=== PATIENT | female | born 1980 | race Caucasian/White ===

== ENCOUNTER 2020-09-26 15:01 | Inpatient (IN) | payer MEDICAID, SELFPAY ==
--- NOTE | ~2020-09-26 | XR_ITS ---
EXAMINATION: XR CHEST CLINICAL INFORMATION: Leukocytosis COMPARISON: None TECHNIQUE: Frontal view of the chest was obtained. FINDINGS: No convincing evidence for an acute process. No obvious failure or infiltrate. There is no effusion. XR/XR chest 1V IMPRESSION: No convincing evidence for an acute process.
--- NOTE | ~2020-09-26 | MR_ITS ---
EXAMINATION: MR CERVICAL SPINE WITHOUT AND WITH CONTRAST CLINICAL INFORMATION: Paraplegic. Uncontrollable muscle spasms. Severe neck pain. History of epidural abscess. COMPARISON: None available. TECHNIQUE: MRI of the cervical spine was obtained using routine sequences without and following the administration of 7.5 mL of Gadavist intravenous contrast. FINDINGS: Moderately motion degraded exam. Reversal the normal cervical lordosis centered on C5-C6. Erosive/destructive changes of the anterior C6 and C7 vertebral bodies. There is enhancement of the C5-C7 vertebral bodies. Phlegmonous enhancement within the prevertebral soft tissues from C5-C7. Mild edema within the posterior elements of C6 and C7. No additional marrow edema/enhancement within the remaining cervical segments. Advanced degenerative disc disease from C4-C7. Moderate degenerative disc disease at C3-C4. Increased T2 signal throughout the central and dorsal cord from C5-C7. No associated abnormal cord enhancement. No additional demonstrated soft tissue abnormalities in the visualized neck. The flow voids of the major cervical vessels are maintained. Normal appearance of the cervicomedullary junction and visualized posterior fossa. Moderate mucosal thickening of the sphenoid sinus. SPINAL LEVELS: C2-C3: Normal annular contour. There is mild right and no left uncovertebral joint arthropathy. There is moderate right and mild left facet joint arthropathy. There is mild right and no left neural foraminal stenosis. There is no spinal canal stenosis. C3-C4: Mild disc-osteophyte complex. There is no uncovertebral joint arthropathy. There is moderate bilateral facet joint arthropathy. There is mild left and no right neural foraminal stenosis. There is mild spinal canal stenosis. C4-C5: Moderate disc-osteophyte complex with superimposed shallow central disc protrusion. There is moderate right and mild left uncovertebral joint arthropathy. There is moderate bilateral facet joint arthropathy. There is moderate right and mild left neural foraminal stenosis. There is mild spinal canal stenosis. C5-C6: Moderate disc-osteophyte complex. There is moderate bilateral uncovertebral joint arthropathy. There is moderate bilateral facet joint arthropathy. There is moderate left and mild right neural foraminal stenosis. There is moderate spinal canal stenosis. C6-C7: Mild disc-osteophyte complex. There is mild bilateral uncovertebral joint arthropathy. There is mild bilateral facet joint arthropathy. There is no neural foraminal stenosis. There is no spinal canal stenosis. C7-T1: Mild disc-osteophyte complex. There is no uncovertebral joint arthropathy. There is no facet joint arthropathy. There is no neural foraminal stenosis. There is no spinal canal stenosis. MR/MR cervical spine wo/w con IMPRESSION: Exam is partially limited by motion. Within this limitation, there appears to be erosive/destructive change of the anterior C6-C7 vertebral bodies. Enhancement of the C5-C7 vertebral bodies with prevertebral soft tissue edema/enhancement. Findings are suspicious for a discitis-osteomyelitis complex from C5-C7. No discrete drainable fluid collection demonstrated. Moderate multilevel degenerative spondyloarthropathy of the cervical spine. Most notably, there appears to be mild to moderate spinal canal stenoses from C3-C6. Moderate neural foraminal stenoses at C4-C5 and C5-C6. Moderate T2 signal throughout the spinal cord from C5-C7 suggestive of chronic myelomalacia. No abnormal enhancement within the spinal cord at this time. No demonstrated epidural collection.
--- NOTE | ~2020-09-26 | CT_ITS ---
EXAMINATION: CT HEAD WITHOUT CONTRAST (STROKE PROTOCOL) CLINICAL INFORMATION: Stroke protocol. Severe headache on Lovenox. COMPARISON: There are no prior studies available for comparison. TECHNIQUE: Contiguous axial imaging was performed from the skull base to vertex without intravenous administration of contrast. This CT examination was performed using dose optimization techniques as appropriate, variously including the following: *Automated exposure control *Adjustment of mA and/or kV according to patient size (this includes techniques or standardized protocols for targeted exams where dose is matched to indication/reason for exam; i.e. extremities or head) *Use of iterative reconstruction technique DLP: 702 mGy-cm FINDINGS: There is no intracranial hemorrhage, hematoma, or extra-axial fluid collection. The ventricles are normal in size. There is no hydrocephalus, edema, or mass effect. The romero-white matter differentiation appears symmetric. There is no territorial acute infarct or mass lesion. The calvarium appears intact. There is no pneumocephalus or orbital emphysema. The mastoid air cells are well-aerated. The frontal sinuses are hypoplastic. There is extensive opacification of the bilateral sphenoid, ethmoid and maxillary sinuses. In addition there are fluid levels in the bilateral maxillary sinuses. CT/CT head for stroke IMPRESSION: 1. There are no acute bleeds or territorial infarcts. No masses are demonstrated. 2. There is severe pansinus opacification as described above, with fluid levels in the bilateral maxillary sinuses. 3. This critical result was discussed with Diann Forman by telephone on 09/26/2020 at 3:21 PM and it was ascertained that the content and urgency of the report was understood at the time of direct communication.
--- NOTE | ~2020-09-26 | MR_ITS ---
EXAMINATION: MR BRAIN WITHOUT AND WITH CONTRAST CLINICAL INFORMATION: Neck stiffness. Evaluate for meningitis. COMPARISON: CT scan of the head 09/26/2020. TECHNIQUE: Multiplanar MR imaging of the brain was performed without and with contrast. A total of 7.5 mL Gadavist was utilized for this examination. FINDINGS: Postcontrast images reveal no abnormal mass or enhancement within the intracranial compartment. No intracranial mass effect or midline shift. Lateral and third ventricles are normal. No hydrocephalus. Midline structures including the cervicomedullary junction are normal. Although only partially included within the [id number] of this examination there is multilevel degenerative spondylosis of the cervical spine with loss of normal bone marrow signal intensity involving the left facet joints at multiple levels and the adjoining endplates at C5-C6. Midline structures are otherwise unremarkable. There is no acute territorial infarct. No pathological magnetic susceptibility artifact. Intracranial vascular flow voids are maintained. There is a trace left mastoid tip effusion. Moderate to severe paranasal sinus disease. A perforation of the nasal septum is noted. Globes and orbits are unremarkable. MR/MR head/brain wo/w con IMPRESSION: There is advanced multilevel degenerative spondylosis of the cervical spine that is partially included within the previous examination. Otherwise unremarkable examination. No evidence of acute territorial infarct or hemorrhage. No abnormal intracranial mass or enhancement.
[2020-09-26 15:30] VITALS: BP 139/97; BP 180/110; PULSE 120; PULSE 128; RESP 16; TEMP 37; O2SAT 100; BMI 32.1
[2020-09-26] MEDS: HYDROmorphone HCl 1 MG/ML SYRINGE IVPUSH (15:37)
[2020-09-26] MEDS: LORazepam 2 MG/ML VIAL 1 MG IVPUSH (15:47)
[2020-09-26] MEDS: 0.9 % Sodium Chloride 1,000 ML 999 ML IVCONT ×2 (15:47→18:30)
[2020-09-26 15:56] VITALS: BP 157/92; PULSE 133; RESP 20; O2SAT 96
--- NOTE | 2020-09-26 16:18 | ED.HA ---
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 paraplegic, can move RUE somewhat c/o severe headache starting 45min [employer] is on lovenox 40m daily, worst headache of her life, was on the phone when it happened, completed antibiotics she is at local [facility] mental health director care, DNR/DNI MD elicited complaint: headache Pertinent past history: migraines Onset (ago): minute(s) (45) Onset description: suddenly Location: right Severity: severe Quality & Timing: throbbing Exacerbating factors: none Relieving factors: nothing Context: occurred at rest Associated symptoms: nausea, numbness and weakness Treatments prior to arrival: none Related Data Allergies Allergy/AdvReac Type Severity Reaction Status Date / Time Unable to Assess Allergy Verified 09/26/20 15:08 Review of Systems Review of Systems: Constitutional : No Fever, No Chills, No Fatigue ENT/Mouth : No sore throat, No Rhinorrhea Eyes: No Eye Pain, No Swelling, No Redness, pos neck pain Cardiovascular : No Chest Pain, No SOB, No Dyspnea on Exertion Respiratory : No Cough, No Sputum Gastrointestinal : No Nausea, No Vomiting, No Diarrhea, No abdominal Pain Genitourinary : No Dysuria, No Urinary Frequency, No Hematuria, Musculoskeletal : No joint pain, No Myalgias, No Joint Swelling Skin : No Skin Lesions, No rash Neuro : pos Weakness, pos Numbness, No Dizziness, positive Headache Psych : No Anxiety/Panic, No Depression Heme/Lymph: No Bruising, No Bleeding,No Lymphadenopathy Endocrine : No Polyuria, No Polydipsia All other systems reviewed and are negative [facility] Past Medical History Attestation statement: The following information was validated with the patient. Medical History Anxiety Borderline personality disorder Intraspinal abscess MDD (major depressive disorder) Muscle spasm Paraplegia Polysubstance abuse PTSD (post-traumatic stress disorder) Quadriparesis Tobacco dependence Social History Social History (Updated 09/26/20 @ 16:27 by Diann Brooklyn, DO) Smoking Status: Former smoker Use of substances other than those prescribed or required for medical reasons: No Advance Directives: Yes Physical Exam Vital Signs: Vital Signs: Last Vital Signs Temp 98.6 F 09/26/20 15:30 Pulse 133 H 09/26/20 15:56 Resp 20 09/26/20 15:56 BP 157/92 H 09/26/20 15:56 Pulse Ox 96 09/26/20 15:56 Body Mass Index 32.1 Appearance: Alert. Oriented X3. very anxious moderate acute distress. Eyes: Pupils equal, round and reactive to light. ENT: Pharynx dry MMM Neck: Normal inspection. Neck supple. CVS: tachycardic heart rate and rhythm. Pulses normal. Respiratory: No respiratory distress. Breath sounds normal. Abdomen: Soft and nontender. mild distention but no ttp Skin: Skin warm and dry. Normal skin color. poor skin turgor. Extremities: spastic, does not move LE Neuro: Oriented X 3. able to move RUE but LUE weaker baseline per her notes, spastic in nature states both hands her fingers feel tingling NIH Stroke Scale Internal: Initial- Upon Arrival Level of Consciousness: Alert Level of Consciousness Questions: Answers both questions correctly Level of Consciousness Commands: Performs both tasks correctly Best Gaze: Normal Visual: No visual loss Facial Palsy: Normal Motor Arm (Right): Drift Motor Arm (Left): Some effort against gravity Motor Leg (Right): No movement Motor Leg (Left): No movement Limb Ataxia: Present in one limb Sensory: Mild to moderate sensory loss Best Language: No aphasia Dysarthia: Normal Extinction and Inattention: Visual, tactile, auditory, spatial, or personal inattention Score: 14 Course Course Course Narrative: NIH 14 due to chronic issues and paraplegia her presentation would be more concerning for a SAH given lovenox use, but she will not be able to have LP, if MRI of neck is normal would consider CTA of head and neck signed out pending workup MDM - Headache MDM Narrative Medical decision making narrative: 40 yo female brought in as stroke alert for severe headache and both UE tingling but she is baseline paraplegia from epidural abscess - given her presentation daily lovenox use I do not think she is a tPa candidate I do not think this is ischemic stroke, labs, CT head, her neck is in severe pain as well will obtain MRI of cervical spine as well. Discharge Plan Discharge Clinical Impression: Headache Qualifiers: Headache type: unspecified Headache chronicity pattern: acute headache Intractability: intractable Qualified Code(s): R51.9 - Headache, unspecified
[2020-09-26 17:09] LABS: MANUAL DIFF FLAG NO
[2020-09-26 17:11] LABS: Basophils Absolute Auto 0.1 X10*3/uL (0.0-0.2); Basophils Percent Auto 0.4 % (0-2); Eosinophils Absolute Auto 0.2 X10*3/uL (0.0-0.4); Eosinophils Percent Auto 1.9 % (0-4); Hemoglobin 14.5 g/dl (12.0-16.0); Imm Gran Abs Auto 0.04 X10*3/uL (0.00-0.03); Imm Gran Pct Auto 0.3 % (0.0-0.4); Lymphocytes Absolute Auto 1.8 X10*3/uL (1.2-4.9); Lymphocytes Percent Auto 14.4 % (20-40); Mean Corpuscular Hemoglobin 28.5 pg (27.0-33.0); Mean Corpuscular Volume 86.6 fL (80-98); Mean Platelet Volume 8.2 fL (9.4-12.3); Monocytes Absolute Auto 0.5 X10*3/uL (0.1-1.2); Monocytes Percent Auto 3.8 % (2-11); Neutrophils Absolute Auto 10.1 X10*3/uL (2.0-8.3); Neutrophils Percent Auto 79.2 % (45-73); Platelet Count 633 X10*3/uL (160-400); Red Blood Count 5.08 X10*6/uL (4.20-5.50); Red Cell Distribution Width 11.9 % (11.0-16.0); White Blood Count 12.8 X10*3/uL (4.8-10.8)
[2020-09-26 17:16] LABS: INTERNATIONAL NORM RATIO 1.2 (0.9-1.1); Prothrombin Time 14.2 SEC (10.8-13.0)
[2020-09-26 17:19] LABS: Glucose, Whole Blood 113 mg/dL (60-115)
[2020-09-26 17:38] LABS: Anion Gap 18 (12-20); Blood Urea Nitrogen 8 mg/dL (9-16); Calcium 10.7 mg/dL (8.4-10.2); Carbon Dioxide 25 mmol/L (22-29); Chloride 103 mmol/L (96-108); Creatinine Clr Calc Pharmacy 112.5; Estimated Glomerular Filt Rate > 60; Glucose Random 105 mg/dL (60-115); Potassium 4.5 mmol/L (3.3-5.1); Sodium 141 mmol/L (135-145)
[2020-09-26 17:48] LABS: Troponin-I High Sensitivity 21.5 ng/L (<3.5-17.0)
[2020-09-26 18:26] LABS: Stroke Lab Use COMPLETE
[2020-09-26 18:34] VITALS: BP 123/9; PULSE 133; RESP 19; O2SAT 97
--- NOTE | 2020-09-26 18:37 | PC.NURSE ---
ns bolus started per md
[2020-09-26 19:40] VITALS: BP 110/64; PULSE 117; RESP 13; TEMP 37; O2SAT 100
[2020-09-26 20:20] VITALS: BP 108/59; PULSE 112; RESP 18; TEMP 36.8; O2SAT 98
--- NOTE | 2020-09-26 21:47 | PC.NURSE ---
Pt very anxious about this hospital not having adult briefs available. This RN spoke with Dania Killian, and Sven (patient's proof technician/friend) will be bringing adult briefs for the patient around 2am when he gets out of work. Pt aware of this and okay with this. Will continue to monitor.
[2020-09-26 22:06] VITALS: BP 112/64; PULSE 111; RESP 13; TEMP 37.5; O2SAT 99
[2020-09-26] MEDS: Piperacillin Sodium/Tazobactam 3.375 GM in 0.9 % Sodium Chloride 50 ML IV (22:30)
[2020-09-26 23:17] LABS: COVID-19 Test Negative (Negative); IDNOW Serial# 9DD0AD1C
--- NOTE | 2020-09-26 23:20 | P.HPHOSP_ITS ---
History of Present Illness Date of Service: 09/26/20 Chief Complaint: Headache/neck pain 40-year-old female with a past medical history of anxiety, depression, PTSD, migraine headaches, tobacco dependence, history of IV drug abuse, history of C5 spinal abscess subsequent resultant quadriplegia, currently long term resident presented to the hospital with a chief complaint of severe headache and neck pain. Patient reports that she has been having neck pain some time, no change in character. Mentioned that she has migraine headaches in the past and current headache is slightly different. But mentions is improving significantly at the time of my entry. Denies any blurry visions. Denies any fever chills cough. Denies any chest pain palpitations. Patient also denies having any pressure ulcers on the back. Complains of also some legs. Review of all other systems is negative except mentioned above ER course: Per ER team patient had CT head that showed no acute findings. Given IV Dilaudid with improvement in the headache. Follow-up MRI of the neck showed C5- C7 diskitis/osteomyelitis; started on IV vancomycin and Zosyn. Admitted to the hospital for further management. [facility] Medical History Anxiety Borderline personality disorder Intraspinal abscess MDD (major depressive disorder) Muscle spasm Paraplegia Polysubstance abuse PTSD (post-traumatic stress disorder) Quadriparesis Tobacco dependence Social History Household Members: Other Housing: [facility] Smoking Status: Former smoker Advance Directives Date on File: 09/26/20 service: No Current occupational status: disabled Meds Allergies Allergy/AdvReac Type Severity Reaction Status Date / Time Unable to Assess Allergy Verified 09/26/20 15:08 Active Medications: Current Medications Generic Name Dose Route Start Last Admin Trade Name Freq PRN Reason Stop Dose Admin Acetaminophen 650 mg 09/26/20 23:15 Acetaminophen 325 Mg Tablet PO Q6H PRN Pain, Mild (Pain Scale 1-3) Enoxaparin Sodium 40 mg 09/26/20 23:15 Enoxaparin Sodium 40 Mg/0.4 Ml Syringe SUBCUT Q24H ELIDIA Dextrose/Sodium Chloride 1,000 mls @ 100 mls/hr 09/26/20 23:15 D51/2ns IVCONT .Q10H ELIDIA Vancomycin HCl 1,000 mg/ 270 mls @ 270 mls/hr 09/26/20 23:30 Sodium Chloride IV Q12H [facility] Piperacillin Sod/Tazobactam 50 mls @ 100 mls/hr 09/26/20 23:30 Sod 3.375 gm/ Sodium Chloride IV Q6H ELIDIA Oxycodone HCl 5 mg 09/27/20 23:15 Oxycodone Hcl Immed Release 5 Mg Tablet PO Q6H PRN Pain, Severe (Pain Scale 7-10) Pharmacy Consult 1 each 09/26/20 23:18 Consult Rx Vancomycin Dosing MISCELLANE DAILY PRN Consult order Sodium Chloride 3 ml 09/27/20 00:00 0.9 % Sodium Chloride Flush 3 Ml Syringe IVFSH [facility] Home Medications Medication Instructions Recorded Confirmed Last Taken Type COVID-19 vacc,mRNA([facility])(PF) 0.3 ml IM ONCE 09/27/20 09/27/20 09/23/20 History Fleet Enema 118 ml KS DAILY PRN 09/27/20 09/27/20 Unknown History acetaminophen 650 mg PO Q4H PRN 09/27/20 09/27/20 09/26/20 History alum-mag hydroxide-simeth 30 ml PO QID PRN MDD 180 ml 09/27/20 09/27/20 09/26/20 History [Yesenia-Mox Antacid-Antigas] ammonium lactate 1 appl TOPICAL BID 09/27/20 09/27/20 09/26/20 History baclofen 10 mg PO TID 09/27/20 09/27/20 09/26/20 History benzocaine 3 mg PO Q2H PRN 09/27/20 09/27/20 09/26/20 History bisacodyl 10 mg KS DAILY PRN 09/27/20 09/27/20 09/26/20 History bupropion HCl [Wellbutrin XL] 300 mg PO QAM 09/27/20 09/27/20 09/26/20 History cholecalciferol (vitamin D3) 25 mcg PO DAILY 09/27/20 09/27/20 09/26/20 History cyclobenzaprine 10 mg PO TID 09/27/20 09/27/20 09/26/20 History diclofenac sodium 2 g TOPICAL Q6H PRN 09/27/20 09/27/20 09/26/20 History diphenhydramine HCl 25 mg PO Q6H PRN 09/27/20 09/27/20 09/26/20 History docusate sodium [Colace] 100 mg PO BID 09/27/20 09/27/20 09/26/20 History enoxaparin 40 mg SUBCUT DAILY 09/27/20 09/27/20 09/26/20 History fluticasone propionate 2 spray INTRANASAL DAILY 09/27/20 09/27/20 09/26/20 History hydrocortisone 1 appl TOPICAL Q8H PRN 09/27/20 09/27/20 09/26/20 History lorazepam 0.5 mg PO Q8H PRN 09/27/20 09/27/20 09/26/20 History magnesium citrate 150 ml PO DAILY PRN 09/27/20 09/27/20 09/26/20 History magnesium hydroxide [Milk of 30 ml PO DAILY PRN 09/27/20 09/27/20 09/26/20 History Magnesia] methadone 20 mg PO TID 09/27/20 09/27/20 09/26/20 History naloxone 4 mg INTRANASAL Q3M PRN 09/27/20 09/27/20 09/26/20 History ondansetron 4 mg PO Q4H PRN 09/27/20 09/27/20 09/26/20 History pantoprazole 40 mg PO DAILY 09/27/20 09/27/20 09/26/20 History polyethylene glycol 3350 [Miralax] 17 g PO DAILY 09/27/20 09/27/20 09/26/20 History sennosides 17.2 mg PO BID 09/27/20 09/27/20 09/26/20 History tizanidine [Zanaflex] 4 mg PO Q8H PRN 09/27/20 09/27/20 09/25/20 History tuberculin PPD 1 tb unit INTRADERMAL ONCE 09/27/20 09/27/20 09/24/20 History zolpidem [Ambien] 5 mg PO BEDTIME PRN 09/27/20 09/27/20 09/26/20 History gabapentin 200 mg PO TID 09/28/20 09/28/20 09/26/20 History Physical Exam Vital Signs and Narrative: Vital Signs: Last Vital Signs Temp 99.5 F 09/26/20 22:06 Pulse 111 H 09/26/20 22:06 Resp 13 09/26/20 22:06 BP 112/64 09/26/20 22:06 Pulse Ox 99 09/26/20 22:06 Body Mass Index 32.1 Gen: Appears be in no acute distress HEENT: NCAT, Moist mucosa. Pulmonary: Vesicular breath sounds, fair air entry CVS: Normal S1-S2 Abdomen: BS+, Soft, Nontender Extremities: Warm well perfused; ulcers on the leg appears healing. Neuro: Alert and awake. Quadriplegic Results Labs CBC and Chem 7: 09/29/20 06:23 09/27/20 05:29 Labs: Laboratory Results - last 24 hr 09/26/20 09/26/20 09/26/20 15:31 17:02 17:02 MCV 86.6 MCH 28.5 MCHC 33.0 RDW 11.9 Plt Count 633 H MPV 8.2 L Immature Gran % (Auto) 0.3 Neut % (Auto) 79.2 H Lymph % (Auto) 14.4 L [place] % (Auto) 3.8 Eos % (Auto) 1.9 Baso % (Auto) 0.4 Lymph # (Auto) 1.8 [place] # (Auto) 0.5 Eos # (Auto) 0.2 Baso # (Auto) 0.1 Abs Immat Gran (auto) 0.04 H Absolute Neuts (auto) 10.1 H Absolute Nucleated RBC 0.000 Nucleated RBC % (auto) 0.0 PT 14.2 H INR 1.2 H Anion Gap Estim Creat Clear Calc Estimated GFR POC Glucose 113 Random Glucose Calcium Troponin I High Sens Hold Red Top COVID-19 ([facility]) COVID-19 Clin Com 09/26/20 09/26/20 09/26/20 17:02 17:02 17:02 MCV MCH MCHC RDW Plt Count MPV Immature Gran % (Auto) Neut % (Auto) Lymph % (Auto) [place] % (Auto) Eos % (Auto) Baso % (Auto) Lymph # (Auto) [place] # (Auto) Eos # (Auto) Baso # (Auto) Abs Immat Gran (auto) Absolute Neuts (auto) Absolute Nucleated RBC Nucleated RBC % (auto) PT INR Anion Gap 18 Estim Creat Clear Calc 112.5 Estimated GFR > 60 POC Glucose Random Glucose 105 Calcium 10.7 H Troponin I High Sens 21.5 H Hold Red Top See Note COVID-19 ([facility]) COVID-19 Clin Com 09/26/20 22:58 MCV MCH MCHC RDW Plt Count MPV Immature Gran % (Auto) Neut % (Auto) Lymph % (Auto) [place] % (Auto) Eos % (Auto) Baso % (Auto) Lymph # (Auto) [place] # (Auto) Eos # (Auto) Baso # (Auto) Abs Immat Gran (auto) Absolute Neuts (auto) Absolute Nucleated RBC Nucleated RBC % (auto) PT INR Anion Gap Estim Creat Clear Calc Estimated GFR POC Glucose Random Glucose Calcium Troponin I High Sens Hold Red Top COVID-19 ([facility]) Negative COVID-19 Clin Com See Note Imaging Radiologist's Impressions: Impressions Head CT 09/26/20 15:08 IMPRESSION: 1. There are no acute bleeds or territorial infarcts. No masses are demonstrated. 2. There is severe pansinus opacification as described above, with fluid levels in the bilateral maxillary sinuses. 3. This critical result was discussed with Diann Forman by telephone on 09/26/2020 at 3:21 PM and it was ascertained that the content and urgency of the report was understood at the time of direct communication. Cervical Spine MRI 09/26/20 15:43 IMPRESSION: Exam is partially limited by motion. Within this limitation, there appears to be erosive/destructive change of the anterior C6-C7 vertebral bodies. Enhancement of the C5-C7 vertebral bodies with prevertebral soft tissue edema/enhancement. Findings are suspicious for a discitis-osteomyelitis complex from C5-C7. No discrete drainable fluid collection demonstrated. Moderate multilevel degenerative spondyloarthropathy of the cervical spine. Most notably, there appears to be mild to moderate spinal canal stenoses from C3-C6. Moderate neural foraminal stenoses at C4-C5 and C5-C6. Moderate T2 signal throughout the spinal cord from C5-C7 suggestive of chronic myelomalacia. No abnormal enhancement within the spinal cord at this time. No demonstrated epidural collection. Chest X-Ray 09/26/20 20:06 IMPRESSION: No convincing evidence for an acute process. Assessment and Plan (1) Cervical discitis: Status: Acute 40-year-old female with a past medical history of anxiety, depression, PTSD, history of migraines, history of C5 spinal abscess and subsequent quadriplegia currently long term resident; presented to the hospital with a c hief complaint of headache. Headache: Likely migraine headache. But patient reports slightly different in character. Denies any associated nausea vomiting or blurry visions. Improved with Dilaudid in the ER. If if the headache reoccurs will defer to the a.m. team to consider neurology consult C5-C7 diskitis/osteomyelitis: Continue vanc and Zosyn. Id consult Troponins elevated: Patient denies any chest pain. EKG nonischemic. Will repeat troponins. Spoke to Dr Pineda-> mentioned no acute intervention. Echocardiogram. History of quadriplegia: Chronic. Continue home medications. Patient reports that she is on gabapentin, baclofen, Flexeril, methadone, Xanax. Will be continued once med rec is completed/confirmed. Leg ulcers: Pressure ulcer care per RN. Appears healing. DVT prophylaxis: Lovenox Full code-> spoke to the patient. Patient wants her DNR status to be reversed to Full code.
[2020-09-26] MEDS: vancomycin HCL 1,000 MG in 0.9 % Sodium Chloride 250 ML 270 MG IV (23:44)
--- NOTE | 2020-09-27 | ECG_ITS ---
Test Reason : high trops Blood Pressure : / mmHG Vent. Rate : 106 BPM Atrial Rate : 106 BPM P-R Int : 152 ms QRS Dur : 076 ms QT Int : 386 ms P-R-T Axes : 039 066 068 degrees QTc Int : 512 ms Sinus tachycardia Prolonged QTc No previous ECGs available Referred By: Ernesto Constantino Electronically Signed By:KESHAWN STAHL
--- NOTE | 2020-09-27 00:35 | PC.NURSE ---
HOSPITALIST AT BEDSIDE EVALUATING PATIENT. COMPLETE LINEN CHANGE COMPLETED, BOWEL MOVEMENT NOTED.
[2020-09-27 01:47] LABS: Troponin-I High Sensitivity 68.6 ng/L (<3.5-17.0)
[2020-09-27] MEDS: 0.9 % Sodium Chloride Flush 3 ML SYRINGE IVFLUSH ×2 (02:56→14:16)
[2020-09-27] MEDS: Dextrose 5 % and 0.45 % NaCl 1,000 ML 100 ML IVCONT ×2 (02:56→08:59)
[2020-09-27] MEDS: Enoxaparin Sodium 40 MG/0.4 ML SYRINGE SUBCUT (02:57)
[2020-09-27] MEDS: LORazepam 0.5 MG TABLET PO (03:00)
[2020-09-27] MEDS: Cyclobenzaprine HCl 5 MG TABLET PO (03:00)
[2020-09-27] MEDS: Acetaminophen 325 MG TABLET 650 MG PO (03:00)
[2020-09-27] MEDS: oxyCODONE HCl Immed Release 5 MG TABLET PO (03:22)
[2020-09-27] MEDS: Zolpidem Tartrate 5 MG TABLET PO ×2 (03:23→22:43)
[2020-09-27] MEDS: Piperacillin Sodium/Tazobactam 3.375 GM in 0.9 % Sodium Chloride 50 ML IV ×4 (03:38→22:03)
[2020-09-27 04:00] VITALS: BP 104/56; PULSE 111; RESP 16; TEMP 37.2; O2SAT 100
[2020-09-27 06:06] LABS: MANUAL DIFF FLAG NO
[2020-09-27 06:27] VITALS: BMI 31.6
[2020-09-27 06:52] LABS: Basophils Percent Auto 0.3 % (0-2); Eosinophils Absolute Auto 0.2 X10*3/uL (0.0-0.4); Eosinophils Percent Auto 1.8 % (0-4); Hematocrit 33.6 % (37-47); Imm Gran Abs Auto 0.04 X10*3/uL (0.00-0.03); Imm Gran Pct Auto 0.3 % (0.0-0.4); Lymphocytes Absolute Auto 2.9 X10*3/uL (1.2-4.9); Lymphocytes Percent Auto 24.6 % (20-40); Mean Corpuscular HGB Conc 32.7 g/dl (31.0-35.0); Mean Corpuscular Hemoglobin 28.6 pg (27.0-33.0); Mean Corpuscular Volume 87.3 fL (80-98); Mean Platelet Volume 8.7 fL (9.4-12.3); Monocytes Absolute Auto 0.9 X10*3/uL (0.1-1.2); Monocytes Percent Auto 7.5 % (2-11); Neutrophils Absolute Auto 7.7 X10*3/uL (2.0-8.3); Neutrophils Percent Auto 65.5 % (45-73); Platelet Count 488 X10*3/uL (160-400); Red Blood Count 3.85 X10*6/uL (4.20-5.50); Red Cell Distribution Width 12.2 % (11.0-16.0); White Blood Count 11.7 X10*3/uL (4.8-10.8)
[2020-09-27 07:14] VITALS: BP 90/54; PULSE 109; RESP 20; TEMP 36.6; O2SAT 92
[2020-09-27 07:14] LABS: Blood Urea Nitrogen 12 mg/dL (9-16); Calcium 9.2 mg/dL (8.4-10.2); Creatinine Clr Calc Pharmacy 123.5; Estimated Glomerular Filt Rate > 60; Glucose Random 83 mg/dL (60-115)
--- NOTE | 2020-09-27 07:27 | PC.NURSE ---
0130; critical value troponin 68.6, MD notified. Patient denies any chest pain/discomfort at this time. Order for EKG, troponin labs for 0300. EKG done and sent to via [employer]. 0337; critical value troponin 50.0, notified via [employer]. No new orders at this time.
--- NOTE | 2020-09-27 07:30 | CA_ITS ---
Transthoracic Echocardiogram Patient (Last, First, Middle): Shiloh Lopez, Gender: Female Date of : 1980 Age: 40 Procedure Date: 09/27/2020 Procedure Type: Transthoracic Echocardiogram Location: [facility] Height: 154.94 cm Weight: 75.75 kg BSA: 1.75 m2 Heart Rate: bpm BP: 90 / 54 mmHg Brush Finisher: LIS Referring MD: Ernesto Constantino MD Symptoms: high trops Study Quality: Fair ECG Rhythm: Sinus Conclusions: - The left ventricular systolic function is normal. The visually estimated ejection fraction is between 60-65%. - No obvious valvular pathology seen on this study. Findings Left Ventricle Normal left ventricular cavity size. There is normal left ventricular wall thickness. The left ventricular systolic function is normal. The visually estimated ejection fraction is between 60-65%. There is no evidence of regional wall motion abnormalities. Diastolic function is normal for age. Right Ventricle Normal right ventricular cavity size and systolic function. Aortic Valve There is a normal trileaflet aortic valve. There is no aortic valve stenosis. There is no aortic valve regurgitation. Mitral Valve The mitral valve appears normal. There is trace mitral valve regurgitation. There is no mitral valve stenosis. Pulmonic Valve The pulmonic valve was not well visualized. Tricuspid Valve Normal tricuspid valve structure. There is trace tricuspid valve regurgitation. The pulmonary artery systolic pressure is normal. Great Vessels The aortic annulus, sinuses of valsalva, and asc aorta are normal in size. Venous The inferior vena cava is normal in size and collapses greater than 50% with inspiration. Pericardium/Pleural There is no evidence of pericardial effusion. Prior Study Comparison No prior study available for comparison. Recommendations, Care & Conclusions No obvious valvular pathology seen on this study. Measurements 2D Linear Measurements IVSd: 0.89 0.6-0.9/0.6-1.0 cm LVIDd: 3.68 3.9-5.3/4.2-5.9 cm LVIDd Index: 2.10 2.4-3.2/2.2-3.1 cm/m2 LVIDs: 2.25 2.0-3.6 cm LVPWd: 0.84 0.7-1.1 cm Ao Root: 2.50 2.1-3.5 cm LA Diam: 2.90 2.7-3.8/3.0-4.0 cm LAIDs Index: 1.66 1.5-2.3 cm/m2 LV Mass: 112.39 67-162/88-224 g LV Mass Index: 64.22 43-95/49-115 g/m2 LVOT Diam: 1.90 3.0+(-)1.3 cm 2D Systolic Function EF 4C: 57.50 >55% EF 2C: 76.00 >55% EF BiP: 67.00 >55% Mitral Valve MV Pk E: 0.97 MV PK A: 0.89 MV Decel Time: 109.00 E/A: 1.10 E'Lateral: 14.70 E'Medial: 8.80 E/E' Med: 11.00 E/E' Lat: 6.60 PHT: 32.00 MVA PHT: 6.[address] [place]: 8.87 Aortic Valve AoV Pk Carl: 1.58 AoV Mn Carl: 1.14 AoV VTI: 0.29 AoV Pk Grad: 10.00 Aov Mn Grad: 6.00 ROBERT Cont.VTI: 2.52 LVOT LVOT Pk Carl: 1.35 LVOT Mn Carl: 0.93 LVOT VTI: 0.26 LVOT Pk Grad: 7.00 LVOT Mn Grad: 4.00 LVOT Diam: 1.90 LVOT Area: 2.84 Diastolic Function MV Pk E: 0.97 MV Pk A: 0.89 E/A: 1.10 E'Medial: 8.80 E/E' Med: 11.00 E' Laterial: 14.70 E/E' Lat: 6.60 Tricuspid Valve TR Pk Carl: 1.86 TR Pk Grad: 14.00 RA Press: 3.00 RVSP: 17.00 Great Vessels Aorta Ao Root-2D: 2.50 2.0-3.7 cm Ao Asc: 2.40 2.1-3.4 cm Updated in Other Vendor System with Status of Final Pierre Pineda MD electronically signed on 09/27/2020 4:53:10 PM with status of Final
[2020-09-27 08:05] LABS: Anion Gap 15 (12-20); Carbon Dioxide 22 mmol/L (22-29); Chloride 104 mmol/L (96-108); Sodium 137 mmol/L (135-145)
[2020-09-27] MEDS: Cyclobenzaprine HCl 10 MG TABLET PO ×3 (08:56→20:39)
[2020-09-27] MEDS: methADONE HCl 10 MG TABLET 20 MG PO ×3 (08:57→20:40)
[2020-09-27] MEDS: Cholecalciferol (Vitamin D3) 25 MCG TABLET PO (08:57)
[2020-09-27] MEDS: Gabapentin 100 MG CAPSULE 200 MG PO ×3 (08:57→20:40)
[2020-09-27] MEDS: Docusate Sodium 100 MG CAPSULE PO ×2 (08:57→20:39)
[2020-09-27] MEDS: vancomycin HCL 1,000 MG in 0.9 % Sodium Chloride 250 ML 270 MG IV ×2 (08:58→15:54)
[2020-09-27] MEDS: Baclofen 10 MG TABLET PO ×3 (08:58→20:39)
[2020-09-27] MEDS: polyethylene glycoL 3350 17 GM POWD.PACK PO (08:59)
[2020-09-27] MEDS: TiZANidine HCL 4 MG TABLET PO ×2 (09:04→17:03)
[2020-09-27] MEDS: Fluticasone Propionate Nasal 16 GM SPRAY 2 SPRAY NOSTRIL-B (09:06)
--- NOTE | 2020-09-27 09:27 | HO.PM.IMPN ---
Subjective Subjective Date of Service: 09/28/20 Interval History: Patient resting comfortably in bed, feels headache is all better, complaining of neck pain but nothing worse than her baseline, denies fever chills asking for her methadone since she has not receive her dose since yesterday afternoon, no acute issues since admission, patient dozing off during conversation. 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 Pulmonary: Normal breath sounds, no acute respiratory distress. CVS: Normal S1-S2 Abdomen: Soft, Nontender, bowel sounds audible Extremities: Spastic , does not move left lower extremity, ulcers on the leg appears healing. Neuro: Alert and awake. Quadriplegic, able to move both upper extremities, left weaker than right. Objective Data Current Medications Generic Name Dose Route Start Last Admin Trade Name Freq PRN Reason Stop Dose Admin Acetaminophen 650 mg 09/26/20 23:15 09/27/20 03:00 Acetaminophen 325 Mg Tablet PO 650 mg Q6H PRN Administration Pain, Mild (Pain Scale 1-3) Baclofen 10 mg 09/27/20 09:00 09/27/20 08:58 Baclofen 10 Mg Tablet PO 10 mg TID ELIDIA Administration Bisacodyl 10 mg 09/27/20 02:13 Bisacodyl 10 Mg Supp.Rect AR DAILY PRN Constipation Bupropion HCl 300 mg 09/27/20 02:15 09/27/20 03:05 Bupropion Hcl Xl 300 Mg Tab.Er.24h PO Not Given DAILY ELIDIA Cyclobenzaprine HCl 5 mg 09/27/20 01:24 09/27/20 03:00 Cyclobenzaprine Hcl 5 Mg Tablet PO 5 mg BEDTIME PRN Administration spasm Cyclobenzaprine HCl 10 mg 09/27/20 09:00 09/27/20 08:56 Cyclobenzaprine Hcl 10 Mg Tablet PO 10 mg TID ELIDIA Administration Diphenhydramine HCl 25 mg 09/27/20 02:13 Diphenhydramine Hcl 25 Mg Tablet PO Q6H PRN Itching Docusate Sodium 100 mg 09/27/20 09:00 09/27/20 08:57 Docusate Sodium 100 Mg Capsule PO 100 mg BID ELIDIA Administration Enoxaparin Sodium 40 mg 09/27/20 00:00 09/27/20 02:57 Enoxaparin Sodium 40 Mg/0.4 Ml Syringe SUBCUT 40 mg Q24H ELIDIA Administration Fluticasone Propionate 2 spray 09/27/20 09:00 09/27/20 09:06 Fluticasone Propionate Nasal 16 Gm [place] NOSTRIL-B 2 spray DAILY ELIDIA Administration Gabapentin 200 mg 09/27/20 09:00 09/27/20 08:57 Gabapentin 100 Mg Capsule PO 200 mg TID ELIDIA Administration Dextrose/Sodium Chloride 1,000 mls @ 100 mls/hr 09/26/20 23:15 09/27/20 08:59 D51/2ns IVCONT 100 mls/hr .Q10H ELIDIA Administration Vancomycin HCl 1,000 mg/ 270 mls @ 270 mls/hr 09/27/20 08:00 09/27/20 08:58 Sodium Chloride IV 270 mls/hr Q8H ELIDIA Administration Piperacillin Sod/Tazobactam 50 mls @ 100 mls/hr 09/27/20 04:00 09/27/20 04:10 Sod 3.375 gm/ Sodium Chloride IV Infused Q6H ELIDIA Infusion Lorazepam 0.5 mg 09/27/20 02:13 09/27/20 03:00 Lorazepam 0.5 Mg Tablet PO 0.5 mg Q8H PRN Administration Anxiety Magnesium Hydroxide 30 ml 09/27/20 02:13 Milk Of Magnesia 30 Ml Oral.Susp PO DAILY PRN Constipation Methadone HCl 20 mg 09/27/20 09:00 09/27/20 08:57 Methadone Hcl 10 Mg Tablet PO 20 mg TID ELIDIA Administration Naloxone HCl 4 mg 09/27/20 02:13 Naloxone Hcl Nasal 4 Mg [place] NOSTRILALT Q3M PRN Opioid Overdose Pharmacy Consult 1 each 09/26/20 23:18 Consult Rx Vancomycin Dosing MISCELLANE DAILY PRN Consult order Polyethylene Glycol 17 gm 09/27/20 09:00 09/27/20 08:59 Polyethylene Glycol 3350 17 Gm Powd.Pack PO 17 gm DAILY ELIDIA Administration Sodium Biphosphate/Sodium Phosphate 133 ml 09/27/20 02:13 Sodium Phosphate,[place]-Dibasic 133 Ml Enema AR DAILY PRN Constipation Sodium Chloride 3 ml 09/27/20 00:00 09/27/20 08:58 0.9 % Sodium Chloride Flush 3 Ml Syringe IVFLUSH Not Given QSHIFT ELIDIA Tizanidine HCl 4 mg 09/27/20 02:13 09/27/20 09:04 Tizanidine Hcl 4 Mg Tablet PO 4 mg Q8H PRN Administration Spasms Vitamin D 25 mcg 09/27/20 09:00 09/27/20 08:57 Cholecalciferol (Vitamin D3) 25 Mcg Tablet PO 25 mcg DAILY ELIDIA Administration Zolpidem Tartrate 5 mg 09/27/20 02:13 09/27/20 03:23 Zolpidem Tartrate 5 Mg Tablet PO 5 mg BEDTIME PRN Administration sleep Labs CBC & Chem 7: 09/27/20 05:30 09/27/20 05:29 Assessment and Plan (1) Headache: Status: Acute (2) Cervical discitis: Status: Acute Assessment and Plan: 40-year-old female with a past medical history of anxiety, depression, PTSD, history of migraines, history of C5 spinal abscess and subsequent quadriplegia currently jail resident; presented to the hospital with a chief complaint of headache. Headache: Resolved, has history of migraine headache. No associated nausea vomiting fever chills continue close clinical follow-up. Sepsis/C5-C7 diskitis/osteomyelitis : Complaining of neck discomfort, that is chronic, Patient with history of C5 spinal abscess was treated at [facility] in May of 2020, will get old records from [facility] to compare MRI study, patient currently has no worsening of her baseline neck pain, no fever, chills, Continue vanc and Zosyn day 2. Order blood culture, Will discuss treatment with Infectious Disease Low blood pressure and map related to narcotic medications, since patient received Dilaudid, lorazepam and oxycodone in the emergency room , no evidence of severe sepsis. IV antibiotics changed to normal saline due to low blood pressure. Troponins elevated: Patient denies any chest pain. EKG nonischemic. Initial troponin 21 bumped up to 68.6 repeat trending down to 50, case d/w Dr Pineda, no acute coronary disease suspected, will follow Echocardiogram. History of quadriplegia: Chronic. Continue home medications gabapentin, baclofen, Flexeril, and methadone. Leg ulcers: Pressure ulcer care per RN. Appears healing. DVT prophylaxis: Lovenox Full code-> Dr. Constantino spoke to the patient, she reversed her DNR code status to Full code.
--- NOTE | 2020-09-27 09:45 | MHC.CM.PN ---
CM met with patient at the bedside who reports she is a quadriplegic and is mostly bed bound, does not have a wheel chair yet. Patient is a resident at [facility] and discharge plan is to return there via BLS transport. CM helped patient to fill out a HCP who will be her mom Wendy Frazier [phone], a copy is place on file. CM will continue to follow patient for discharge needs.
--- NOTE | 2020-09-27 10:26 | PM.CNCAR ---
History of Present Illness History of Present Illness Date of Service: 09/27/20 Chief complaint: DISKITIS Narrative: This is a cardiology consultation regarding elevated troponins. Patient is admitted for neck pain and thought to have osteomyelitis. In that setting, high sensitivity troponins have been checked and found to be slightly elevated. Patient does not have any known cardiac problems. There is a history of IV drug use but she states that she has not done this in many years now. She was apparently found to have cervical spine issues last year and that led to quadriplegia. Otherwise this time, she is having neck pain but no specific cardiac complaints like angina or shortness of breath or palpitations among others. Review of Systems Review of Systems: Yes all other systems are reviewed and are negative Cardiovascular: Cardiovascular: Reports as per HPI, Reports no additional cardiovascular complaints, Denies acrocyanosis, Denies cool extremities, Denies painful fingertips, Denies chest pain, Denies chest pain at rest, Denies diaphoresis, Denies syncope, Denies irregular heart rhythm, Denies claudication, Denies leg edema, Denies lightheadedness, Denies palpitations and Denies dyspnea Respiratory: Respiratory: Denies dyspnea Neurologic: Denies syncope Endocrine: Endocrine: Denies palpitations PMFSH Past Medical History Medical History (Updated 09/27/20 @ 10:31 by Pierre Pineda MD) Anxiety Borderline personality disorder Intraspinal abscess MDD (major depressive disorder) Muscle spasm Paraplegia Polysubstance abuse PTSD (post-traumatic stress disorder) Quadriparesis Tobacco dependence Family History Family history: reviewed and not pertinent Social History Social History (Updated 09/26/20 @ 16:27 by Diann Forman DO) Household Members: Other Household Members Other:: [employer]ENTION Housing: Snf Smoking Status: Former smoker Use of substances other than those prescribed or required for medical reasons: No Advance Directives: Yes Advance Directives Date on File: 09/26/20 Do you have thoughts of harming others: None Do you have a plan to hurt others: No Plan Recently lost weight without trying: Unsure service: No Current occupational status: disabled Meds Allergies Allergy/AdvReac Type Severity Reaction Status Date / Time Unable to Assess Allergy Verified 09/26/20 15:08 Active Medications: Current Medications Generic Name Dose Route Start Last Admin Trade Name Freq PRN Reason Stop Dose Admin Acetaminophen 650 mg 09/26/20 23:15 09/27/20 03:00 Acetaminophen 325 Mg Tablet PO 650 mg Q6H PRN Administration Pain, Mild (Pain Scale 1-3) Baclofen 10 mg 09/27/20 09:00 09/27/20 08:58 Baclofen 10 Mg Tablet PO 10 mg TID ELIDIA Administration Bisacodyl 10 mg 09/27/20 02:13 Bisacodyl 10 Mg Supp.Rect HI DAILY PRN Constipation Bupropion HCl 300 mg 09/27/20 02:15 09/27/20 03:05 Bupropion Hcl Xl 300 Mg Tab.Er.24h PO Not Given DAILY ELIDIA Cyclobenzaprine HCl 5 mg 09/27/20 01:24 09/27/20 03:00 Cyclobenzaprine Hcl 5 Mg Tablet PO 5 mg BEDTIME PRN Administration spasm Cyclobenzaprine HCl 10 mg 09/27/20 09:00 09/27/20 08:56 Cyclobenzaprine Hcl 10 Mg Tablet PO 10 mg TID ELIDIA Administration Diphenhydramine HCl 25 mg 09/27/20 02:13 Diphenhydramine Hcl 25 Mg Tablet PO Q6H PRN Itching Docusate Sodium 100 mg 09/27/20 09:00 09/27/20 08:57 Docusate Sodium 100 Mg Capsule PO 100 mg BID ELIDIA Administration Enoxaparin Sodium 40 mg 09/27/20 00:00 09/27/20 02:57 Enoxaparin Sodium 40 Mg/0.4 Ml Syringe SUBCUT 40 mg Q24H ELIDIA Administration Fluticasone Propionate 2 spray 09/27/20 09:00 09/27/20 09:06 Fluticasone Propionate Nasal 16 Gm [place] NOSTRIL-B 2 spray DAILY ELIDIA Administration Gabapentin 200 mg 09/27/20 09:00 09/27/20 08:57 Gabapentin 100 Mg Capsule PO 200 mg TID ELIDIA Administration Vancomycin HCl 1,000 mg/ 270 mls @ 270 mls/hr 09/27/20 08:00 09/27/20 10:15 Sodium Chloride IV Infused Q8H ELIDIA Infusion Piperacillin Sod/Tazobactam 50 mls @ 100 mls/hr 09/27/20 04:00 09/27/20 04:10 Sod 3.375 gm/ Sodium Chloride IV Infused Q6H ELIDIA Infusion Sodium Chloride 1,000 mls @ 100 mls/hr 09/27/20 10:00 Ns IVCONT .Q10H ELIDIA Lorazepam 0.5 mg 09/27/20 02:13 09/27/20 03:00 Lorazepam 0.5 Mg Tablet PO 0.5 mg Q8H PRN Administration Anxiety Magnesium Hydroxide 30 ml 09/27/20 02:13 Milk Of Magnesia 30 Ml Oral.Susp PO DAILY PRN Constipation Methadone HCl 20 mg 09/27/20 09:00 09/27/20 08:57 Methadone Hcl 10 Mg Tablet PO 20 mg TID ELIDIA Administration Naloxone HCl 4 mg 09/27/20 02:13 Naloxone Hcl Nasal 4 Mg [place] NOSTRILALT Q3M PRN Opioid Overdose Pharmacy Consult 1 each 09/26/20 23:18 Consult Rx Vancomycin Dosing MISCELLANE DAILY PRN Consult order Polyethylene Glycol 17 gm 09/27/20 09:00 09/27/20 08:59 Polyethylene Glycol 3350 17 Gm Powd.Pack PO 17 gm DAILY ELIDIA Administration Sodium Biphosphate/Sodium Phosphate 133 ml 09/27/20 02:13 Sodium Phosphate,[place]-Dibasic 133 Ml Enema [place] DAILY PRN Constipation Sodium Chloride 3 ml 09/27/20 00:00 09/27/20 08:58 0.9 % Sodium Chloride Flush 3 Ml Syringe IVFLUSH Not Given QSHIFT [facility] Tizanidine HCl 4 mg 09/27/20 02:13 09/27/20 09:04 Tizanidine Hcl 4 Mg Tablet PO 4 mg Q8H PRN Administration Spasms Vitamin D 25 mcg 09/27/20 09:00 09/27/20 08:57 Cholecalciferol (Vitamin D3) 25 Mcg Tablet PO 25 mcg DAILY ELIDIA Administration Zolpidem Tartrate 5 mg 09/27/20 02:13 09/27/20 03:23 Zolpidem Tartrate 5 Mg Tablet PO 5 mg BEDTIME PRN Administration sleep Home Medications Medication Instructions Recorded Confirmed Last Taken Type COVID-19 vacc,mRNA(Pfizer)(PF) 0.3 ml IM ONCE 09/27/20 09/27/20 09/23/20 History acetaminophen 650 mg PO Q4H PRN 09/27/20 09/27/20 09/26/20 History alum-mag hydroxide-simeth 30 ml PO QID PRN MDD 180 ml 09/27/20 09/27/20 09/26/20 History [Yesenia-Mox Antacid-Antigas] ammonium lactate 1 appl TOPICAL BID 09/27/20 09/27/20 09/26/20 History baclofen 10 mg PO TID 09/27/20 09/27/20 09/26/20 History benzocaine 3 mg PO Q2H PRN 09/27/20 09/27/20 09/26/20 History bisacodyl 10 mg [place] DAILY PRN 09/27/20 09/27/20 09/26/20 History bupropion HCl [Wellbutrin XL] 300 mg PO QAM 09/27/20 09/27/20 09/26/20 History cholecalciferol (vitamin D3) 25 mcg PO DAILY 09/27/20 09/27/20 09/26/20 History cyclobenzaprine 10 mg PO TID 09/27/20 09/27/20 09/26/20 History diclofenac sodium 2 g TOPICAL Q6H PRN 09/27/20 09/27/20 09/26/20 History diphenhydramine HCl 25 mg PO Q6H PRN 09/27/20 09/27/20 09/26/20 History docusate sodium [Colace] 100 mg PO BID 09/27/20 09/27/20 09/26/20 History enoxaparin 40 mg SUBCUT DAILY 09/27/20 09/27/20 09/26/20 History fluticasone propionate 2 spray INTRANASAL DAILY 09/27/20 09/27/20 09/26/20 History gabapentin 200 mg PO TID 09/27/20 09/27/20 09/26/20 History hydrocortisone 1 appl TOPICAL Q8H PRN 09/27/20 09/27/20 09/26/20 History lorazepam 0.5 mg PO Q8H PRN 09/27/20 09/27/20 09/26/20 History magnesium citrate 150 ml PO DAILY PRN 09/27/20 09/27/20 09/26/20 History magnesium hydroxide [Milk of 30 ml PO DAILY PRN 09/27/20 09/27/20 09/26/20 History Magnesia] methadone 20 mg PO TID 09/27/20 09/27/20 09/26/20 History naloxone 4 mg INTRANASAL Q3M PRN 09/27/20 09/27/20 09/26/20 History ondansetron 4 mg PO Q4H PRN 09/27/20 09/27/20 09/26/20 History pantoprazole 40 mg PO DAILY 09/27/20 09/27/20 09/26/20 History polyethylene glycol 3350 [Miralax] 17 g PO DAILY 09/27/20 09/27/20 09/26/20 History sennosides 17.2 mg PO BID 09/27/20 09/27/20 09/26/20 History sodium phosphates [Fleet Enema] 118 ml HI DAILY PRN 09/27/20 09/27/20 Unknown History tizanidine [Zanaflex] 4 mg PO Q8H PRN 09/27/20 09/27/20 09/25/20 History tuberculin PPD 1 tb unit INTRADERMAL ONCE 09/27/20 09/27/20 09/24/20 History zolpidem [Ambien] 5 mg PO BEDTIME PRN 09/27/20 09/27/20 09/26/20 History Physical Exam Vital Signs: Vital Signs: Last Vital Signs Temp 98 F 09/27/20 07:14 Pulse 109 H 09/27/20 07:14 Resp 20 09/27/20 07:14 BP 90/54 L 09/27/20 07:14 Pulse Ox 92 09/27/20 07:14 Body Mass Index 31.6 Const: General: cooperative, comfortable and no acute distress Orientation/consciousness: patient oriented x3 HENMT: Other: Unremarkable Neck: Neck: Yes normal visual inspection Chest: Chest palpation & inspection: normal inspection of the chest Resp: Auscultation: clear to auscultation bilaterally, no crackles and no wheezes Cardio: Jugular venous distension: no JVD Palpation: normal PMI Heart sounds: S1 normal heart sound present, S2 normal heart sound present, no gallops, no murmurs and no rubs GI: Palpation (GI): Soft to palpation Back/Spine/Pelvis: Other: unremarkable Skin: General skin exam: no rashes or lesions noted Neuro: General: patient oriented x3 Extrem: General: Yes no clubbing, cyanosis or edema Psych: Mental Status: mental status grossly normal Results Labs and Meds Result diagrams: 09/27/20 05:30 09/27/20 05:29 Lab results: Laboratory Results - last 24 hr 09/26/20 09/26/20 09/26/20 15:31 17:02 17:02 WBC 12.8 H RBC 5.08 Hgb 14.5 Hct 44.0 MCV 86.6 MCH 28.5 MCHC 33.0 RDW 11.9 Plt Count 633 H MPV 8.2 L Immature Gran % (Auto) 0.3 Neut % (Auto) 79.2 H Lymph % (Auto) 14.4 L [place] % (Auto) 3.8 Eos % (Auto) 1.9 Baso % (Auto) 0.4 Lymph # (Auto) 1.8 [place] # (Auto) 0.5 Eos # (Auto) 0.2 Baso # (Auto) 0.1 Abs Immat Gran (auto) 0.04 H Absolute Neuts (auto) 10.1 H Absolute Nucleated RBC 0.000 Nucleated RBC % (auto) 0.0 PT 14.2 H INR 1.2 H Sodium Potassium Chloride Carbon Dioxide Anion Gap BUN Creatinine Estim Creat Clear Calc Estimated GFR POC Glucose 113 Random Glucose Calcium Total Creatine Kinase Troponin I High Sens Hold Red Top COVID-19 (AARON) COVIDMaterial Wr[place] 09/26/20 09/26/20 09/26/20 17:02 17:02 17:02 WBC RBC Hgb Hct MCV MCH MCHC RDW Plt Count MPV Immature Gran % (Auto) Neut % (Auto) Lymph % (Auto) [place] % (Auto) Eos % (Auto) Baso % (Auto) Lymph # (Auto) [place] # (Auto) Eos # (Auto) Baso # (Auto) Abs Immat Gran (auto) Absolute Neuts (auto) Absolute Nucleated RBC Nucleated RBC % (auto) PT INR Sodium 141 Potassium 4.5 Chloride 103 Carbon Dioxide 25 Anion Gap 18 BUN 8 L Creatinine 0.63 Estim Creat Clear Calc 112.5 Estimated GFR > 60 POC Glucose Random Glucose 105 Calcium 10.7 H Total Creatine Kinase 74 Troponin I High Sens 21.5 H Hold Red Top See Note COVID-19 (AARON) COVID-[employer] 09/26/20 09/27/20 09/27/20 22:58 00:25 03:01 WBC RBC Hgb Hct MCV MCH MCHC RDW Plt Count MPV Immature Gran % (Auto) Neut % (Auto) Lymph % (Auto) [place] % (Auto) Eos % (Auto) Baso % (Auto) Lymph # (Auto) [place] # (Auto) Eos # (Auto) Baso # (Auto) Abs Immat Gran (auto) Absolute Neuts (auto) Absolute Nucleated RBC Nucleated RBC % (auto) PT INR Sodium Potassium Chloride Carbon Dioxide Anion Gap BUN Creatinine Estim Creat Clear Calc Estimated GFR POC Glucose Random Glucose Calcium Total Creatine Kinase Troponin I High Sens 68.6 H D 50.0 H Hold Red Top COVID-19 (AARON) Negative COVID-19 Clin Com See Note 09/27/20 09/27/20 05:29 05:30 WBC 11.7 H RBC 3.85 L D Hgb 11.0 L D Hct 33.6 L D MCV 87.3 MCH 28.6 MCHC 32.7 RDW 12.2 Plt Count 488 H MPV 8.7 L Immature Gran % (Auto) 0.3 Neut % (Auto) 65.5 Lymph % (Auto) 24.6 [place] % (Auto) 7.5 Eos % (Auto) 1.8 Baso % (Auto) 0.3 Lymph # (Auto) 2.9 [place] # (Auto) 0.9 Eos # (Auto) 0.2 Baso # (Auto) 0.0 Abs Immat Gran (auto) 0.04 H Absolute Neuts (auto) 7.7 Absolute Nucleated RBC 0.000 Nucleated RBC % (auto) 0.0 PT INR Sodium 137 Potassium 4.0 Chloride 104 Carbon Dioxide 22 Anion Gap 15 BUN 12 Creatinine 0.57 Estim Creat Clear Calc 123.5 Estimated GFR > 60 POC Glucose Random Glucose 83 Calcium 9.2 D Total Creatine Kinase Troponin I High Sens Hold Red Top COVID-19 (AARON) COVID-19 Clin Com ECG Attestation: I personally reviewed and interpreted this ECG as follows: Interpretation: EKG on admission shows sinus tachycardia at 01:06/Min; no significant ST-T changes; QTc prolonged to 512 milliseconds. Imaging Radiologist's impression: Impressions Head CT 09/26/20 15:08 IMPRESSION: 1. There are no acute bleeds or territorial infarcts. No masses are demonstrated. 2. There is severe pansinus opacification as described above, with fluid levels in the bilateral maxillary sinuses. 3. This critical result was discussed with Diann Forman by telephone on 09/26/2020 at 3:21 PM and it was ascertained that the content and urgency of the report was understood at the time of direct communication. Cervical Spine MRI 09/26/20 15:43 IMPRESSION: Exam is partially limited by motion. Within this limitation, there appears to be erosive/destructive change of the anterior C6-C7 vertebral bodies. Enhancement of the C5-C7 vertebral bodies with prevertebral soft tissue edema/enhancement. Findings are suspicious for a discitis-osteomyelitis complex from C5-C7. No discrete drainable fluid collection demonstrated. Moderate multilevel degenerative spondyloarthropathy of the cervical spine. Most notably, there appears to be mild to moderate spinal canal stenoses from C3-C6. Moderate neural foraminal stenoses at C4-C5 and C5-C6. Moderate T2 signal throughout the spinal cord from C5-C7 suggestive of chronic myelomalacia. No abnormal enhancement within the spinal cord at this time. No demonstrated epidural collection. Chest X-Ray 09/26/20 20:06 IMPRESSION: No convincing evidence for an acute process. Assessment and Plan (1) Elevated troponin: Status: Acute (2) Osteomyelitis: Qualifiers: Osteomyelitis type: unspecified type Osteomyelitis location: unspecified site Qualified Code(s): M86.9 - Osteomyelitis, unspecified Status: Acute (3) Quadriparesis: Status: Acute Elevated troponins are nonspecific in this setting. It is possible that she may have endocarditis but we do not have any positive blood cultures at this time. Empiric antibiotics per primary team. Otherwise if she is able to cooperate with her neck pain, can perform an echocardiogram for further evaluation. Will follow-up. Procedures Date of Service Date of Service: 09/27/20
[2020-09-27] MEDS: 0.9 % Sodium Chloride 1,000 ML 100 ML IVCONT ×2 (10:42→22:04)
[2020-09-27 11:08] VITALS: BMI 31.6
[2020-09-27 11:15] VITALS: BP 99/50; PULSE 98; RESP 18; TEMP 36.1; O2SAT 96
[2020-09-27 15:44] LABS: Glucose Urine UA NEG (NEG); Leukocyte Esterase Urine 1+ (NEG); Nitrite Urine POS (NEG); UACC Culture Trigger YES; Urine Blood NEG (NEG); Urine Ketones NEG (NEG); Urine Protein NEG (NEG-TRACE)
[2020-09-27 15:45] LABS: Appearance Urine CLEAR; Color Urine YELLOW
[2020-09-27 15:52] VITALS: BP 117/64; PULSE 93; RESP 18; TEMP 36.8; O2SAT 96
[2020-09-27 15:54] LABS: Bacteria Urine 1+ /LPF; RBC Urine 0 /HPF (0); WBC Urine 0-2 /HPF (0-4)
[2020-09-27 19:27] VITALS: BP 112/55; PULSE 95; RESP 18; TEMP 36.3; O2SAT 97
--- NOTE | 2020-09-27 21:38 | W.PM.IDCN ---
History of Present Illness Data of Consult Service Date: 09/27/20 Requesting physician: Jose Lo Primary Care Provider: Rui Montemayor MD HPI Reason for consult: headache,neck pain She presents with midcervical neck pain 02/02 ,described as different from prior neck pain for last 1-2 days She has no fever or chills She also has frontal headache 01/03 She is now quadriplegic with 2/5 RUE motion She was seen [place] [facility] [place] and neck pain and found to have MRI with prevertebral phlegmon and large multiloculated abscess C4 to T1 and C5-C6 cervical narrowing She also had prevertebral abscess I and D retrophayngeal abscess MSSA per ENT She has spinal cord edema as cause of paraplegia with little improvement and cause felt not to be due to epidural compression but spinal cord edema MRI indicated likely chronic osteomyelitis at that time C5-C7 She had Oxacillin for MSSA bacteremia 06/29 to 07/28 with transfer to Rehab Also one culture grew [place] albicans She has no alteration in consciousness HIV test is negative and Hepatitis C positive antibody but viral load undetectable Review of Systems Review of Systems: Yes all other systems are reviewed and are negative [facility] Past Medical History Medical History Anxiety Borderline personality disorder Cervical discitis Elevated troponin Headache Intraspinal abscess MDD (major depressive disorder) Muscle spasm Osteomyelitis Paraplegia Polysubstance abuse PTSD (post-traumatic stress disorder) Quadriparesis Tobacco dependence Family History Family history: reviewed and not pertinent Social History Social History Household Members: Other Housing: Intermediate Alcohol intake: never Smoking Status: Former smoker Smoked in Last 30 Days: Yes Use of substances other than those prescribed or required for medical reasons: No Advance Directives: No Advance Directives Information Provided: No Advance Directives Date on File: 09/26/20 service: No Current occupational status: disabled Meds Allergies Allergy/AdvReac Type Severity Reaction Status Date / Time No Known Allergies Allergy Verified 10/09/20 02:10 Active Medications: Current Medications Generic Name Dose Route Start Last Admin Trade Name Freq PRN Reason Stop Dose Admin Acetaminophen 650 mg 09/26/20 23:15 09/27/20 03:00 Acetaminophen 325 Mg Tablet PO 650 mg Q6H PRN Administration Pain, Mild (Pain Scale 1-3) Baclofen 10 mg 09/27/20 09:00 09/27/20 20:39 Baclofen 10 Mg Tablet PO 10 mg TID ELIDIA Administration Bisacodyl 10 mg 09/27/20 02:13 Bisacodyl 10 Mg Supp.Rect [place] DAILY PRN Constipation Bupropion HCl 300 mg 09/27/20 02:15 09/27/20 03:05 Bupropion Hcl Xl 300 Mg Tab.Er.24h PO Not Given DAILY ELIDIA Cyclobenzaprine HCl 5 mg 09/27/20 01:24 09/27/20 03:00 Cyclobenzaprine Hcl 5 Mg Tablet PO 5 mg BEDTIME PRN Administration spasm Cyclobenzaprine HCl 10 mg 09/27/20 09:00 09/27/20 20:39 Cyclobenzaprine Hcl 10 Mg Tablet PO 10 mg TID ELIDIA Administration Diphenhydramine HCl 25 mg 09/27/20 02:13 Diphenhydramine Hcl 25 Mg Tablet PO Q6H PRN Itching Docusate Sodium 100 mg 09/27/20 09:00 09/27/20 20:39 Docusate Sodium 100 Mg Capsule PO 100 mg BID ELIDIA Administration Enoxaparin Sodium 40 mg 09/27/20 00:00 09/27/20 02:57 Enoxaparin Sodium 40 Mg/0.4 Ml Syringe SUBCUT 40 mg Q24H ELIDIA Administration Fluticasone Propionate 2 spray 09/27/20 09:00 09/27/20 09:06 Fluticasone Propionate Nasal 16 Gm [place] NOSTRIL-B 2 spray DAILY ELIDIA Administration Gabapentin 200 mg 09/27/20 09:00 09/27/20 20:40 Gabapentin 100 Mg Capsule PO 200 mg TID ELIDIA Administration Vancomycin HCl 1,000 mg/ 270 mls @ 270 mls/hr 09/27/20 08:00 09/27/20 17:04 Sodium Chloride IV Infused Q8H [facility] Infusion Piperacillin Sod/Tazobactam 50 mls @ 100 mls/hr 09/27/20 04:00 09/27/20 18:14 Sod 3.375 gm/ Sodium Chloride IV Infused Q6H ELIDIA Infusion Sodium Chloride 1,000 mls @ 100 mls/hr 09/27/20 10:00 09/27/20 10:42 Ns IVCONT 100 mls/hr .Q10H ELIDIA Administration Lorazepam 0.5 mg 09/27/20 02:13 09/27/20 03:00 Lorazepam 0.5 Mg Tablet PO 0.5 mg Q8H PRN Administration Anxiety Magnesium Hydroxide 30 ml 09/27/20 02:13 Milk Of Magnesia 30 Ml Oral.Susp PO DAILY PRN Constipation Methadone HCl 20 mg 09/27/20 09:00 09/27/20 20:40 Methadone Hcl 10 Mg Tablet PO 20 mg TID ELIDIA Administration Naloxone HCl 4 mg 09/27/20 02:13 Naloxone Hcl Nasal 4 Mg [place] NOSTRILALT Q3M PRN Opioid Overdose Pharmacy Consult 1 each 09/26/20 23:18 Consult Rx Vancomycin Dosing MISCELLANE DAILY PRN Consult order Polyethylene Glycol 17 gm 09/27/20 09:00 09/27/20 08:59 Polyethylene Glycol 3350 17 Gm Powd.Pack PO 17 gm DAILY ELIDIA Administration Sodium Biphosphate/Sodium Phosphate 133 ml 09/27/20 02:13 Sodium Phosphate,[place]-Dibasic 133 Ml Enema [place] DAILY PRN Constipation Sodium Chloride 3 ml 09/27/20 00:00 09/27/20 14:16 0.9 % Sodium Chloride Flush 3 Ml Syringe IVFLUSH 3 ml QSHIFT ELIDIA Administration Tizanidine HCl 4 mg 09/27/20 02:13 09/27/20 17:03 Tizanidine Hcl 4 Mg Tablet PO 4 mg Q8H PRN Administration Spasms Vitamin D 25 mcg 09/27/20 09:00 09/27/20 08:57 Cholecalciferol (Vitamin D3) 25 Mcg Tablet PO 25 mcg DAILY ELIDIA Administration Zolpidem Tartrate 5 mg 09/27/20 02:13 09/27/20 03:23 Zolpidem Tartrate 5 Mg Tablet PO 5 mg BEDTIME PRN Administration sleep Home Medications Medication Instructions Recorded Confirmed Last Taken Type Fleet Enema 118 ml [place] DAILY PRN 09/27/20 10/09/20 Unknown History alum-mag hydroxide-simeth 30 ml PO QID PRN MDD 180 ml 09/27/20 10/09/20 09/26/20 History [Yesenia-Mox Antacid-Antigas] ammonium lactate 1 appl TOPICAL BID PRN 09/27/20 10/09/20 09/26/20 History baclofen 10 mg PO TID 09/27/20 10/09/20 10/08/20 History benzocaine 3 mg PO Q2H PRN 09/27/20 09/27/20 09/26/20 History bisacodyl 10 mg [place] DAILY PRN 09/27/20 10/09/20 09/26/20 History bupropion HCl [Wellbutrin XL] 300 mg PO QAM 09/27/20 10/09/20 10/08/20 History cholecalciferol (vitamin D3) 25 mcg PO DAILY 09/27/20 10/09/20 10/08/20 History cyclobenzaprine 10 mg PO TID 09/27/20 10/09/20 10/08/20 History diclofenac sodium 2 g TOPICAL Q6H PRN 09/27/20 10/09/20 09/26/20 History docusate sodium [Colace] 100 mg PO BID 09/27/20 10/09/20 10/08/20 History enoxaparin 40 mg SUBCUT DAILY 09/27/20 10/09/20 10/08/20 History fluticasone propionate 2 spray INTRANASAL DAILY 09/27/20 10/09/20 10/08/20 History hydrocortisone 1 appl TOPICAL Q8H PRN 09/27/20 10/09/20 09/26/20 History lorazepam 0.5 mg PO Q8H PRN 09/27/20 10/09/20 09/26/20 History magnesium citrate 150 ml PO DAILY PRN 09/27/20 10/09/20 09/26/20 History magnesium hydroxide [Milk of 30 ml PO DAILY PRN 09/27/20 10/09/20 09/26/20 History Magnesia] methadone 20 mg PO TID 09/27/20 10/09/20 10/08/20 History naloxone 4 mg INTRANASAL Q3M PRN 09/27/20 10/09/20 09/26/20 History ondansetron 4 mg PO Q4H PRN 09/27/20 10/09/20 09/26/20 History pantoprazole 40 mg PO DAILY 09/27/20 10/09/20 10/08/20 History polyethylene glycol 3350 [Miralax] 17 g PO BID 09/27/20 10/09/20 10/08/20 History sennosides 17.2 mg PO BID 09/27/20 10/09/20 10/08/20 History tizanidine [Zanaflex] 4 mg PO Q8H PRN 09/27/20 10/09/20 09/25/20 History zolpidem [Ambien] 5 mg PO BEDTIME PRN 09/27/20 10/09/20 10/08/20 History gabapentin 200 mg PO TID 09/28/20 10/09/20 10/08/20 History acetaminophen 650 mg PO Q4H PRN 10/09/20 10/09/20 Unknown History bisacodyl 5 mg PO BID 10/09/20 10/09/20 Unknown History guaifenesin 600 mg PO BID PRN 10/09/20 10/09/20 10/08/20 History lactulose 30 ml PO BID PRN 10/09/20 10/09/20 Unknown History Physical Exam Vital Signs: Vital Signs: Last Vital Signs Temp 97.4 F 09/27/20 19:27 Pulse 95 09/27/20 19:27 Resp 18 09/27/20 19:27 BP 112/55 L 09/27/20 19:27 Pulse Ox 97 09/27/20 19:27 Body Mass Index 31.6 Const: General: cooperative and no acute distress HENMT: Head: Yes normal to inspection Face and sinus: Yes normal facial exam Mouth: Normal oral and palatal mucosa present Throat: Yes posterior oropharynx normal Eyes: General: appearance normal, both eyes and all related structures Neck: Other: discomfort moving neck forward Neck: Yes normal visual inspection Resp: Effort & Inspection: normal respiratory effort Cardio: Rate: regular rate Rhythm: regular rhythm GI: Palpation (GI): Soft to palpation and nontender Back/Spine/Pelvis: Other: pain C spine Skin: General skin exam: no rashes or lesions noted Extrem: General: Yes normal to inspection Results Labs CBC & Chem 7: 09/29/20 06:23 09/27/20 05:29 Labs: Short CBC 09/27/20 Range/Units 05:30 WBC 11.7 H (4.8-10.8) X10*3/uL Hgb 11.0 L D (12.0-16.0) g/dl Hct 33.6 L D (37-47) % Plt Count 488 H (160-400) X10*3/uL BMP 09/27/20 05:29 Sodium 137 Potassium 4.0 Chloride 104 Carbon Dioxide 22 BUN 12 Creatinine 0.57 Calcium 9.2 D Cardiac Enzymes 09/26/20 Range/Units 17:02 Total Creatine Kinase 74 (26-140) U/L Urine 09/27/20 Range/Units 15:23 Urine Color YELLOW Urine Appearance CLEAR Urine pH 6.0 (5.0-8.0) Ur Specific [place] 1.010 (1.005-1.025) Urine Protein NEG (NEG-TRACE) MG/DL Urine Glucose (UA) NEG (NEG) MG/DL Assessment and Plan (1) Quadriparesis: (2) Osteomyelitis: Qualifiers: Osteomyelitis location: unspecified site Osteomyelitis type: unspecified type Qualified Code(s): M86.9 - Osteomyelitis, unspecified Problem details: likely chronic Continue antibiotics at this time,possible new organism and stop antibiotics if blood culture /possible LP negative Would consider LP evaluate any possible meningitis/MRI brain with contrast Po Diflucan treat fungus 4-6 weeks Would see if interested in opioid use disorder treatment as mother says used heroin last in May per [facility] [place] and patient declined intervention at that time (3) Headache: Qualifiers: Headache chronicity pattern: acute headache Headache type: unspecified Intractability: intractable Qualified Code(s): R51.9 - Headache, unspecified (4) Cervical discitis:
[2020-09-27 23:54] VITALS: BP 118/55; PULSE 104; RESP 18; TEMP 36.9; O2SAT 97
[2020-09-28 00:18] LABS: Vancomycin Trough 20.2 mcg/mL (10.0-20.0)
[2020-09-28] MEDS: vancomycin HCL 1,000 MG in 0.9 % Sodium Chloride 250 ML 270 MG IV ×3 (01:21→13:41)
[2020-09-28] MEDS: LORazepam 0.5 MG TABLET PO ×2 (01:21→22:21)
[2020-09-28] MEDS: Enoxaparin Sodium 40 MG/0.4 ML SYRINGE SUBCUT (01:21)
[2020-09-28] MEDS: 0.9 % Sodium Chloride Flush 3 ML SYRINGE IVFLUSH ×3 (01:23→23:47)
[2020-09-28] MEDS: Piperacillin Sodium/Tazobactam 3.375 GM in 0.9 % Sodium Chloride 50 ML IV ×2 (03:49→10:57)
[2020-09-28 03:50] VITALS: BP 118/50; PULSE 110; RESP 18; TEMP 36.3; O2SAT 99
[2020-09-28 07:16] VITALS: BP 128/69; PULSE 119; RESP 20; TEMP 35.5; O2SAT 95
[2020-09-28] MEDS: Acetaminophen 325 MG TABLET 650 MG PO (07:36)
[2020-09-28] MEDS: Baclofen 10 MG TABLET PO ×4 (08:18→20:38)
[2020-09-28] MEDS: Docusate Sodium 100 MG CAPSULE PO ×2 (08:18→20:39)
[2020-09-28] MEDS: Cholecalciferol (Vitamin D3) 25 MCG TABLET PO (08:19)
[2020-09-28] MEDS: Fluconazole 100 MG TABLET 200 MG PO ×2 (08:19→20:39)
[2020-09-28] MEDS: methADONE HCl 10 MG TABLET 20 MG PO ×3 (08:19→20:39)
[2020-09-28] MEDS: Cyclobenzaprine HCl 10 MG TABLET PO ×4 (08:19→20:38)
[2020-09-28] MEDS: Gabapentin 100 MG CAPSULE 200 MG PO ×2 (08:19→13:40)
[2020-09-28] MEDS: polyethylene glycoL 3350 17 GM POWD.PACK PO (08:20)
[2020-09-28] MEDS: buPROPion HCl XL 300 MG TAB.ER.24H PO (08:20)
[2020-09-28] MEDS: Fluticasone Propionate Nasal 16 GM SPRAY 2 SPRAY NOSTRIL-B (10:57)
[2020-09-28] MEDS: 0.9 % Sodium Chloride 1,000 ML 100 ML IVCONT (10:59)
[2020-09-28 11:15] VITALS: BP 145/58; PULSE 65; RESP 18; TEMP 36.6; O2SAT 95
--- NOTE | 2020-09-28 12:59 | MHC.CLN ---
F/U PO INTAKE 75-100% DIET RX: REGULAR-APPROPRIATE PT RECEIVING PROSOURCE BID AND HARDIK TO PROMOTE WOUND HEALING FOLLOWING
--- NOTE | 2020-09-28 13:25 | MHC.CM.PN ---
DP RETURN TO [facility] VIA bls. CM WILL FOLLOW.
--- NOTE | 2020-09-28 15:47 | P.PNIM_ITS ---
Subjective Subjective Date of Service: 09/28/20 Interval History: Patient denies headache, she has chronic persistent neck discomfort, denies neck stiffness, denies fever or chills, no acute issues since admission patient has poor IV access. 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 Pulmonary: Normal breath sounds, no acute respiratory distress. CVS: Normal S1-S2 Abdomen: Soft, Nontender, bowel sounds audible Extremities: Decreased sensation bilateral lower extremities but able to flex knees, ulcers on both feet and heels appears to be healing with no granulation tissue or drainage Chronic indwelling Martinez in place. Neuro: Alert and awake. Quadriplegic, able to move both upper extremities. Objective Data Current Medications Generic Name Dose Route Start Last Admin Trade Name Freq PRN Reason Stop Dose Admin Acetaminophen 650 mg 09/26/20 23:15 09/28/20 07:36 Acetaminophen 325 Mg Tablet PO 650 mg Q6H PRN Administration Pain, Mild (Pain Scale 1-3) Baclofen 10 mg 09/28/20 13:30 09/28/20 13:45 Baclofen 10 Mg Tablet PO 10 mg TID@0900,1300,2100 EILDIA Administration Bisacodyl 10 mg 09/27/20 02:13 Bisacodyl 10 Mg Supp.Rect [place] DAILY PRN Constipation Bupropion HCl 300 mg 09/27/20 02:15 09/28/20 08:20 Bupropion Hcl Xl 300 Mg Tab.Er.24h PO 300 mg DAILY ELIDIA Administration Cyclobenzaprine HCl 5 mg 09/27/20 01:24 09/27/20 03:00 Cyclobenzaprine Hcl 5 Mg Tablet PO 5 mg BEDTIME PRN Administration spasm Cyclobenzaprine HCl 10 mg 09/28/20 13:30 09/28/20 13:47 Cyclobenzaprine Hcl 10 Mg Tablet PO 10 mg TID@0900,1300,2100 ELIDIA Administration Diphenhydramine HCl 25 mg 09/27/20 02:13 Diphenhydramine Hcl 25 Mg Tablet PO Q6H PRN Itching Docusate Sodium 100 mg 09/27/20 09:00 09/28/20 08:18 Docusate Sodium 100 Mg Capsule PO 100 mg BID ELIDIA Administration Fluconazole 200 mg 09/28/20 09:00 09/28/20 08:19 Fluconazole 100 Mg Tablet PO 200 mg DAILY ELIDIA Administration Fluticasone Propionate 2 spray 09/27/20 09:00 09/28/20 10:57 Fluticasone Propionate Nasal 16 Gm [place] NOSTRIL-B 2 spray DAILY ELIDIA Administration Gabapentin 200 mg 09/29/20 13:31 Gabapentin 100 Mg Capsule PO TID@0900,1300,2100 ELIDIA Lorazepam 0.5 mg 09/27/20 02:13 09/28/20 01:21 Lorazepam 0.5 Mg Tablet PO 0.5 mg Q8H PRN Administration Anxiety Magnesium Hydroxide 30 ml 09/27/20 02:13 Milk Of Magnesia 30 Ml Oral.Susp PO DAILY PRN Constipation Methadone HCl 20 mg 09/28/20 21:00 Methadone Hcl 10 Mg Tablet PO TID@0900,1300,2100 ELIDIA Naloxone HCl 4 mg 09/27/20 02:13 Naloxone Hcl Nasal 4 Mg [place] NOSTRILALT Q3M PRN Opioid Overdose Pharmacy Consult 1 each 09/26/20 23:18 Consult Rx Vancomycin Dosing MISCELLANE DAILY PRN Consult order Polyethylene Glycol 17 gm 09/27/20 09:00 09/28/20 08:20 Polyethylene Glycol 3350 17 Gm Powd.Pack PO 17 gm DAILY ELIDIA Administration Sodium Biphosphate/Sodium Phosphate 133 ml 09/27/20 02:13 Sodium Phosphate,[place]-Dibasic 133 Ml Enema [place] DAILY PRN Constipation Sodium Chloride 3 ml 09/27/20 00:00 09/28/20 08:20 0.9 % Sodium Chloride Flush 3 Ml Syringe IVFLUSH 3 ml QSHIFT [facility] Administration Tizanidine HCl 4 mg 09/27/20 02:13 09/27/20 17:03 Tizanidine Hcl 4 Mg Tablet PO 4 mg Q8H PRN Administration Spasms Vitamin D 25 mcg 09/27/20 09:00 09/28/20 08:19 Cholecalciferol (Vitamin D3) 25 Mcg Tablet PO 25 mcg DAILY ELIDIA Administration Zolpidem Tartrate 5 mg 09/27/20 02:13 09/27/20 22:43 Zolpidem Tartrate 5 Mg Tablet PO 5 mg BEDTIME PRN Administration sleep Labs CBC & Chem 7: 09/27/20 05:30 09/27/20 05:29 Microbiology Microbiology Results: Microbiology 09/27/20 10:31 Blood - Venous Blood Culture - Preliminary No growth after 24 hours. 09/27/20 10:31 Blood - Venous Blood Culture - Preliminary No growth after 24 hours. 09/27/20 15:47 Urine clean catch - Clean Catch Midstream Urine Culture - Final No growth. Assessment and Plan (1) Quadriparesis: Status: Acute (2) Osteomyelitis: Problem details: There is likely muscle spasm and chronic problem without acute infection or possible,but less likely with unremarkable WBC and no fever or sepsis recurrent MSSA bacteremia/osteomyelitis MRI Cspine exam looks chronic with changes c/w old osteomyelitis Also possible meningitis but less likely Some [place] albicans also found on final culture at [facility] from abscess and I dont believe it was treated Status: Acute (3) Elevated troponin: Status: Acute (4) Headache: Status: Acute (5) Cervical discitis: Status: Acute Assessment and Plan: 40-year-old female with a past medical history of anxiety, depression, PTSD, history of migraines, history of C5 spinal abscess and subsequent quadriplegia currently care home resident; presented to the hospital with a chief complaint of headache. Headache: Resolved, as per patient this headache was different than her typical migraine headache that she has not had for a long time, patient had no nausea, no vomiting, felt hot with episode of headache but on examination the nurses found her extremities to be cold, no recurrent symptoms of headache since admit Sepsis/C5-C7 diskitis/osteomyelitis : Patient felt to have sepsis due to tachycardia and leukocytosis, MRI C-spine showed enhancement of the C5-C7 vertebral bodies with prevertebral soft tissue edema/enhancement. Findings were suspicious for a discitis-osteomyelitis complex from C5-C7. No discrete drainable fluid collection was demonstrated. Therefore patient was placed on IV Vanco and IV Zosyn however patient blood cultures came back negative, urine culture negative, today MRI brain showed no acute abnormality case discussed with Dr. Leatha Ramirez she recommend to discontinue antibiotics, patient has no worsening of her baseline Neck discomfort. Tachycardia and leukocytosis likely were reactive and not related to sepsis. Follow CBC at am due to drop in hematocrit. Patient with history of C5 spinal abscess was treated at [facility] in May of 2020, obtained old records patient finished course of antibiotic on July 28. Dr. Ramirez recommend to treat patient with doxycycline 100 mg b.i.d. if blood cultures growing MSSA from [facility] were sensitive to doxy since she feels patient did not finish full course of antibiotic for osteomyelitis and she also recommend Diflucan 200 mg daily for 4 weeks Since her blood cultures at [facility] grew [place], Dr. Ramirez will look in to [facility] records and order both these medications Continue chronic Martinez Troponins elevated: Patient denies any chest pain. EKG nonischemic. Initial troponin 21 bumped up to 68.6 repeat trending down to 50, case d/w Dr Tamiko woods, no acute coronary disease suspected, Echocardiogram showed normal left ventricular systolic function with EF 60-65% no valvular disease noted, no further cardiac intervention needed. History of quadriplegia: Chronic. Continue home medications gabapentin, baclofen, Flexeril, and methadone. Heel and foot ulcers: Pressure ulcer care per RN. Appears healing. Disposition to rehab facility in next 24 hours. DVT prophylaxis: Lovenox Code status patient wishes to be a full code therefore will change code status from DNR DNI to full code
[2020-09-28 15:53] VITALS: BP 107/54; PULSE 101; RESP 19; TEMP 37; O2SAT 98
--- NOTE | 2020-09-28 16:51 | PM.IDPN ---
Subjective Subjective Date of Service: 10/11/20 Interval History: she has some neck discomfort and headache receding Objective Data Labs CBC & Chem 7: 09/29/20 06:23 09/27/20 05:29 Labs: Laboratory Results - last 24 hr 09/27/20 23:21 Vancomycin Trough 20.2 H Microbiology Microbiology Results: Microbiology 09/27/20 10:31 Blood - Venous Blood Culture - Preliminary No growth after 24 hours. 09/27/20 10:31 Blood - Venous Blood Culture - Preliminary No growth after 24 hours. 09/27/20 15:47 Urine clean catch - Clean Catch Midstream Urine Culture - Final No growth. Physical Exam Vital Signs: Vital Signs: Last Vital Signs Temp 98.6 F 09/28/20 15:53 Pulse 101 H 09/28/20 15:53 Resp 19 09/28/20 15:53 BP 107/54 L 09/28/20 15:53 Pulse Ox 98 09/28/20 15:53 Body Mass Index 31.6 Const: General: cooperative HENMT: Head: Yes normal to inspection Mouth: Normal oral and palatal mucosa present Eyes: General: appearance normal, both eyes and all related structures Resp: Effort & Inspection: normal respiratory effort Cardio: Rate: regular rate Rhythm: regular rhythm GI: Palpation (GI): Soft to palpation and nontender Neuro: Other: can move right hand weakly Assessment and Plan Assessment and plan (1) Quadriparesis: (2) Osteomyelitis: Problem details: likely chronic (3) Headache: Time Spent With Patient Time: Total time spent is greater than 50% in coordination of care (as documented) at patient's floor/unit and/or counseling patient: Time with patient: 15 - 24 minutes
[2020-09-28] MEDS: Doxycycline Hyclate 100 MG in 0.9 % Sodium Chloride 250 ML 166.67 MG IV (17:24)
[2020-09-28 19:35] VITALS: BP 125/67; PULSE 93; RESP 19; TEMP 36.2; O2SAT 100
[2020-09-28] MEDS: Zolpidem Tartrate 5 MG TABLET PO (20:42)
[2020-09-28 23:42] VITALS: BP 128/70; PULSE 88; RESP 16; TEMP 37.2; O2SAT 99
[2020-09-29 03:54] VITALS: BP 107/59; PULSE 98; RESP 15; TEMP 36.8; O2SAT 96
[2020-09-29] MEDS: Doxycycline Hyclate 100 MG in 0.9 % Sodium Chloride 250 ML 166.67 MG IV (05:37)
[2020-09-29 07:04] LABS: MANUAL DIFF FLAG NO
[2020-09-29 07:17] LABS: Basophils Percent Auto 0.3 % (0-2); Eosinophils Absolute Auto 0.3 X10*3/uL (0.0-0.4); Eosinophils Percent Auto 3.9 % (0-4); Hematocrit 34.8 % (37-47); Hemoglobin 11.2 g/dl (12.0-16.0); Imm Gran Abs Auto 0.04 X10*3/uL (0.00-0.03); Imm Gran Pct Auto 0.5 % (0.0-0.4); Lymphocytes Absolute Auto 2.7 X10*3/uL (1.2-4.9); Lymphocytes Percent Auto 34.5 % (20-40); Mean Corpuscular HGB Conc 32.2 g/dl (31.0-35.0); Mean Corpuscular Hemoglobin 28.5 pg (27.0-33.0); Mean Corpuscular Volume 88.5 fL (80-98); Mean Platelet Volume 8.6 fL (9.4-12.3); Monocytes Absolute Auto 0.5 X10*3/uL (0.1-1.2); Monocytes Percent Auto 6.7 % (2-11); Neutrophils Absolute Auto 4.2 X10*3/uL (2.0-8.3); Neutrophils Percent Auto 54.1 % (45-73); Platelet Count 429 X10*3/uL (160-400); Red Blood Count 3.93 X10*6/uL (4.20-5.50); White Blood Count 7.8 X10*3/uL (4.8-10.8)
[2020-09-29 07:46] LABS: Alanine Aminotransferase 11 U/L (0-31); Albumin Level 3.4 g/dL (3.5-5.0); Alkaline Phosphatase 68 U/L (39-117); Aspartate Amino Transferase 10 U/L (5-31); Total Protein 6.8 g/dL (6.5-8.0)
[2020-09-29 08:00] VITALS: BP 123/66; PULSE 110; RESP 16; TEMP 36.4; O2SAT 98
[2020-09-29 08:07] LABS: Bilirubin Direct < 0.2 mg/dL (0.0-0.5); Bilirubin Total 0.2 mg/dL (0.0-1.0)
[2020-09-29] MEDS: polyethylene glycoL 3350 17 GM POWD.PACK PO (08:37)
[2020-09-29] MEDS: Cyclobenzaprine HCl 10 MG TABLET PO ×2 (08:38→13:00)
[2020-09-29] MEDS: Docusate Sodium 100 MG CAPSULE PO (08:38)
[2020-09-29] MEDS: buPROPion HCl XL 300 MG TAB.ER.24H PO (08:39)
[2020-09-29] MEDS: methADONE HCl 10 MG TABLET 20 MG PO ×2 (08:39→12:58)
[2020-09-29] MEDS: Fluconazole 100 MG TABLET 200 MG PO (08:39)
[2020-09-29] MEDS: Cholecalciferol (Vitamin D3) 25 MCG TABLET PO (08:39)
[2020-09-29] MEDS: Baclofen 10 MG TABLET PO ×2 (08:39→13:01)
[2020-09-29] MEDS: TiZANidine HCL 4 MG TABLET PO (08:45)
[2020-09-29] MEDS: 0.9 % Sodium Chloride Flush 3 ML SYRINGE IVFLUSH (09:49)
[2020-09-29] MEDS: Fluticasone Propionate Nasal 16 GM SPRAY 2 SPRAY NOSTRIL-B (09:50)
--- NOTE | 2020-09-29 11:07 | MHC.CM.PN ---
CM met with pt to discuss DC. Pt confirms she is a LTC resident at [facility]. Pt does have a HCP on file that was completed during this admission but declines to have CM inform them of DC. DC plan is return to [facility] via S
[2020-09-29 12:00] VITALS: BP 116/61; PULSE 94; RESP 18; TEMP 36.7; O2SAT 98
--- NOTE | 2020-09-29 12:06 | HO.PM.IMPN ---
Subjective Subjective Date of Service: 09/29/20 Physical Exam Vital Signs: Vital Signs: Last Vital Signs Temp 97.6 F 09/29/20 08:00 Pulse 110 H 09/29/20 08:00 Resp 16 09/29/20 08:00 BP 123/66 09/29/20 08:00 Pulse Ox 98 09/29/20 08:00 Body Mass Index 31.6 Const: Other: General: Resting comfortably, awake alert answering questions appropriately, no acute distress Neck: Restricted range of motion due to pain, no swelling or redness noted. Pulmonary: Normal breath sounds, no acute respiratory distress. CVS: Normal S1-S2 Abdomen: Soft, Nontender, bowel sounds audible Extremities: Decreased sensation bilateral lower extremities but able to flex knees, ulcers on both feet and heels appears to be healing, no drainage Chronic indwelling Martinez in place. Neuro: Alert and awake. Quadriplegic, able to move both upper extremities. Objective Data Current Medications Generic Name Dose Route Start Last Admin Trade Name Freq PRN Reason Stop Dose Admin Acetaminophen 650 mg 09/26/20 23:15 09/28/20 07:36 Acetaminophen 325 Mg Tablet PO 650 mg Q6H PRN Administration Pain, Mild (Pain Scale 1-3) Baclofen 10 mg 09/28/20 13:30 09/29/20 08:39 Baclofen 10 Mg Tablet PO 10 mg TID@0900,1300,2100 ELIDIA Administration Bisacodyl 10 mg 09/27/20 02:13 Bisacodyl 10 Mg Supp.Rect [place] DAILY PRN Constipation Bupropion HCl 300 mg 09/27/20 02:15 09/29/20 08:39 Bupropion Hcl Xl 300 Mg Tab.Er.24h PO 300 mg DAILY ELIDIA Administration Cyclobenzaprine HCl 5 mg 09/27/20 01:24 09/27/20 03:00 Cyclobenzaprine Hcl 5 Mg Tablet PO 5 mg BEDTIME PRN Administration spasm Cyclobenzaprine HCl 10 mg 09/28/20 13:30 09/29/20 08:38 Cyclobenzaprine Hcl 10 Mg Tablet PO 10 mg TID@0900,1300,2100 ELIDIA Administration Diphenhydramine HCl 25 mg 09/27/20 02:13 Diphenhydramine Hcl 25 Mg Tablet PO Q6H PRN Itching Docusate Sodium 100 mg 09/27/20 09:00 09/29/20 08:38 Docusate Sodium 100 Mg Capsule PO 100 mg BID ELIDIA Administration Fluconazole 200 mg 09/28/20 21:00 09/29/20 08:39 Fluconazole 100 Mg Tablet PO 200 mg BID ELIDIA Administration Fluticasone Propionate 2 spray 09/27/20 09:00 09/29/20 09:50 Fluticasone Propionate Nasal 16 Gm [place] NOSTRIL-B 2 spray DAILY ELIDIA Administration Gabapentin 200 mg 09/29/20 13:31 Gabapentin 100 Mg Capsule PO TID@0900,1300,2100 [facility] Doxycycline Hyclate 100 mg/ 250 mls @ 166.67 mls/hr 09/28/20 17:00 09/29/20 08:31 Sodium Chloride IV Infused Q12H [facility] Infusion Lorazepam 0.5 mg 09/27/20 02:13 09/28/20 22:21 Lorazepam 0.5 Mg Tablet PO 0.5 mg Q8H PRN Administration Anxiety Magnesium Hydroxide 30 ml 09/27/20 02:13 Milk Of Magnesia 30 Ml Oral.Susp PO DAILY PRN Constipation Methadone HCl 20 mg 09/28/20 21:00 09/29/20 08:39 Methadone Hcl 10 Mg Tablet PO 20 mg TID@0900,1300,2100 [facility] Administration Naloxone HCl 4 mg 09/27/20 02:13 Naloxone Hcl Nasal 4 Mg [place] NOSTRILALT Q3M PRN Opioid Overdose Pharmacy Consult 1 each 09/26/20 23:18 Consult Rx Vancomycin Dosing MISCELLANE DAILY PRN Consult order Polyethylene Glycol 17 gm 09/27/20 09:00 09/29/20 08:37 Polyethylene Glycol 3350 17 Gm Powd.Pack PO 17 gm DAILY ELIDIA Administration Sodium Biphosphate/Sodium Phosphate 133 ml 09/27/20 02:13 Sodium Phosphate,[place]-Dibasic 133 Ml Enema [place] DAILY PRN Constipation Sodium Chloride 3 ml 09/27/20 00:00 09/29/20 09:49 0.9 % Sodium Chloride Flush 3 Ml Syringe IVFLUSH 3 ml QSHIFT [facility] Administration Tizanidine HCl 4 mg 09/27/20 02:13 09/29/20 08:45 Tizanidine Hcl 4 Mg Tablet PO 4 mg Q8H PRN Administration Spasms Vitamin D 25 mcg 09/27/20 09:00 09/29/20 08:39 Cholecalciferol (Vitamin D3) 25 Mcg Tablet PO 25 mcg DAILY ELIDIA Administration Zolpidem Tartrate 5 mg 09/27/20 02:13 09/28/20 20:42 Zolpidem Tartrate 5 Mg Tablet PO 5 mg BEDTIME PRN Administration sleep Labs CBC & Chem 7: 09/29/20 06:23 09/27/20 05:29 Microbiology Microbiology Results: Microbiology 09/27/20 10:31 Blood - Venous Blood Culture - Preliminary No growth after 24 hours. 09/27/20 10:31 Blood - Venous Blood Culture - Preliminary No growth after 24 hours. 09/27/20 15:47 Urine clean catch - Clean Catch Midstream Urine Culture - Final No growth.
--- NOTE | 2020-09-29 12:16 | P.DS_ITS ---
DS: Providers Provider Date of Service: 09/29/20 Date of admission: 09/26/20 23:15 Primary care physician: Rui Montemayor MD Consults: 09/26/20 23:18 Consult to Infectious Diseases Routine Consulting Provider: Dena Ramirez Reason for consultation: discitis 09/27/20 01:55 Consult to Cardiology Stat Consulting Provider: Pierre Pineda Reason for consultation: high trops DS: Diagnosis Discharge Diagnosis (1) Sepsis: Status: Acute Problem details: Ruled out (2) Osteomyelitis: Status: Acute Problem details: likely chronic (3) Discitis: Status: Acute Problem details: likely chronic (4) Headache: Status: Acute DS: Medications Discharge Medications Home Medications: Home Medications Medication Instructions Recorded Confirmed COVID-19 vacc,mRNA([facility])(PF) 0.3 ml IM ONCE 09/27/20 09/27/20 Fleet Enema 118 ml TX DAILY PRN 09/27/20 09/27/20 acetaminophen 650 mg PO Q4H PRN 09/27/20 09/27/20 alum-mag hydroxide-simeth 30 ml PO QID PRN MDD 180 ml 09/27/20 09/27/20 [Yesenia-Mox Antacid-Antigas] ammonium lactate 1 appl TOPICAL BID 09/27/20 09/27/20 baclofen 10 mg PO TID 09/27/20 09/27/20 benzocaine 3 mg PO Q2H PRN 09/27/20 09/27/20 bisacodyl 10 mg TX DAILY PRN 09/27/20 09/27/20 bupropion HCl [Wellbutrin XL] 300 mg PO QAM 09/27/20 09/27/20 cholecalciferol (vitamin D3) 25 mcg PO DAILY 09/27/20 09/27/20 cyclobenzaprine 10 mg PO TID 09/27/20 09/27/20 diclofenac sodium 2 g TOPICAL Q6H PRN 09/27/20 09/27/20 diphenhydramine HCl 25 mg PO Q6H PRN 09/27/20 09/27/20 docusate sodium [Colace] 100 mg PO BID 09/27/20 09/27/20 enoxaparin 40 mg SUBCUT DAILY 09/27/20 09/27/20 fluticasone propionate 2 spray INTRANASAL DAILY 09/27/20 09/27/20 hydrocortisone 1 appl TOPICAL Q8H PRN 09/27/20 09/27/20 lorazepam 0.5 mg PO Q8H PRN 09/27/20 09/27/20 magnesium citrate 150 ml PO DAILY PRN 09/27/20 09/27/20 magnesium hydroxide [Milk of 30 ml PO DAILY PRN 09/27/20 09/27/20 Magnesia] methadone 20 mg PO TID 09/27/20 09/27/20 naloxone 4 mg INTRANASAL Q3M PRN 09/27/20 09/27/20 ondansetron 4 mg PO Q4H PRN 09/27/20 09/27/20 pantoprazole 40 mg PO DAILY 09/27/20 09/27/20 polyethylene glycol 3350 [Miralax] 17 g PO DAILY 09/27/20 09/27/20 sennosides 17.2 mg PO BID 09/27/20 09/27/20 tizanidine [Zanaflex] 4 mg PO Q8H PRN 09/27/20 09/27/20 tuberculin PPD 1 tb unit INTRADERMAL ONCE 09/27/20 09/27/20 zolpidem [Ambien] 5 mg PO BEDTIME PRN 09/27/20 09/27/20 gabapentin 200 mg PO TID 09/28/20 09/28/20 Previous Rx's Medication Instructions Recorded doxycycline hyclate 100 mg PO BID #60 cap 09/29/20 fluconazole 200 mg PO BID #60 tab 09/29/20 DS: Summary Hospital Course Hospital Course: Patient presented with headaches and upon arrival to the ED met SIRS criteria with tachycardia and leukocytosis. Due to her history of prior MRSA bacteremia/osteo/diskitis there was concern for sepsis and she was started on broad-spectrum IV antibiotics. She underwent imaging with MRI and ID evaluation. Putting together her clinical picture with ID and [place] obtained [place] [facility] it was suspected that her MR findings were likely chronic in nature. She remained a. febrile and her blood cultures remained negative at 48 hours. Her headache/neck pain resolved on its own. [facility] [place] indicated that the patient was to complete her IV antibiotic course on the July 30. These records were further reviewed by ID who recommended to treat the patient with PO Doxycycline (for possibly incomplete course of IV antibiotics - patient reported discontinuation of antibiotics 1 week early ??) and Diflucan (cx reportedly grew [place] from [facility]) for 30 to 60 days and to follow up with [facility] ID within 1 week to decide further course of treatment. Patient will be discharged back to SNF to continue her care. She NEEDS to follow up with [facility] Infectious Disease within 1 week to decide further Rx. Time Spent with Patient Time attestation: Total time spent providing and/or coordinating discharge services: Discharge coordination time: Greater than 30 minutes Physical Exam Vital Signs: Vital Signs: Last Vital Signs Temp 97.6 F 09/29/20 08:00 Pulse 110 H 09/29/20 08:00 Resp 16 09/29/20 08:00 BP 123/66 09/29/20 08:00 Pulse Ox 98 09/29/20 08:00 Body Mass Index 31.6 Const: Other: General: Resting comfortably, awake alert answering questions appropriately, no acute distress Neck: Restricted range of motion due to pain, no swelling or redness noted. Pulmonary: Normal breath sounds, no acute respiratory distress. CVS: Normal S1-S2 Abdomen: Soft, Nontender, bowel sounds audible Extremities: Decreased sensation bilateral lower extremities but able to flex knees, ulcers on both feet and heels appears to be healing, no drainage Chronic indwelling Martinez in place. Neuro: Alert and awake. Quadriplegic, able to move both upper extremities. DS: Data Data Completed and Pending Labs on day of discharge: Laboratory Results - last 24 hr 09/29/20 09/29/20 06:23 06:23 WBC 7.8 RBC 3.93 L Hgb 11.2 L Hct 34.8 L MCV 88.5 MCH 28.5 MCHC 32.2 RDW 12.0 Plt Count 429 H MPV 8.6 L Immature Gran % (Auto) 0.5 H Neut % (Auto) 54.1 Lymph % (Auto) 34.5 Beckham % (Auto) 6.7 Eos % (Auto) 3.9 Baso % (Auto) 0.3 Lymph # (Auto) 2.7 Beckham # (Auto) 0.5 Eos # (Auto) 0.3 Baso # (Auto) 0.0 Abs Immat Gran (auto) 0.04 H Absolute Neuts (auto) 4.2 Absolute Nucleated RBC 0.000 Nucleated RBC % (auto) 0.0 Total Bilirubin 0.2 Direct Bilirubin < 0.2 AST 10 ALT 11 Alkaline Phosphatase 68 Total Protein 6.8 Albumin 3.4 L Preliminary micro results at discharge 09/27/20 10:31 Blood Culture - Preliminary Blood - Venous No growth after 24 hours. 09/27/20 10:31 Blood Culture - Preliminary Blood - Venous No growth after 24 hours. Imaging MRI Brain: Radiologist's impression: IMPRESSION: There is advanced multilevel degenerative spondylosis of the cervical spine that is partially included within the previous examination. Otherwise unremarkable examination. No evidence of acute territorial infarct or hemorrhage. No abnormal intracranial mass or enhancement. Cervical Spine MRI: Radiologist's impression: IMPRESSION: Exam is partially limited by motion. Within this limitation, there appears to be erosive/destructive change of the anterior C6-C7 vertebral bodies. Enhancement of the C5-C7 vertebral bodies with prevertebral soft tissue edema/enhancement. Findings are suspicious for a discitis-osteomyelitis complex from C5-C7. No discrete drainable fluid collection demonstrated. Moderate multilevel degenerative spondyloarthropathy of the cervical spine. Most notably, there appears to be mild to moderate spinal canal stenoses from C3-C6. Moderate neural foraminal stenoses at C4-C5 and C5-C6. Moderate T2 signal throughout the spinal cord from C5-C7 suggestive of chronic myelomalacia. No abnormal enhancement within the spinal cord at this time. No demonstrated epidural collection. Discharge Plan Discharge Patient Disposition: er SNF Referrals: [facility] [Outside] Rui Montemayor MD [Primary Care Provider] - Discharge Medications: New doxycycline hyclate 100 mg capsule 100 mg PO BID Qty: 60 RF: 0 fluconazole 200 mg tablet 200 mg PO BID Qty: 60 RF: 0 Continued cyclobenzaprine 10 mg Tablet 10 mg PO TID RF: 0 tuberculin PPD 5 tub. unit /0.1 mL Solution 1 tb unit INTRADERMAL ONCE RF: 0 ammonium lactate 12 % Lotion 1 appl TOPICAL BID RF: 0 polyethylene glycol 3350 [Miralax] 17 gram Powder In Packet 17 g PO DAILY RF: 0 tizanidine [Zanaflex] 4 mg Tablet 4 mg PO Q8H PRN (Reason: Spasms) RF: 0 acetaminophen 650 mg Tablet 650 mg PO Q4H PRN (Reason: Pain) RF: 0 lorazepam 0.5 mg Tablet 0.5 mg PO Q8H PRN (Reason: Anxiety) RF: 0 magnesium hydroxide [Milk of Magnesia] 400 mg/5 mL Suspension 30 ml PO DAILY PRN (Reason: Constipation) RF: 0 baclofen 10 mg Tablet 10 mg PO TID RF: 0 hydrocortisone 1 % Cream 1 appl TOPICAL Q8H PRN (Reason: Itching) RF: 0 bisacodyl 10 mg Suppository 10 mg TX DAILY PRN (Reason: Constipation) RF: 0 pantoprazole 40 mg Tablet,Delayed Release (Dr/Ec) 40 mg PO DAILY RF: 0 diphenhydramine HCl 25 mg Tablet 25 mg PO Q6H PRN (Reason: Itching) RF: 0 Fleet Enema 19-7 gram/118 mL Enema 118 ml TX DAILY PRN (Reason: Constipation) RF: 0 docusate sodium [Colace] 100 mg Capsule 100 mg PO BID RF: 0 magnesium citrate Solution 150 ml PO DAILY PRN (Reason: constipation) RF: 0 zolpidem [Ambien] 5 mg Tablet 5 mg PO BEDTIME PRN (Reason: sleep) RF: 0 methadone 10 mg/mL Concentrate 20 mg PO TID RF: 0 alum-mag hydroxide-simeth [Yesenia-Mox Antacid-Antigas] 200-200-20 mg/5 mL Suspension 30 ml PO QID MDD 180 ml PRN (Reason: Indigestion) RF: 0 ondansetron 4 mg Tablet,Disintegrating 4 mg PO Q4H PRN (Reason: Nausea And Vomiting) RF: 0 fluticasone propionate 50 mcg/actuation [place],Suspension 2 spray INTRANASAL DAILY RF: 0 enoxaparin 40 mg/0.4 mL Syringe 40 mg SUBCUT DAILY RF: 0 bupropion HCl [Wellbutrin XL] 300 mg Tablet Extended Release 24 Hr 300 mg PO QAM RF: 0 sennosides 17.2 mg Tablet 17.2 mg PO BID RF: 0 cholecalciferol (vitamin D3) 25 mcg (1,000 unit) Tablet 25 mcg PO DAILY RF: 0 diclofenac sodium 1 % Gel 2 g TOPICAL Q6H PRN (Reason: Pain) RF: 0 benzocaine 3 mg Lozenge 3 mg PO Q2H PRN (Reason: Sore Throat) RF: 0 naloxone 4 mg/actuation [place],Non-Aerosol 4 mg INTRANASAL Q3M PRN (Reason: Opioid Overdose) RF: 0 COVID-19 vacc,mRNA(Pfizer)(PF) 30 mcg/0.3 mL Suspension For Reconstitution 0.3 ml IM ONCE RF: 0 gabapentin 100 mg Capsule 200 mg PO TID RF: 0 Discharge Orders: Discharge Order (Routine); Ordered 09/29/20 Ordered By: Feroz Pang Diet: advance to usual diet Activity on Discharge: As tolerated Stand Alone Forms: Patient Portal Discharge page Care Plan Goals: To stay healthy and out of the hospital. Health Concerns: Possible Disciits / Osteo Plan of Treatment: Take Doxycycline and Diflucan for 30 more days at least. This may be expending pending your follow up with ID at [facility]. You need to follow up with ID at [facility].
[2020-09-29] MEDS: Gabapentin 100 MG CAPSULE 200 MG PO (13:00)
[2020-09-29 14:38] LABS: Vancomycin Trough < 3.0 mcg/mL (10.0-20.0)
[2020-09-29 15:23] VITALS: BP 110/63; PULSE 92; RESP 18; TEMP 36.6; O2SAT 98
[2020-10-01 15:25] LABS: Prothrombin Time Whole Bld POC 13.6 sec (11.1-13.5); ~PT, ~INR - Anti Coag Clinic 1.1 (0.9-1.1)
== END 2020-09-29 17:35 | disposition skilled nursing facility (03) | DRG 720 ==
LOC: HO.ED 20:12 → HO.IMC 23:43
PROVIDERS: Emergency Medicine; Hospitalist; Internal Medicine; Admitting Provider Hospitalist; Emergency Provider Emergency Medicine; PCP Internal Medicine; Visit Provider Family Medicine
DX: A41.9 Sepsis, unspecified organism (principal); G82.50 Quadriplegia, unspecified; M46.42 Discitis, unspecified, cervical region; M46.22 Osteomyelitis of vertebra, cervical region; F11.20 Opioid dependence, uncomplicated; F43.10 Post-traumatic stress disorder, unspecified; G43.909 Migraine, unspecified, not intractable, without status migrainosus; F17.210 Nicotine dependence, cigarettes, uncomplicated; Z71.6 Tobacco abuse counseling; Z20.822 Contact with and (suspected) exposure to COVID-19; Z79.899 Other long term (current) drug therapy
CPT/HCPCS: 36415; 70450; 70553; 71045; 72156; 80048; 80076; 80202; 81001; 81003; 82550; 82947; 84484; 85025; 85610; 87040; 87086; 87635; 93005; 93306; 96365; 96368; 96375; 99285; A9585; J1170; J1650; J2060; J2543; J3370

== ENCOUNTER 2020-10-09 01:57 | Inpatient (IN) | payer MEDICAID, SELFPAY ==
--- NOTE | ~2020-10-09 | US_ITS ---
EXAMINATION: ULTRASOUND LOWER EXTREMITY ARTERIAL DOPPLER, BILATERAL CLINICAL INFORMATION: Swelling and discoloration of lower extremities COMPARISON: None TECHNIQUE: Dynamic, real-time color Doppler sonographic evaluation of the lower extremity arterial vasculature was performed with spectral analysis FINDINGS: RIGHT (PSV/Waveform): * PFA: 65 cm/s, biphasic * PROGRAM DIR: 128 cm/s, triphasic * Proximal SFA: 91 cm/s, triphasic * Mid SFA: 96 cm/s, triphasic * Distal SFA: 84 cm/s, triphasic * Popliteal: 70 cm/s, triphasic * HULL OUTFIT SUPERVISOR: 30 cm/s, triphasic LEFT (PSV/Waveform): * PFA: 88 cm/s, triphasic * PROGRAM DIR: 143 cm/s, biphasic * Proximal: 125 cm/s, biphasic * Mid SFA: 139 cm/s, biphasic * Distal SFA: 136 cm/s, biphasic * Popliteal: 86 cm/s, biphasic * HULL OUTFIT SUPERVISOR: 107 cm/s, biphasic US/US arterial duplex LE BI IMPRESSION: * No high-grade stenosis or focal occlusion within either lower extremity arterial vasculature.. * Mild stenosis within the RIGHT common femoral artery. * Remainder of the RIGHT lower extremity arterial vasculature widely patent. * Mild stenosis present throughout the LEFT lower extremity arterial vasculature.
--- NOTE | ~2020-10-09 | US_ITS ---
EXAMINATION: US VENOUS ULTRASOUND WITH DOPPLER LOWER EXTREMITY, BILATERAL CLINICAL INFORMATION: Swelling and discoloration COMPARISON: None TECHNIQUE: Ultrasound of the deep veins is performed from the hip to the calf with compression sonography and color and pulse Doppler assessment. Spectral analysis with color-flow imaging is performed. FINDINGS: RIGHT: There is normal venous compression and respiratory variation and augmented flow. The visualized common femoral vein, superficial femoral vein, profunda femoral vein, popliteal vein, and the trifurcation region shows no evidence of deep venous thrombosis. There is no significant popliteal fossa cyst. LEFT: There is normal venous compression and respiratory variation and augmented flow. The visualized common femoral vein, superficial femoral vein, profunda femoral vein, popliteal vein, and the trifurcation region shows no evidence of deep venous thrombosis. There is no significant popliteal fossa cyst. If the patient's symptoms persist, followup ultrasound in 5 days 7 days might be of value to exclude proximal propagation from a non-visualized calf vein. US/US venous duplex LE BI IMPRESSION: No DVT demonstrated in the bilateral lower extremities.
--- NOTE | ~2020-10-09 | XR_ITS ---
EXAMINATION: XR FOOT, LEFT CLINICAL INFORMATION: Question osteomyelitis COMPARISON: None TECHNIQUE: AP, lateral, and oblique views of the left foot. FINDINGS: There is extensive patchy osteopenia. No fracture or dislocation. Normal mineralization and alignment. No cortical destruction or periostitis. XR/XR foot LT min 3V IMPRESSION: No cortical destruction or periostitis to strongly suggest a site of osteomyelitis. There is fairly extensive patchy osteopenia, unusual for the patient's age. 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 Other etiologies such as reflex sympathetic dystrophy could be considered in the appropriate clinical setting.
--- NOTE | ~2020-10-09 | XR_ITS ---
EXAMINATION: XR CHEST CLINICAL INFORMATION: Fever. COMPARISON: Chest radiograph dated 09/26/2020. TECHNIQUE: Frontal view of the chest was obtained. FINDINGS: The lungs are clear. The cardiomediastinal silhouette is normal in size. There is no pleural effusion or pneumothorax. No acute osseous abnormality. XR/XR chest 1V IMPRESSION: No acute cardiopulmonary findings.
[2020-10-09 02:05] VITALS: BP 110/53; BP 113/72; PULSE 75; RESP 16; TEMP 36.8; O2SAT 94; O2SAT 98; BMI 28.7
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
--- NOTE | 2020-10-09 04:06 | PC.NURSE ---
pt has disclosed to both this rn and dr reid that while she was at the [facility] she was overhearing 2 staff members state that they where going to ruff her up. These two staff members normally get off their shift at 2300 but hung around to wait for the pt to fall asleep. comments made she should be asleep by now . pt began to scream out and one staff member came and told her that there was no body in the room and that she must be hallusinating. Yes the staff was not in the room but duct around to the bathroom. Pt was screaming to get out for fear of harm to her. Pt sates she called to police on her own and the staff told them she was hallucinating. Pt states she was ok with this cause she knew this would get her out of the facillity. Earlier in the day the pt had to give a staff member her cell phone pass code, pt has banking information on her phone, as well as a large amount of money in a form of a check in the safe from the sale of her house. Other comments made during the day was pt was crying and they said just feed her a pizza and she will shut up. pt states the rosen are thin and when the staff in next door she can hear all the comments they have been making. pt is aox3 talking in full sentences, denies taking any other medications than the ones prescribed to her by the rn. Plan is to assess her labs and urine.
[2020-10-09 04:32] VITALS: BP 111/64; PULSE 84; RESP 18; TEMP 37.2; O2SAT 99
[2020-10-09 05:12] LABS: Basophils Absolute Auto 0.1 X10*3/uL (0.0-0.2); Basophils Percent Auto 0.7 % (0-2); Eosinophils Absolute Auto 0.3 X10*3/uL (0.0-0.4); Eosinophils Percent Auto 3.1 % (0-4); Hematocrit 35.1 % (37-47); Hemoglobin 11.3 g/dl (12.0-16.0); Imm Gran Abs Auto 0.03 X10*3/uL (0.00-0.03); Imm Gran Pct Auto 0.3 % (0.0-0.4); Lymphocytes Absolute Auto 2.3 X10*3/uL (1.2-4.9); Lymphocytes Percent Auto 25.8 % (20-40); Mean Corpuscular HGB Conc 32.2 g/dl (31.0-35.0); Mean Corpuscular Hemoglobin 28.3 pg (27.0-33.0); Mean Platelet Volume 8.2 fL (9.4-12.3); Monocytes Absolute Auto 0.5 X10*3/uL (0.1-1.2); Monocytes Percent Auto 5.7 % (2-11); Neutrophils Absolute Auto 5.7 X10*3/uL (2.0-8.3); Neutrophils Percent Auto 64.4 % (45-73); Platelet Count 509 X10*3/uL (160-400); Red Blood Count 3.99 X10*6/uL (4.20-5.50); Red Cell Distribution Width 12.7 % (11.0-16.0); White Blood Count 8.8 X10*3/uL (4.8-10.8)
[2020-10-09 05:13] LABS: MANUAL DIFF FLAG NO
[2020-10-09 05:15] LABS: Appearance Urine CLEAR; Color Urine YELLOW; Glucose Urine UA NEG (NEG); Leukocyte Esterase Urine NEG (NEG); Nitrite Urine NEG (NEG); PH 7.5 (5.0-8.0); UACC Culture Trigger NO; Urine Blood NEG (NEG); Urine Ketones NEG (NEG); Urine Protein NEG (NEG-TRACE)
[2020-10-09 05:16] LABS: UPreg QC Valid YES; Urine Pregnancy NEGATIVE (NEGATIVE)
--- NOTE | 2020-10-09 05:19 | PC.NURSE ---
hood emptied for 1200 cc of clear yellow urine.
[2020-10-09 05:28] LABS: Ammonia 26 umol/L (13-55)
[2020-10-09 05:33] LABS: Ethanol < 10 mg/dL
[2020-10-09 05:36] LABS: Amphetamine Screen Urine Not Detected (Not Detect); Barbiturates, Urine Not Detected (Not Detect); Benzodiazepines Screen Urine Not Detected (Not Detect); Cannabinoid Screen Urine Not Detected (Not Detect); Cocaine Screen Urine Not Detected (Not Detect); Opiate Screen Urine Not Detected (Not Detect); Phencyclidine Screen Urine Not Detected (Not Detect)
[2020-10-09 05:46] LABS: Alanine Aminotransferase 7 U/L (0-31); Albumin Level 3.6 g/dL (3.5-5.0); Alkaline Phosphatase 96 U/L (39-117); Anion Gap 18 (12-20); Aspartate Amino Transferase 10 U/L (5-31); Bilirubin Total 0.4 mg/dL (0.0-1.0); Blood Urea Nitrogen 8 mg/dL (9-16); Calcium 9.7 mg/dL (8.4-10.2); Carbon Dioxide 22 mmol/L (22-29); Chloride 104 mmol/L (96-108); Creatinine Clr Calc Pharmacy 104.1; Estimated Glomerular Filt Rate > 60; Glucose Random 123 mg/dL (60-115); Potassium 3.8 mmol/L (3.3-5.1); Sodium 140 mmol/L (135-145); Total Protein 7.5 g/dL (6.5-8.0)
--- NOTE | 2020-10-09 05:59 | PC.NURSE ---
call placed to [facility] per charge request. plan is to send [place] [employer] out to take statement. Pt details confirmed.
--- NOTE | 2020-10-09 06:29 | PC.NURSE ---
up dates to conversations pt heard. Khadijah rodriguez and another staff member conversation overheard by pt: Take her phone go get it are you going to get it 2nd person states ya im going to just fuck her up . response by 1st staff member said really . pt was nervouse and feared that these 2 staff members would fuck her up for her phone. Just go get it hit her we should just leave, no i got to get the phone, wait till she goes to sleep then the rn discussed what meds she was given. pt stated that if she dialed 911 and went along with the hallucination line that the male staff member told her that she would be able to get out of [place] and go somewhere safe. pt is ao3. skin: heals dry and breaking down, elevated on pillows, small scratch to inner ankle. pt states she wears soft boots. brief dry buttocks intack.
--- NOTE | 2020-10-09 06:39 | PC.NURSE ---
report filed by charge master coordinator with disabled disability protection commission at this present time. [place] police will be coming to take her report.
--- NOTE | 2020-10-09 06:50 | PC.NURSE ---
case filed with oli
--- NOTE | 2020-10-09 08:09 | PC.NURSE ---
pt finishing breakfast without complaints
[2020-10-09 10:19] VITALS: BP 90/54; PULSE 98; RESP 16; O2SAT 99
--- NOTE | 2020-10-09 10:21 | PC.NURSE ---
hood cath emptied of 900ml pt sleeping
[2020-10-09] MEDS: buPROPion HCl XL 300 MG TAB.ER.24H PO (11:30)
[2020-10-09] MEDS: Cyclobenzaprine HCl 10 MG TABLET PO ×3 (11:43→20:59)
[2020-10-09] MEDS: Baclofen 10 MG TABLET PO ×3 (11:44→20:59)
[2020-10-09] MEDS: Gabapentin 100 MG CAPSULE 200 MG PO ×3 (11:44→20:59)
--- NOTE | 2020-10-09 11:45 | PC.NURSE ---
Ok per syed Rider to give TID meds unscheduled due to pt missing am dose.
[2020-10-09 12:00] VITALS: BP 95/50; PULSE 89; RESP 16; TEMP 36.7; O2SAT 97
--- NOTE | 2020-10-09 12:50 | PC.NURSE ---
Ok per ALTHEA Rider to give methadone unscheduled due to pt missing AM dose.
--- NOTE | 2020-10-09 14:14 | PC.NURSE ---
Ok per syed Rider to switch q8vs
--- NOTE | 2020-10-09 14:26 | MHC.CM.ED ---
Received case management consult from Dr Vazquez overnight. Patient is a detention care resident of [facility]. She has stated that she is afraid to return because staff will jump her. Per [facility], patient is a bedhold. T/W attempted to speak to patient's mother/HCP, Wendy Frazier via telephone at [phone], to obtain more info on the patient. Left a voicemail requesting a return telephone call. Continue to monitor for d/c needs.
[2020-10-09] MEDS: TiZANidine HCL 4 MG TABLET PO (15:54)
[2020-10-09 15:58] VITALS: BP 99/54; PULSE 68; RESP 18; O2SAT 98
[2020-10-09] MEDS: Acetaminophen 325 MG TABLET 650 MG PO (16:09)
--- NOTE | 2020-10-09 16:11 | PC.NURSE ---
x2 call to pharmacy for methadone
--- NOTE | 2020-10-09 16:44 | PC.NURSE ---
Pt refusing repositioning at this time. Decling linen change as well.
--- NOTE | 2020-10-09 18:46 | MHC.CM.ED ---
CM spoke with pt mother and HCP, Wendy Lopez ([phone]), who is also a nurse. Pt mother had many complaints about the care her daughter has received and the level of skill those caring for her daughter have. Mother very angry on the telephone, making racist comments to CM about daughter's care givers. Stated the caregivers were [place] . Stated her daughter was poorly cared for cause she is white and she is unable to be at facilities to witness care for herself secondary to COVID . When CM met with pt, patient was calm and cooperative. Believes she overheard staff threatening to steal her cell phone. Pt does not want to return to [facility]as she does not feel safe there. Pt denies use of wheelchair, despite being a paraplegic and tells CM she was moved in a recliner chair. States she was receiving PT and OT and really liked the therapist at [facility]. States she has made improvements in her arm mobility and in feeding herself. States she is hopeful she will regain more movement in her lower extremities. States she was walking and normal before June 09 when she developed the infection in her spine. Pt initially requested that referrals be made closer to her mother in [place], but then stated to refer anywhere. 41 referrals placed. CM to follow for d/c needs.
[2020-10-09 20:00] VITALS: BP 101/57; PULSE 93; RESP 18; TEMP 37.5; O2SAT 98
[2020-10-09] MEDS: Sennosides 8.6 MG TABLET 17.2 MG PO (20:59)
[2020-10-09 21:20] LABS: COVID-19 Test Negative (Negative); IDNOW Serial# 9DD0AD1C
--- NOTE | 2020-10-09 21:51 | MHC.CM.ED ---
OT/PT evaluations pending for am. 3 facilities requesting OT/PT evaluations. Pt aware. Pleasant and cooperative. CM to follow for d/c needs
[2020-10-10 06:00] VITALS: RESP 16
[2020-10-10] MEDS: Enoxaparin Sodium 40 MG/0.4 ML SYRINGE SUBCUT (08:05)
[2020-10-10] MEDS: Baclofen 10 MG TABLET PO ×3 (08:06→22:23)
[2020-10-10] MEDS: Cyclobenzaprine HCl 10 MG TABLET PO ×3 (08:06→22:22)
[2020-10-10] MEDS: Sennosides 8.6 MG TABLET 17.2 MG PO ×2 (08:06→22:23)
[2020-10-10] MEDS: Gabapentin 100 MG CAPSULE 200 MG PO ×3 (08:06→22:23)
[2020-10-10] MEDS: buPROPion HCl XL 300 MG TAB.ER.24H PO (08:07)
[2020-10-10] MEDS: Fluticasone Propionate Nasal 16 GM SPRAY 2 SPRAY NOSTRIL-B (08:07)
[2020-10-10] MEDS: Omeprazole 20 MG CAPSULE.DR PO (08:07)
[2020-10-10] MEDS: guaiFENesin LA 600 MG TAB.ER.12H PO (09:39)
[2020-10-10 10:46] VITALS: PULSE 92; RESP 18; O2SAT 95
--- NOTE | 2020-10-10 14:27 | MHC.CM.ED ---
Patient remains in ER. A total of 42 referrals have been made. 3 are still reviewing. 11 have not responded. Continue to monitor for d/c needs.
[2020-10-10 15:55] VITALS: BP 109/61; PULSE 97; RESP 16; TEMP 37.3; O2SAT 99
--- NOTE | 2020-10-10 15:57 | PC.NURSE ---
PATIENT OUTPUT WAS 900 ML
[2020-10-10 17:59] VITALS: BP 98/51; PULSE 93; RESP 16; TEMP 37.4; O2SAT 99
[2020-10-10 21:35] VITALS: BP 109/58; PULSE 93; RESP 16; TEMP 37.6; O2SAT 99
[2020-10-10] MEDS: LORazepam 0.5 MG TABLET PO (22:23)
[2020-10-10] MEDS: Zolpidem Tartrate 5 MG TABLET PO (22:24)
[2020-10-10] MEDS: TiZANidine HCL 4 MG TABLET PO (22:24)
--- NOTE | 2020-10-10 22:30 | PC.NURSE ---
PATIENT WAS GIVEN A BED BATH BY THIS PCT ,PATIENT ALSO WAS GIVEN A HOSPITAL BED .
[2020-10-11 06:02] VITALS: PULSE 90; RESP 14; O2SAT 98
[2020-10-11] MEDS: Sennosides 8.6 MG TABLET 17.2 MG PO ×2 (08:42→21:27)
[2020-10-11] MEDS: Baclofen 10 MG TABLET PO ×3 (08:42→21:28)
[2020-10-11] MEDS: Enoxaparin Sodium 40 MG/0.4 ML SYRINGE SUBCUT (08:42)
[2020-10-11] MEDS: Gabapentin 100 MG CAPSULE 200 MG PO ×3 (08:42→21:28)
[2020-10-11] MEDS: buPROPion HCl XL 300 MG TAB.ER.24H PO (08:42)
[2020-10-11] MEDS: Cyclobenzaprine HCl 10 MG TABLET PO ×3 (08:43→21:27)
[2020-10-11] MEDS: Omeprazole 20 MG CAPSULE.DR PO (08:43)
[2020-10-11] MEDS: Fluticasone Propionate Nasal 16 GM SPRAY 2 SPRAY NOSTRIL-B (08:48)
--- NOTE | 2020-10-11 12:11 | MHC.CM.CNN ---
Patient remains in ER. Melanie, liaison for [facility] on premises and met with patient. Melanie may be able to find placement for her. Patient is agreeable at this time. Continue to monitor for d/c needs.
[2020-10-11] MEDS: Acetaminophen 325 MG TABLET 650 MG PO (15:25)
[2020-10-11] MEDS: LORazepam 0.5 MG TABLET PO ×2 (15:31→23:16)
[2020-10-11 18:07] VITALS: BP 117/63; PULSE 109; RESP 18; TEMP 37.2; O2SAT 99
[2020-10-11 20:16] VITALS: BP 135/51; PULSE 109; RESP 18; TEMP 37.6; O2SAT 99
[2020-10-11] MEDS: TiZANidine HCL 4 MG TABLET PO (23:15)
[2020-10-11] MEDS: Zolpidem Tartrate 5 MG TABLET PO (23:16)
[2020-10-12 01:06] VITALS: BP 135/69; PULSE 101; RESP 16; TEMP 37.5; O2SAT 99
--- NOTE | 2020-10-12 07:06 | PC.NURSE ---
Report received from Krishan PARSONS. Patient is awake and watching TV. Reports having a headache and is requesting Tylenol. Provider made aware and Tylenol ordered and given. Patient sitting upright eating breakfast independently. Respirations regular and even. Skin PWD. Call stuart in reach. Linen clean and dry at this time.
[2020-10-12] MEDS: Acetaminophen 325 MG TABLET 975 MG PO (07:28)
[2020-10-12 07:30] VITALS: BP 114/67; PULSE 89; RESP 16; O2SAT 98
[2020-10-12] MEDS: Gabapentin 100 MG CAPSULE 200 MG PO ×3 (08:20→21:30)
[2020-10-12] MEDS: buPROPion HCl XL 300 MG TAB.ER.24H PO (08:20)
[2020-10-12] MEDS: Cyclobenzaprine HCl 10 MG TABLET PO ×3 (08:20→21:30)
[2020-10-12] MEDS: Sennosides 8.6 MG TABLET 17.2 MG PO ×2 (08:21→21:31)
[2020-10-12] MEDS: Omeprazole 20 MG CAPSULE.DR PO (08:21)
[2020-10-12] MEDS: Baclofen 10 MG TABLET PO ×3 (08:21→21:30)
[2020-10-12] MEDS: Fluticasone Propionate Nasal 16 GM SPRAY 2 SPRAY NOSTRIL-B (08:22)
[2020-10-12] MEDS: Enoxaparin Sodium 40 MG/0.4 ML SYRINGE SUBCUT (08:22)
--- NOTE | 2020-10-12 09:09 | PC.NURSE ---
Patient medicated with AM medications. Tolerated well. Denies needs at this time. Reports comfort and does not want to be repositioned at this time.
--- NOTE | 2020-10-12 10:52 | PC.NURSE ---
Patient repositioned as requested. Emptied hood cath bag of 1500mL urine. Patient reports comfort and denies needs at this time.
--- NOTE | 2020-10-12 11:52 | PC.NURSE ---
patient currently sleeping, rr 18, will continue to monitor
--- NOTE | 2020-10-12 13:15 | PC.NURSE ---
called pharmacy, spoke to dung to obtain methadone
[2020-10-12 14:16] VITALS: BP 99/53; PULSE 114; RESP 18; O2SAT 97
--- NOTE | 2020-10-12 14:48 | PC.NURSE ---
patient medicated per order
--- NOTE | 2020-10-12 17:30 | PC.NURSE ---
patient currently sleeping, will continue to monitor
--- NOTE | 2020-10-12 19:59 | PC.NURSE ---
patient a&ox3, currently watching tv, hood cath patient/draining, patient positioned to comfort, will continue to monitor.
--- NOTE | 2020-10-12 20:35 | MHC.CM.ED ---
[facility] is interested and is checking insurance coverage. Pt has [employer]. Met with pt. In good spirits. Explained that [facility] in [place] in interested in her and is reviewing the insurance. Showed pt the Web Site for facility and photos. Pt is interested in going there if they offer a bed. Also aware that [facility] and [facility] are considering/reviewing insurance. Explained to pt that many facilities do not take patients on methadone, so that is a barrier for placement. Pt has no complaints or requests at this time. CM to follow for d/c needs.
[2020-10-12] MEDS: Zolpidem Tartrate 5 MG TABLET PO (21:31)
[2020-10-12 21:33] VITALS: BP 125/83; PULSE 99; RESP 18; TEMP 37.6; O2SAT 96
--- NOTE | 2020-10-12 21:38 | PC.NURSE ---
patient a&ox3, pt washed up/cleaned and changed per pt request, pt repositioned in bed, vitals obtained/stable, hood cath patient/draining clear yellow urine, pt medicated per order, will continue to monitor.
[2020-10-13] VITALS (18 sets, daily range): BP systolic 81–124; BP diastolic 41–75; PULSE 86–124; RESP 10–18; TEMP 36.7–38.3; O2SAT 95–99
--- NOTE | 2020-10-13 05:36 | PC.NURSE ---
PATIENT RESTING COMFORTABLY, ASKING FOR APPLE JUICE AND PUDDING. NO ACUTE DISTRESS NOTED. AWAITING FOR CASE MANAGEMENT PLACEMENT
[2020-10-13] MEDS: Sennosides 8.6 MG TABLET 17.2 MG PO ×2 (08:15→20:49)
[2020-10-13] MEDS: Omeprazole 20 MG CAPSULE.DR PO (08:16)
[2020-10-13] MEDS: Cyclobenzaprine HCl 10 MG TABLET PO ×2 (08:17→13:27)
[2020-10-13] MEDS: buPROPion HCl XL 300 MG TAB.ER.24H PO (08:17)
[2020-10-13] MEDS: Enoxaparin Sodium 40 MG/0.4 ML SYRINGE SUBCUT (08:21)
[2020-10-13] MEDS: Fluticasone Propionate Nasal 16 GM SPRAY 2 SPRAY NOSTRIL-B (08:29)
[2020-10-13] MEDS: Baclofen 10 MG TABLET PO ×3 (08:31→21:15)
[2020-10-13] MEDS: Gabapentin 100 MG CAPSULE 200 MG PO ×3 (08:32→21:16)
--- NOTE | 2020-10-13 08:54 | PC.NURSE ---
pt alert and oriented x3, lung sounds clear in all hess bilaterally. respirations equal and unlabored. pt eye contact and verbal response appropriate. pt able to speak in full sentences and make needs known. pt states current pain level is 9/10 and located in her upper back. ate 100% of breakfast. pt currently resting comfortably in bed in semi-fowlers. pt has no questions or concerns at this time. call stuart in reach.
--- NOTE | 2020-10-13 09:04 | PC.NURSE ---
emptied 1000cc from hood bag at 0900
--- NOTE | 2020-10-13 11:43 | PC.NURSE ---
pt cleaned by staff, bed linens changed, pt repositioned to left side. pt has no questions or concerns at this time. call stuart in reach.
--- NOTE | 2020-10-13 12:01 | PC.NURSE ---
pt refused to have her lunch order taken and stated she is not hungry. pt given 1 pudding and 1 jello, fluids encouraged.
--- NOTE | 2020-10-13 13:32 | PC.NURSE ---
pt states that last bm was 56 days ago, pt to be given mag citrate prn. pt ate 1 jello and 1 pudding and continues to drink apple juice from her pitcher.
[2020-10-13] MEDS: Magnesium Citrate 300 ML SOLUTION 150 ML PO (13:40)
--- NOTE | 2020-10-13 14:29 | PC.NURSE ---
pt refused to be repositioned and refused to have her bed linens or gown changed at this time
[2020-10-13 14:33] LABS: Glucose Urine UA NEG (NEG); Leukocyte Esterase Urine NEG (NEG); Nitrite Urine NEG (NEG); Urine Blood NEG (NEG); Urine Ketones NEG (NEG); Urine Protein NEG (NEG-TRACE)
[2020-10-13 14:35] LABS: Appearance Urine CLEAR; Color Urine YELLOW
--- NOTE | 2020-10-13 15:32 | PC.NURSE ---
pt cleansed, bed linens and gown changed, pt repositioned to right side with multiple pillows. pt had small firm golf ball sized bowel movement. 600ml emptied earlier from hood bag. hood bag was changed to new bag to obtain urine specimen. rectal temp was taken, temp was 101. left heel has a half-dollar sized fluid filled area. mlp (natacha) at bedside, xray to be ordered per Natacha. pt currently resting comfortably on right side , call stuart in reach.
--- NOTE | 2020-10-13 15:41 | MHC.CM.PN ---
DP To LTC. Referrals sent out. 3 facilities appear to be interested. 2 are currently in review. The 3rd is pending insurance verification. CM will follow.
--- NOTE | 2020-10-13 17:11 | PC.NURSE ---
pt has been repositioned to right side lying at her request. efforts to take pressure off left heel have been made. 2 attempts at IV access failed. Pt asking that IV be placed in foot but no good sites noted by this rn. Panda ADHESIVE BANDAGE MAKING OPERATOR to attempt access. Pt aware of amended plan of care d/t elevated temp and likely infection source in left foot. x rays complete.
--- NOTE | 2020-10-13 17:35 | PC.NURSE ---
christine SIGN LANGUAGE TRANSLATOR at bedside with PCT.
[2020-10-13] MEDS: Acetaminophen 325 MG TABLET 650 MG PO (18:05)
[2020-10-13] MEDS: cefTRIAXone sodium 1 GM in 0.9 % Sodium Chloride 50 ML IV (18:05)
--- NOTE | 2020-10-13 18:07 | PC.NURSE ---
left foot slightly discolored but warm. blanchable purple tone. elevated and color improves. PA aware of bp and fluids discussed
[2020-10-13] MEDS: LORazepam 0.5 MG TABLET PO (18:16)
[2020-10-13] MEDS: 0.9 % Sodium Chloride 1,000 ML 999 ML IVCONT (19:24)
[2020-10-13] MEDS: TiZANidine HCL 4 MG TABLET PO (20:49)
[2020-10-13] MEDS: Zolpidem Tartrate 5 MG TABLET PO (20:50)
[2020-10-13 21:11] LABS: MANUAL DIFF FLAG NO
[2020-10-13 21:23] LABS: Basophils Percent Auto 0.2 % (0-2); Eosinophils Absolute Auto 0.2 X10*3/uL (0.0-0.4); Eosinophils Percent Auto 1.3 % (0-4); Hemoglobin 10.2 g/dl (12.0-16.0); Imm Gran Abs Auto 0.05 X10*3/uL (0.00-0.03); Imm Gran Pct Auto 0.4 % (0.0-0.4); Lymphocytes Absolute Auto 2.7 X10*3/uL (1.2-4.9); Mean Corpuscular HGB Conc 32.9 g/dl (31.0-35.0); Mean Corpuscular Hemoglobin 28.4 pg (27.0-33.0); Mean Corpuscular Volume 86.4 fL (80-98); Mean Platelet Volume 8.6 fL (9.4-12.3); Monocytes Absolute Auto 1.1 X10*3/uL (0.1-1.2); Monocytes Percent Auto 8.9 % (2-11); Neutrophils Absolute Auto 7.8 X10*3/uL (2.0-8.3); Neutrophils Percent Auto 66.2 % (45-73); Platelet Count 428 X10*3/uL (160-400); Red Blood Count 3.59 X10*6/uL (4.20-5.50); Red Cell Distribution Width 12.7 % (11.0-16.0); White Blood Count 11.7 X10*3/uL (4.8-10.8)
[2020-10-13 21:31] LABS: INTERNATIONAL NORM RATIO 1.4 (0.9-1.1); Prothrombin Time 16.1 SEC (10.8-13.0)
[2020-10-13 21:33] LABS: Lactic Acid 1.3 mmol/L (0.5-2.0)
[2020-10-13 21:34] LABS: Partial Thromboplastin Time 54.8 SEC (24.1-38.0)
[2020-10-13 21:40] LABS: B Type Natriuretic Peptide < 10 pg/mL (<100)
[2020-10-13 21:41] LABS: Alanine Aminotransferase < 6 U/L (0-31); Alkaline Phosphatase 62 U/L (39-117); Anion Gap 12 (12-20); Aspartate Amino Transferase 8 U/L (5-31); Bilirubin Direct 0.2 mg/dL (0.0-0.5); Bilirubin Total 0.3 mg/dL (0.0-1.0); Blood Urea Nitrogen 11 mg/dL (9-16); Calcium 8.3 mg/dL (8.4-10.2); Carbon Dioxide 27 mmol/L (22-29); Chloride 103 mmol/L (96-108); Creatinine Clr Calc Pharmacy 124.6; Estimated Glomerular Filt Rate > 60; Glucose Random 82 mg/dL (60-115); Lipase 21 U/L (8-78); Magnesium 1.9 mg/dL (1.6-2.6); Potassium 3.5 mmol/L (3.3-5.1); Sodium 138 mmol/L (135-145)
--- NOTE | 2020-10-13 21:42 | PC.NURSE ---
fitted with boots to elevate heels from bed. left heel has pink padded wound dressing place.
[2020-10-13 21:50] LABS: Influenza A PCR NEGATIVE (Negative); Influenza B PCR NEGATIVE (Negative); Resp Syncy Virus RNA Qual PCR NEGATIVE (Negative); SARS COV2 PCR INHOUSE NEGATIVE (Negative)
[2020-10-13] MEDS: Docusate Sodium 100 MG CAPSULE PO (21:50)
--- NOTE | 2020-10-13 22:07 | PC.NURSE ---
pt had a total of 2100 ml normal saline.
[2020-10-13] MEDS: 0.9 % Sodium Chloride 1,000 ML 100 ML IVCONT (22:16)
--- NOTE | 2020-10-13 22:24 | PC.NURSE ---
additional 1 l bolus of normal saline being administered, will total 3 l ns in past 3-4 hours including order for sepsis. pt wakes to touch. bp systolic in 90's before night medications administered.
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
--- NOTE | 2020-10-13 22:51 | PC.NURSE ---
repositioned again to right side lying. pt is drowsy but arousable to light touch. no open wounds on buttocks or back but areas of blanchable reddness.
--- NOTE | 2020-10-13 23:25 | PC.NURSE ---
hospitalist sent a tiger text making him aware of pt's bp in the high 70's. map 59.
--- NOTE | 2020-10-13 23:29 | PC.NURSE ---
4th liter of normal saline now running, in adition to 100ml/hr. pt's rr falls to 10 while sleeping, but spo2 remains 97%. pt wakes easily.
--- NOTE | 2020-10-13 23:46 | PC.NURSE ---
FLEXERIL HELD EARLIER, PT RECEIVED ANOTHER MUSCLE RELAXER WITH BEDTIME MEDICATIONS. PT'S BLOOD PRESSURE WAS 90'S SYSTOLIC AT THE TIME.
[2020-10-14] VITALS (12 sets, daily range): BP systolic 85–128; BP diastolic 45–63; PULSE 77–118; RESP 10–16; TEMP 36.6–38; O2SAT 86–100
[2020-10-14] MEDS: Piperacillin Sodium/Tazobactam 3.375 GM in 0.9 % Sodium Chloride 50 ML IV ×3 (01:48→20:46)
[2020-10-14] MEDS: 0.9 % Sodium Chloride Flush 3 ML SYRINGE IVFLUSH ×3 (01:48→21:31)
[2020-10-14] MEDS: 0.9 % Sodium Chloride 1,000 ML 100 ML IVCONT ×3 (01:49→16:18)
--- NOTE | 2020-10-14 07:34 | PC.NURSE ---
pt is alert, preinted. Received in bed, has eaten some breakfast, states has eaten enough. Requests medication prior to turning/skin care. Will do both at 8a. VSS. Awaiting bed assignment
[2020-10-14] MEDS: Sennosides 8.6 MG TABLET 17.2 MG PO ×2 (08:17→20:15)
[2020-10-14] MEDS: Cholecalciferol (Vitamin D3) 25 MCG TABLET PO (08:17)
[2020-10-14] MEDS: Omeprazole 20 MG CAPSULE.DR PO (08:17)
[2020-10-14] MEDS: Docusate Sodium 100 MG CAPSULE PO ×2 (08:17→20:15)
[2020-10-14] MEDS: buPROPion HCl XL 300 MG TAB.ER.24H PO (08:17)
[2020-10-14] MEDS: Fluconazole 100 MG TABLET 200 MG PO ×2 (08:17→20:16)
[2020-10-14] MEDS: Enoxaparin Sodium 40 MG/0.4 ML SYRINGE SUBCUT (08:19)
[2020-10-14 08:22] LABS: MANUAL DIFF FLAG NO
[2020-10-14 08:29] LABS: Basophils Percent Auto 0.5 % (0-2); Eosinophils Absolute Auto 0.3 X10*3/uL (0.0-0.4); Eosinophils Percent Auto 3.5 % (0-4); Hematocrit 32.8 % (37-47); Hemoglobin 10.3 g/dl (12.0-16.0); Imm Gran Abs Auto 0.05 X10*3/uL (0.00-0.03); Imm Gran Pct Auto 0.6 % (0.0-0.4); Lymphocytes Percent Auto 22.6 % (20-40); Mean Corpuscular HGB Conc 31.4 g/dl (31.0-35.0); Mean Corpuscular Hemoglobin 28.1 pg (27.0-33.0); Mean Corpuscular Volume 89.6 fL (80-98); Mean Platelet Volume 9.1 fL (9.4-12.3); Monocytes Absolute Auto 0.7 X10*3/uL (0.1-1.2); Monocytes Percent Auto 8.5 % (2-11); Neutrophils Absolute Auto 5.6 X10*3/uL (2.0-8.3); Neutrophils Percent Auto 64.3 % (45-73); Platelet Count 367 X10*3/uL (160-400); Red Blood Count 3.66 X10*6/uL (4.20-5.50); Red Cell Distribution Width 12.9 % (11.0-16.0); White Blood Count 8.7 X10*3/uL (4.8-10.8)
[2020-10-14] MEDS: Lactulose 20 GM/30 ML SOLUTION PO (08:31)
[2020-10-14] MEDS: Cyclobenzaprine HCl 10 MG TABLET PO ×3 (08:31→20:15)
[2020-10-14] MEDS: guaiFENesin LA 600 MG TAB.ER.12H PO (08:31)
[2020-10-14] MEDS: Baclofen 10 MG TABLET PO ×3 (08:32→20:47)
[2020-10-14] MEDS: polyethylene glycoL 3350 17 GM POWD.PACK PO ×2 (08:32→20:16)
[2020-10-14 08:58] LABS: Anion Gap 16 (12-20); Blood Urea Nitrogen 7 mg/dL (9-16); Calcium 8.4 mg/dL (8.4-10.2); Carbon Dioxide 20 mmol/L (22-29); Chloride 108 mmol/L (96-108); Creatinine Clr Calc Pharmacy 129.2; Estimated Glomerular Filt Rate > 60; Glucose Random 127 mg/dL (60-115); Magnesium 1.8 mg/dL (1.6-2.6); Potassium 3.9 mmol/L (3.3-5.1); Sodium 140 mmol/L (135-145)
[2020-10-14] MEDS: Gabapentin 100 MG CAPSULE 200 MG PO ×2 (12:42→20:19)
--- NOTE | 2020-10-14 12:45 | PC.NURSE ---
pharmacy called for methadone
--- NOTE | 2020-10-14 12:54 | P.PNIM_ITS ---
Subjective Subjective Date of Service: 10/14/20 Interval History: no fever denies pain but no sensation below chest [chronic] Physical Exam Vital Signs: Vital Signs: Last Vital Signs Temp 98 F 10/14/20 07:32 Pulse 100 10/14/20 07:32 Resp 12 10/14/20 07:32 BP 101/54 L 10/14/20 07:32 Pulse Ox 97 10/14/20 07:32 Body Mass Index 28.7 Gen: in no acute distress HEENT: sclera anicteric, moist mucus membranes Neck: supple Lungs: clear to auscultation bilaterally Heart: regular rate and rhythm, no murmurs Abd: soft, non-tender, non-distended Ext: no edema Skin: warm/well-perfused, L heel blister/erythema Neuro: alert and oriented x3, paraplegia Psych: appropriate affect Objective Data Current Medications Generic Name Dose Route Start Last Admin Trade Name Freq PRN Reason Stop Dose Admin Acetaminophen 650 mg 10/13/20 20:23 Acetaminophen 325 Mg Tablet PO Q6H PRN Pain, Mild (Pain Scale 1-3) Baclofen 10 mg 10/11/20 13:02 10/14/20 12:42 Baclofen 10 Mg Tablet PO 10 mg 0900,1300,2100 ELIDIA Administration Bisacodyl 10 mg 10/13/20 20:24 Bisacodyl 10 Mg Supp.Rect MN DAILY PRN Constipation Bupropion HCl 300 mg 10/09/20 10:30 10/14/20 08:17 Bupropion Hcl Xl 300 Mg Tab.Er.24h PO 300 mg DAILY ELIDIA Administration Cyclobenzaprine HCl 10 mg 10/11/20 13:15 10/14/20 12:42 Cyclobenzaprine Hcl 10 Mg Tablet PO 10 mg 0900,1300,2100 ELIDIA Administration Docusate Sodium 100 mg 10/13/20 21:00 10/14/20 08:17 Docusate Sodium 100 Mg Capsule PO 100 mg BID ELIDIA Administration Doxycycline Hyclate 100 mg 10/09/20 21:00 10/14/20 08:18 Doxycycline Hyclate 100 Mg Tablet PO 100 mg Q12H ELIDIA Administration Enoxaparin Sodium 40 mg 10/10/20 09:00 10/14/20 08:19 Enoxaparin Sodium 40 Mg/0.4 Ml Syringe SUBCUT 40 mg DAILY ELIDIA Administration Fluconazole 200 mg 10/14/20 09:00 10/14/20 08:17 Fluconazole 100 Mg Tablet PO 200 mg BID ELIDIA Administration Fluticasone Propionate 2 spray 10/10/20 09:00 10/13/20 08:29 Fluticasone Propionate Nasal 16 Gm [place] NOSTRIL-B 2 spray DAILY ELIDIA Administration Gabapentin 200 mg 10/11/20 13:15 10/14/20 12:42 Gabapentin 100 Mg Capsule PO 200 mg 0900,1300,2100 ELIDIA Administration Guaifenesin 600 mg 10/13/20 20:24 10/14/20 08:31 Guaifenesin La 600 Mg Tab.Er.12h PO 600 mg BID PRN Administration Congestion Sodium Chloride 1,000 mls @ 100 mls/hr 10/13/20 20:30 10/14/20 08:32 Ns IVCONT 100 mls/hr .Q10H ELIDIA Administration Sodium Chloride 1,000 mls @ 100 mls/hr 10/13/20 22:45 10/14/20 12:00 Ns IVCONT Infused .Q10H ELIDIA Infusion Piperacillin Sod/Tazobactam 50 mls @ 100 mls/hr 10/14/20 08:00 Sod 3.375 gm/ Sodium Chloride IV Q6H ELIDIA Lactulose 20 gm 10/13/20 20:24 10/14/20 08:31 Lactulose 20 Gm/30 Ml Solution PO 20 gm BID PRN Administration Constipation Magnesium Citrate 150 ml 10/09/20 10:28 10/13/20 13:40 Magnesium Citrate 300 Ml Solution PO 150 ml DAILY PRN Administration constipation Magnesium Hydroxide 30 ml 10/13/20 20:24 Milk Of Magnesia 30 Ml Oral.Susp PO DAILY PRN Constipation Methadone HCl 20 mg 10/11/20 13:15 10/14/20 08:30 Methadone Hcl 1 Mg/0.1 Ml Oral.Conc PO 20 mg 0900,1300,2100 ELIDIA Administration Omeprazole 20 mg 10/10/20 09:00 10/14/20 08:17 Omeprazole 20 Mg Capsule. PO 20 mg DAILY ELIDIA Administration Pharmacy Consult 1 each 10/09/20 05:57 Consult Rx Perform Med Rec MISCELLANE ONCE PRN Consult order Polyethylene Glycol 17 gm 10/13/20 21:00 10/14/20 08:32 Polyethylene Glycol 3350 17 Gm Powd.Pack PO 17 gm BID ELIDIA Administration Senna 17.2 mg 10/09/20 21:00 10/14/20 08:17 Sennosides 8.6 Mg Tablet PO 17.2 mg BID ELIDIA Administration Sodium Biphosphate/Sodium Phosphate 118 ml 10/13/20 20:24 Sodium Phosphate,[place]-Dibasic 133 Ml Enema [place] DAILY PRN Constipation Sodium Chloride 3 ml 10/14/20 00:00 10/14/20 01:48 0.9 % Sodium Chloride Flush 3 Ml Syringe IVFLUSH 3 ml QSHIFT ELIDIA Administration Tizanidine HCl 4 mg 10/09/20 10:28 10/13/20 20:49 Tizanidine Hcl 4 Mg Tablet PO 4 mg Q8H PRN Administration Spasms Vitamin D 25 mcg 10/14/20 09:00 10/14/20 08:17 Cholecalciferol (Vitamin D3) 25 Mcg Tablet PO 25 mcg DAILY ELIDIA Administration Zolpidem Tartrate 5 mg 10/09/20 21:00 10/13/20 20:50 Zolpidem Tartrate 5 Mg Tablet PO 5 mg BEDTIME PRN Administration sleep Labs CBC & Chem 7: 10/14/20 08:12 10/14/20 08:12 Labs: Laboratory Results - last 24 hr 10/13/20 10/13/20 10/13/20 14:21 21:03 21:03 WBC 11.7 H RBC 3.59 L Hgb 10.2 L Hct 31.0 L MCV 86.4 MCH 28.4 MCHC 32.9 RDW 12.7 Plt Count 428 H MPV 8.6 L Immature Gran % (Auto) 0.4 Neut % (Auto) 66.2 Lymph % (Auto) 23.0 [place] % (Auto) 8.9 Eos % (Auto) 1.3 Baso % (Auto) 0.2 Lymph # (Auto) 2.7 [place] # (Auto) 1.1 Eos # (Auto) 0.2 Baso # (Auto) 0.0 Abs Immat Gran (auto) 0.05 H Absolute Neuts (auto) 7.8 Absolute Nucleated RBC 0.000 Nucleated RBC % (auto) 0.0 Hold Purple Top PT INR APTT Sodium Potassium Chloride Carbon Dioxide Anion Gap BUN Creatinine Estim Creat Clear Calc Estimated GFR Random Glucose Lactic Acid 1.3 Calcium Magnesium Total Bilirubin Direct Bilirubin AST ALT Alkaline Phosphatase B-Natriuretic Peptide Total Protein Albumin Lipase Urine Color YELLOW Urine Appearance CLEAR Urine pH 7.0 Ur Specific [place] 1.010 Urine Protein NEG Urine Glucose (UA) NEG Urine Ketones NEG Urine Blood NEG Urine Nitrite NEG Ur Leukocyte Esterase NEG Coronavirus (PCR) Influenza Type A (PCR) Influenza Type B (PCR) RSV RNA Qual (PCR) 10/13/20 10/13/20 10/13/20 21:03 21:03 21:03 WBC RBC Hgb Hct MCV MCH MCHC RDW Plt Count MPV Immature Gran % (Auto) Neut % (Auto) Lymph % (Auto) [place] % (Auto) Eos % (Auto) Baso % (Auto) Lymph # (Auto) [place] # (Auto) Eos # (Auto) Baso # (Auto) Abs Immat Gran (auto) Absolute Neuts (auto) Absolute Nucleated RBC Nucleated RBC % (auto) Hold Purple Top SEE NOTE PT 16.1 H INR 1.4 H APTT 54.8 H Sodium 138 Potassium 3.5 Chloride 103 Carbon Dioxide 27 Anion Gap 12 BUN 11 Creatinine 0.56 Estim Creat Clear Calc 124.6 Estimated GFR > 60 Random Glucose 82 Lactic Acid Calcium 8.3 L D Magnesium Total Bilirubin Direct Bilirubin AST ALT Alkaline Phosphatase B-Natriuretic Peptide Total Protein Albumin Lipase Urine Color Urine Appearance Urine pH Ur Specific [place] Urine Protein Urine Glucose (UA) Urine Ketones Urine Blood Urine Nitrite Ur Leukocyte Esterase Coronavirus (PCR) Influenza Type A (PCR) Influenza Type B (PCR) RSV RNA Qual (PCR) 10/13/20 10/13/20 10/13/20 21:03 21:03 21:03 WBC RBC Hgb Hct MCV MCH MCHC RDW Plt Count MPV Immature Gran % (Auto) Neut % (Auto) Lymph % (Auto) [place] % (Auto) Eos % (Auto) Baso % (Auto) Lymph # (Auto) [place] # (Auto) Eos # (Auto) Baso # (Auto) Abs Immat Gran (auto) Absolute Neuts (auto) Absolute Nucleated RBC Nucleated RBC % (auto) Hold Purple Top PT INR APTT Sodium Potassium Chloride Carbon Dioxide Anion Gap BUN Creatinine Estim Creat Clear Calc Estimated GFR Random Glucose Lactic Acid Calcium Magnesium 1.9 Total Bilirubin 0.3 Direct Bilirubin 0.2 AST 8 ALT < 6 Alkaline Phosphatase 62 D B-Natriuretic Peptide < 10 Total Protein 6.0 L Albumin 3.0 L Lipase 21 Urine Color Urine Appearance Urine pH Ur Specific [place] Urine Protein Urine Glucose (UA) Urine Ketones Urine Blood Urine Nitrite Ur Leukocyte Esterase Coronavirus (PCR) NEGATIVE Influenza Type A (PCR) NEGATIVE Influenza Type B (PCR) NEGATIVE RSV RNA Qual (PCR) NEGATIVE 10/14/20 10/14/20 08:12 08:12 WBC 8.7 RBC 3.66 L Hgb 10.3 L Hct 32.8 L MCV 89.6 MCH 28.1 MCHC 31.4 RDW 12.9 Plt Count 367 MPV 9.1 L Immature Gran % (Auto) 0.6 H Neut % (Auto) 64.3 Lymph % (Auto) 22.6 [place] % (Auto) 8.5 Eos % (Auto) 3.5 Baso % (Auto) 0.5 Lymph # (Auto) 2.0 [place] # (Auto) 0.7 Eos # (Auto) 0.3 Baso # (Auto) 0.0 Abs Immat Gran (auto) 0.05 H Absolute Neuts (auto) 5.6 Absolute Nucleated RBC 0.000 Nucleated RBC % (auto) 0.0 Hold Purple Top PT INR APTT Sodium 140 Potassium 3.9 Chloride 108 Carbon Dioxide 20 L Anion Gap 16 BUN 7 L Creatinine 0.54 Estim Creat Clear Calc 129.2 Estimated GFR > 60 Random Glucose 127 H D Lactic Acid Calcium 8.4 Magnesium 1.8 Total Bilirubin Direct Bilirubin AST ALT Alkaline Phosphatase B-Natriuretic Peptide Total Protein Albumin Lipase Urine Color Urine Appearance Urine pH Ur Specific [place] Urine Protein Urine Glucose (UA) Urine Ketones Urine Blood Urine Nitrite Ur Leukocyte Esterase Coronavirus (PCR) Influenza Type A (PCR) Influenza Type B (PCR) RSV RNA Qual (PCR) Assessment and Plan (1) Cellulitis: Status: Acute Assessment and Plan: hospital d#2 40yo F with 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 add pip/randell. ID consult. follow BCx # hypotension - resolved # MSSA bacteremia/diskitis/osteomyelitis - continue doxycycline # candidemia [present prior to admission] - continue fluconazole # pressure injury of heels - wound care consult # opioid use disorder - continue methadone # mood disorder - continue bupropion # VTE ppx - LMWH
--- NOTE | 2020-10-14 13:53 | PC.NURSE ---
Unknown if previous meds from previous shift were given- this rn documented against per recommendation from pharmacy.
--- NOTE | 2020-10-14 15:01 | MHC.CM.PN ---
Addendum entered by Marifer Cassidy 10/14/20 15:19: Referrals have previously been sent with 3 facilities interested. CM will follow. [facility] SN[facility] LTC via BLS. Pt is on Methadone; which is a barrier to placement in some facilities. Original Note: Female 40 10/09/20 This Pt with PMH IVDA with Spinal infection w Paralysis [place] [facility] [place] [facility]. She is here for placement; because she has concerns re facility staff. 10/13/20 The patient developed a fever. She was noted to have blisters on her Heal; which appear to be the cause. An ID consult and Wound clinic consult have been ordered. The order for admit 10/13/20. Patient is dependent all functional mobility. She is WC bound. She resides in a SNF for LTC. CONSTANTINE
--- NOTE | 2020-10-14 15:42 | PC.NURSE ---
Pt incont of bmx2- chanelle care provided, barrier cream applied. Pt repositioned to R side as requested. Assisted with hygiene, oral care, hair care.
[2020-10-14] MEDS: Acetaminophen 325 MG TABLET 650 MG PO (16:16)
--- NOTE | 2020-10-14 19:35 | PC.NURSE ---
X1 ATTEMPT TO GIVE REPORT- AWAITING CALLBACK
[2020-10-14] MEDS: Zolpidem Tartrate 5 MG TABLET PO (21:31)
[2020-10-15] MEDS: Piperacillin Sodium/Tazobactam 3.375 GM in 0.9 % Sodium Chloride 50 ML IV ×4 (02:18→20:54)
[2020-10-15] MEDS: 0.9 % Sodium Chloride 1,000 ML 100 ML IVCONT ×2 (02:18→13:15)
[2020-10-15 07:28] VITALS: BP 98/58; PULSE 103; RESP 18; TEMP 35.6
[2020-10-15] MEDS: Enoxaparin Sodium 40 MG/0.4 ML SYRINGE SUBCUT (09:13)
[2020-10-15] MEDS: buPROPion HCl XL 300 MG TAB.ER.24H PO (09:14)
[2020-10-15] MEDS: Baclofen 10 MG TABLET PO ×3 (09:14→20:27)
[2020-10-15] MEDS: Docusate Sodium 100 MG CAPSULE PO ×2 (09:14→20:28)
[2020-10-15] MEDS: Omeprazole 20 MG CAPSULE.DR PO (09:14)
[2020-10-15] MEDS: Cholecalciferol (Vitamin D3) 25 MCG TABLET PO (09:14)
[2020-10-15] MEDS: Gabapentin 100 MG CAPSULE 200 MG PO ×3 (09:14→20:25)
[2020-10-15] MEDS: polyethylene glycoL 3350 17 GM POWD.PACK PO ×2 (09:14→20:24)
[2020-10-15] MEDS: Cyclobenzaprine HCl 10 MG TABLET PO ×3 (09:14→20:26)
[2020-10-15] MEDS: Sennosides 8.6 MG TABLET 17.2 MG PO ×2 (09:14→20:25)
[2020-10-15] MEDS: Fluconazole 100 MG TABLET 200 MG PO ×2 (09:14→20:25)
[2020-10-15] MEDS: Fluticasone Propionate Nasal 16 GM SPRAY 2 SPRAY NOSTRIL-B (09:15)
--- NOTE | 2020-10-15 09:57 | P.CDIC_ITS ---
CDI Concurrent Query Service Date: 10/15/20 Documentation Clarification: Please clarify if you are treating a proba ble/suspected/likely or confirmed: Acute encephalopathy Metabolic and/or toxic encephalopathy Please specify if known Provider Response: Other Other Diagnosis: Not aware of the reported problem PLEASE DO NOT DELETE/MODIFY EXISTING CONTENT Additional information is needed in order to code to the highest accuracy and appropriate Severity of Illness (SOI). Please clarify the information noted below in your progress notes and discharge summary. Risk Factors/Clinical Indicators/Treatments ED: 10/13 - altered mental status, hallucinations, encephalopathy, felt place of stay was stealing from her, need work up to rule out delirium. cellulitis/blister on heel CDS: Kaila Cox CCS, CDIS Contact Number: [phone] Please Review the information above and exercise your independent professional judgment in responding to the query. If you concur, pleas document in the PROGRESS NOTES and DISCHARGE SUMMARY. If you do not agree with the query, please document in the query above. THIS QUERY IS PART OF THE PERMANENT MEDICAL RECORD
--- NOTE | 2020-10-15 10:08 | P.CDIC_ITS ---
CDI Concurrent Query Service Date: 10/15/20 Documentation Clarification: Please clarify if you are treating a proba ble/suspected/likely or confirmed: Sepsis txt, POA Sepsis rule out Please specify if known Provider Response: Sepsis PLEASE DO NOT DELETE/MODIFY EXISTING CONTENT Additional information is needed in order to code to the highest accuracy and appropriate Severity of Illness (SOI). Please clarify the information noted below in your progress notes and discharge summary. Risk Factors/Clinical Indicators/Treatments ED: possibly admit for cellulitis and sepsis. Temp 101 Tachycardic 100's Hypotensive 90/61 WBC 11.7 Zosyn and has been on antibiotics prior b/c sent ID consult CDS: Kaila Cox CCS, CDIS Contact Number: [phone] Please Review the information above and exercise your independent professional judgment in responding to the query. If you concur, pleas document in the PROGRESS NOTES and DISCHARGE SUMMARY. If you do not agree with the query, please document in the query above. THIS QUERY IS PART OF THE PERMANENT MEDICAL RECORD
[2020-10-15 10:40] VITALS: BMI 28.7
--- NOTE | 2020-10-15 10:42 | MHC.CLN ---
RE: CONSULT RECOMMEND ADDING ENSURE BID AND HARDIK TO PROMOTE WOUND HEALING SEE CLINICAL NUTRITION ASSESSMENT
[2020-10-15 11:20] VITALS: BP 93/60; PULSE 106; RESP 18; TEMP 35.9; O2SAT 99
--- NOTE | 2020-10-15 13:19 | HO.PM.IMPN ---
Subjective Subjective Date of Service: 10/15/20 Interval History: The patient was seen and evaluated this morning Laying in bed, feels comfortable overall, have pain in her heel Denies any fever, chills since last night No reported other overnight events. Systemic review: No fever, chills or weakness No chest pain, palpitation No shortness of breath or coughing No abdominal pain, nausea or vomiting No urinary symptoms Left heel rash, no drain Physical Exam Vital Signs: Vital Signs: Last Vital Signs Temp 96.7 F L 10/15/20 11:20 Pulse 106 H 10/15/20 11:20 Resp 18 10/15/20 11:20 BP 93/60 10/15/20 11:20 Pulse Ox 99 10/15/20 11:20 Body Mass Index 28.7 Const: Other: Constitutional : Alert, oriented, not in distress Neck : Normal inspection, Supple Cardiovascular : RRR, S1 S2, no lower extremity edema Respiratory : Good bilateral air entry, no crackles, wheezes or rhonchi Gastrointestinal: soft, lax, Normal bowel sounds, Non tender Skin : Warm/Dry, L heel blister/erythema Neurological : Alert & oriented x3, paraplegic Objective Data Current Medications Generic Name Dose Route Start Last Admin Trade Name Freq PRN Reason Stop Dose Admin Acetaminophen 650 mg 10/13/20 20:23 10/14/20 16:16 Acetaminophen 325 Mg Tablet PO 650 mg Q6H PRN Administration Pain, Mild (Pain Scale 1-3) Baclofen 10 mg 10/11/20 13:02 10/15/20 13:16 Baclofen 10 Mg Tablet PO 10 mg 0900,1300,2100 ELIDIA Administration Bisacodyl 10 mg 10/13/20 20:24 Bisacodyl 10 Mg Supp.Rect AR DAILY PRN Constipation Bupropion HCl 300 mg 10/09/20 10:30 10/15/20 09:14 Bupropion Hcl Xl 300 Mg Tab.Er.24h PO 300 mg DAILY ELIDIA Administration Cyclobenzaprine HCl 10 mg 10/11/20 13:15 10/15/20 13:16 Cyclobenzaprine Hcl 10 Mg Tablet PO 10 mg 0900,1300,2100 ELIDIA Administration Docusate Sodium 100 mg 10/13/20 21:00 10/15/20 09:14 Docusate Sodium 100 Mg Capsule PO 100 mg BID ELIDIA Administration Doxycycline Hyclate 100 mg 10/09/20 21:00 10/15/20 09:14 Doxycycline Hyclate 100 Mg Tablet PO 100 mg Q12H ELIDIA Administration Enoxaparin Sodium 40 mg 10/10/20 09:00 10/15/20 09:13 Enoxaparin Sodium 40 Mg/0.4 Ml Syringe SUBCUT 40 mg DAILY ELIDIA Administration Fluconazole 200 mg 10/14/20 09:00 10/15/20 09:14 Fluconazole 100 Mg Tablet PO 200 mg BID ELIDIA Administration Fluticasone Propionate 2 spray 10/10/20 09:00 10/15/20 09:15 Fluticasone Propionate Nasal 16 Gm [place] NOSTRIL-B 2 spray DAILY ELIDIA Administration Gabapentin 200 mg 10/11/20 13:15 10/15/20 13:16 Gabapentin 100 Mg Capsule PO 200 mg 0900,1300,2100 [facility] Administration Guaifenesin 600 mg 10/13/20 20:24 10/14/20 08:31 Guaifenesin La 600 Mg Tab.Er.12h PO 600 mg BID PRN Administration Congestion Sodium Chloride 1,000 mls @ 100 mls/hr 10/13/20 20:30 10/15/20 13:15 Ns IVCONT 100 mls/hr .Q10H ELIDIA Administration Piperacillin Sod/Tazobactam 50 mls @ 100 mls/hr 10/14/20 08:00 10/15/20 09:45 Sod 3.375 gm/ Sodium Chloride IV Infused Q6H ELIDIA Infusion Lactulose 20 gm 10/13/20 20:24 10/14/20 08:31 Lactulose 20 Gm/30 Ml Solution PO 20 gm BID PRN Administration Constipation Magnesium Citrate 150 ml 10/09/20 10:28 10/13/20 13:40 Magnesium Citrate 300 Ml Solution PO 150 ml DAILY PRN Administration constipation Magnesium Hydroxide 30 ml 10/13/20 20:24 Milk Of Magnesia 30 Ml Oral.Susp PO DAILY PRN Constipation Methadone HCl 20 mg 10/11/20 13:15 10/15/20 13:16 Methadone Hcl 1 Mg/0.1 Ml Oral.Conc PO 20 mg 0900,1300,2100 ELIDIA Administration Omeprazole 20 mg 10/10/20 09:00 10/15/20 09:14 Omeprazole 20 Mg Capsule. PO 20 mg DAILY ELIDIA Administration Pharmacy Consult 1 each 10/09/20 05:57 Consult Rx Perform Med Rec MISCELLANE ONCE PRN Consult order Polyethylene Glycol 17 gm 10/13/20 21:00 10/15/20 09:14 Polyethylene Glycol 3350 17 Gm Powd.Pack PO 17 gm BID ELIDIA Administration Senna 17.2 mg 10/09/20 21:00 10/15/20 09:14 Sennosides 8.6 Mg Tablet PO 17.2 mg BID ELIDIA Administration Sodium Biphosphate/Sodium Phosphate 118 ml 10/13/20 20:24 Sodium Phosphate,[place]-Dibasic 133 Ml Enema [place] DAILY PRN Constipation Sodium Chloride 3 ml 10/14/20 00:00 10/15/20 09:13 0.9 % Sodium Chloride Flush 3 Ml Syringe IVFLUSH Not Given QSHIFT ELIDIA Tizanidine HCl 4 mg 10/09/20 10:28 10/13/20 20:49 Tizanidine Hcl 4 Mg Tablet PO 4 mg Q8H PRN Administration Spasms Vitamin D 25 mcg 10/14/20 09:00 10/15/20 09:14 Cholecalciferol (Vitamin D3) 25 Mcg Tablet PO 25 mcg DAILY ELIDIA Administration Zolpidem Tartrate 5 mg 10/14/20 21:14 10/14/20 21:31 Zolpidem Tartrate 5 Mg Tablet PO 5 mg BEDTIME PRN Administration Insomnia Labs CBC & Chem 7: 10/14/20 08:12 10/14/20 08:12 Microbiology Microbiology Results: Microbiology 10/13/20 21:03 Blood - Venous Blood Culture - Preliminary No growth after 24 hours. 10/13/20 17:57 Blood - Venous Blood Culture - Preliminary No growth after 24 hours. 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 Continue pip/randell. ID consult. follow BCx # hypotension resolved # MSSA bacteremia/diskitis/osteomyelitis continue doxycycline # candidemia [present prior to admission] continue fluconazole # pressure injury of heels wound care consult # opioid use disorder continue methadone # mood disorder continue bupropion # VTE ppx LMWH
--- NOTE | 2020-10-15 13:24 | MHC.CM.PN ---
per rounds pt needs to be seen by id ?need for iv antibiotics
[2020-10-15 15:27] VITALS: BP 98/57; PULSE 100; RESP 18; TEMP 36.6; O2SAT 98
--- NOTE | 2020-10-15 16:45 | W.PM.IDCN ---
History of Present Illness Data of Consult Service Date: 10/15/20 Requesting physician: Kiesha Horowitz Primary Care Provider: None Physician HPI Reason for consult: fever of unknown origin She presents with spasms left foot,and seen heel ulcers She doesnt have mobility in legs or feet and had no cushion she says She has no dysuria but does have temperature 101 She has no diarrhea or other complaints Review of Systems Review of Systems: Yes all other systems are reviewed and are negative [facility] Past Medical History Medical History Anxiety Borderline personality disorder Cervical discitis Elevated troponin Headache Intraspinal abscess MDD (major depressive disorder) Muscle spasm Osteomyelitis Paraplegia Polysubstance abuse PTSD (post-traumatic stress disorder) Quadriparesis Tobacco dependence Family History Family history: reviewed and not pertinent Social History Social History Household Members: Friend(s) Household Members Other:: Pt reports living with a friend, but comes to [facility] from [facility] Housing: House Do you presently have visiting nurse or other home services: No Alcohol intake: never Smoking Status: Former smoker Smoked in Last 30 Days: Yes Use of substances other than those prescribed or required for medical reasons: Yes Substance Use Type: IV Drugs Substance Use Frequency: Chronic Longstanding Last Used Substance Other:: no longer uses, on methadone Currently Displaying Signs/Symptoms of Drug Intoxication Withdrawal: No Have you been hit, kicked, punched, or otherwise hurt by someone within the past year? If so, by whom?: No Do you feel safe in your current relationship?: No Is there a partner from a previous relationship who is making you feel unsafe now?: No Are you made to feel afraid or neglected: No Advance Directives: No Advance Directives Information Provided: No Advance Directives Date on File: 09/26/20 Do you have thoughts of harming others: None Do you have a plan to hurt others: No Plan Recently lost weight without trying: No service: No Current occupational status: disabled Meds Allergies Allergy/AdvReac Type Severity Reaction Status Date / Time No Known Allergies Allergy Verified 10/09/20 02:10 Active Medications: Current Medications Generic Name Dose Route Start Last Admin Trade Name Freq PRN Reason Stop Dose Admin Acetaminophen 650 mg 10/13/20 20:23 10/14/20 16:16 Acetaminophen 325 Mg Tablet PO 650 mg Q6H PRN Administration Pain, Mild (Pain Scale 1-3) Baclofen 10 mg 10/11/20 13:02 10/15/20 13:16 Baclofen 10 Mg Tablet PO 10 mg 0900,1300,2100 ELIDIA Administration Bisacodyl 10 mg 10/13/20 20:24 Bisacodyl 10 Mg Supp.Rect MO DAILY PRN Constipation Bupropion HCl 300 mg 10/09/20 10:30 10/15/20 09:14 Bupropion Hcl Xl 300 Mg Tab.Er.24h PO 300 mg DAILY ELIDIA Administration Cyclobenzaprine HCl 10 mg 10/11/20 13:15 10/15/20 13:16 Cyclobenzaprine Hcl 10 Mg Tablet PO 10 mg 0900,1300,2100 ELIDIA Administration Docusate Sodium 100 mg 10/13/20 21:00 10/15/20 09:14 Docusate Sodium 100 Mg Capsule PO 100 mg BID ELIDIA Administration Doxycycline Hyclate 100 mg 10/09/20 21:00 10/15/20 09:14 Doxycycline Hyclate 100 Mg Tablet PO 100 mg Q12H ELIDIA Administration Enoxaparin Sodium 40 mg 10/10/20 09:00 10/15/20 09:13 Enoxaparin Sodium 40 Mg/0.4 Ml Syringe SUBCUT 40 mg DAILY ELIDIA Administration Fluconazole 200 mg 10/14/20 09:00 10/15/20 09:14 Fluconazole 100 Mg Tablet PO 200 mg BID ELIDIA Administration Fluticasone Propionate 2 spray 10/10/20 09:00 10/15/20 09:15 Fluticasone Propionate Nasal 16 Gm [place] NOSTRIL-B 2 spray DAILY ELIDIA Administration Gabapentin 200 mg 10/11/20 13:15 10/15/20 13:16 Gabapentin 100 Mg Capsule PO 200 mg 0900,1300,2100 ELIDIA Administration Guaifenesin 600 mg 10/13/20 20:24 10/14/20 08:31 Guaifenesin La 600 Mg Tab.Er.12h PO 600 mg BID PRN Administration Congestion Sodium Chloride 1,000 mls @ 100 mls/hr 10/13/20 20:30 10/15/20 13:15 Ns IVCONT 100 mls/hr .Q10H ELIDIA Administration Piperacillin Sod/Tazobactam 50 mls @ 100 mls/hr 10/14/20 08:00 10/15/20 15:09 Sod 3.375 gm/ Sodium Chloride IV Infused Q6H [facility] Infusion Lactulose 20 gm 10/13/20 20:24 10/14/20 08:31 Lactulose 20 Gm/30 Ml Solution PO 20 gm BID PRN Administration Constipation Magnesium Citrate 150 ml 10/09/20 10:28 10/13/20 13:40 Magnesium Citrate 300 Ml Solution PO 150 ml DAILY PRN Administration constipation Magnesium Hydroxide 30 ml 10/13/20 20:24 Milk Of Magnesia 30 Ml Oral.Susp PO DAILY PRN Constipation Methadone HCl 20 mg 10/11/20 13:15 10/15/20 13:16 Methadone Hcl 1 Mg/0.1 Ml Oral.Conc PO 20 mg 0900,1300,2100 [facility] Administration Omeprazole 20 mg 10/10/20 09:00 10/15/20 09:14 Omeprazole 20 Mg Capsule.Dr PO 20 mg DAILY ELIDIA Administration Pharmacy Consult 1 each 10/09/20 05:57 Consult Rx Perform Med Rec MISCELLANE ONCE PRN Consult order Polyethylene Glycol 17 gm 10/13/20 21:00 10/15/20 09:14 Polyethylene Glycol 3350 17 Gm Powd.Pack PO 17 gm BID [facility] Administration Senna 17.2 mg 10/09/20 21:00 10/15/20 09:14 Sennosides 8.6 Mg Tablet PO 17.2 mg BID ELIDIA Administration Sodium Biphosphate/Sodium Phosphate 118 ml 10/13/20 20:24 Sodium Phosphate,Stanly-Dibasic 133 Ml Enema MO DAILY PRN Constipation Sodium Chloride 3 ml 10/14/20 00:00 10/15/20 15:50 0.9 % Sodium Chloride Flush 3 Ml Syringe IVFLUSH Not Given QSHIFT [facility] Tizanidine HCl 4 mg 10/09/20 10:28 10/13/20 20:49 Tizanidine Hcl 4 Mg Tablet PO 4 mg Q8H PRN Administration Spasms Vitamin D 25 mcg 10/14/20 09:00 10/15/20 09:14 Cholecalciferol (Vitamin D3) 25 Mcg Tablet PO 25 mcg DAILY ELIDIA Administration Zolpidem Tartrate 5 mg 10/14/20 21:14 10/14/20 21:31 Zolpidem Tartrate 5 Mg Tablet PO 5 mg BEDTIME PRN Administration Insomnia Home Medications Medication Instructions Recorded Confirmed Last Taken Type Fleet Enema 118 ml MO DAILY PRN 09/27/20 10/09/20 Unknown History alum-mag hydroxide-simeth 30 ml PO QID PRN MDD 180 ml 09/27/20 10/09/20 09/26/20 History [Yesenia-Mox Antacid-Antigas] ammonium lactate 1 appl TOPICAL BID PRN 09/27/20 10/09/20 09/26/20 History baclofen 10 mg PO TID 09/27/20 10/09/20 10/08/20 History benzocaine 3 mg PO Q2H PRN 09/27/20 10/15/20 09/26/20 History bisacodyl 10 mg MO DAILY PRN 09/27/20 10/09/20 09/26/20 History bupropion HCl [Wellbutrin XL] 300 mg PO QAM 09/27/20 10/09/20 10/08/20 History cholecalciferol (vitamin D3) 25 mcg PO DAILY 09/27/20 10/09/20 10/08/20 History cyclobenzaprine 10 mg PO TID 09/27/20 10/09/20 10/08/20 History diclofenac sodium 2 g TOPICAL Q6H PRN 09/27/20 10/09/20 09/26/20 History docusate sodium [Colace] 100 mg PO BID 09/27/20 10/09/20 10/08/20 History enoxaparin 40 mg SUBCUT DAILY 09/27/20 10/09/20 10/08/20 History fluticasone propionate 2 spray INTRANASAL DAILY 09/27/20 10/09/20 10/08/20 History hydrocortisone 1 appl TOPICAL Q8H PRN 09/27/20 10/09/20 09/26/20 History lorazepam 0.5 mg PO Q8H PRN 09/27/20 10/09/20 09/26/20 History magnesium citrate 150 ml PO DAILY PRN 09/27/20 10/09/20 09/26/20 History magnesium hydroxide [Milk of 30 ml PO DAILY PRN 09/27/20 10/09/20 09/26/20 History Magnesia] naloxone 4 mg INTRANASAL Q3M PRN 09/27/20 10/09/20 09/26/20 History ondansetron 4 mg PO Q4H PRN 09/27/20 10/09/20 09/26/20 History pantoprazole 40 mg PO DAILY 09/27/20 10/09/20 10/08/20 History polyethylene glycol 3350 [Miralax] 17 g PO BID 09/27/20 10/09/20 10/08/20 History sennosides 17.2 mg PO BID 09/27/20 10/09/20 10/08/20 History tizanidine [Zanaflex] 4 mg PO Q8H PRN 09/27/20 10/09/20 09/25/20 History zolpidem [Ambien] 5 mg PO BEDTIME PRN 09/27/20 10/09/20 10/08/20 History gabapentin 200 mg PO TID 09/28/20 10/09/20 10/08/20 History acetaminophen 650 mg PO Q4H PRN 10/09/20 10/09/20 Unknown History bisacodyl 5 mg PO BID 10/09/20 10/09/20 Unknown History guaifenesin 600 mg PO BID PRN 10/09/20 10/09/20 10/08/20 History lactulose 30 ml PO BID PRN 10/09/20 10/09/20 Unknown History Physical Exam Vital Signs: Vital Signs: Last Vital Signs Temp 98 F 10/15/20 15:27 Pulse 100 10/15/20 15:27 Resp 18 10/15/20 15:27 BP 98/57 L 10/15/20 15:27 Pulse Ox 98 10/15/20 15:27 Body Mass Index 28.7 Const: General: cooperative Orientation/consciousness: patient oriented x3 HENMT: Head: Yes normal to inspection Mouth: Normal oral and palatal mucosa present Eyes: General: appearance normal, both eyes and all related structures Resp: Effort & Inspection: normal respiratory effort Cardio: Rate: regular rate Rhythm: regular rhythm GI: Palpation (GI): nontender : General: Yes no CVA tenderness Back/Spine/Pelvis: Back: no CVA tenderness Skin: General skin exam: no rashes or lesions noted Neuro: Other: can move arms 2/5,legs 0/5 scab left heel General: patient oriented x3 Results Labs CBC & Chem 7: 10/16/20 05:52 03/23/21 05:52 Microbiology Microbiology Results: Microbiology 10/13/20 21:03 Blood - Venous Blood Culture - Preliminary No growth after 24 hours. 10/13/20 17:57 Blood - Venous Blood Culture - Preliminary No growth after 24 hours. Assessment and Plan (1) Blister of foot: Status: Acute (2) Cellulitis: Status: Acute Continue Zosyn and Vancomycin Consider leg u/s check clot If afebrile tomorrow po Doxycycline and Augmentin for a week and Wound Clinic evaluation
[2020-10-15 19:30] VITALS: BP 100/58; PULSE 89; RESP 18; TEMP 36.6; O2SAT 98
[2020-10-15] MEDS: Zolpidem Tartrate 5 MG TABLET PO (20:53)
[2020-10-15] MEDS: 0.9 % Sodium Chloride Flush 3 ML SYRINGE IVFLUSH (21:48)
[2020-10-15 23:29] VITALS: BP 134/71; PULSE 113; RESP 16; TEMP 36.6; O2SAT 100
[2020-10-16] MEDS: 0.9 % Sodium Chloride 1,000 ML 100 ML IVCONT ×2 (01:55→09:31)
[2020-10-16] MEDS: Piperacillin Sodium/Tazobactam 3.375 GM in 0.9 % Sodium Chloride 50 ML IV ×4 (01:57→20:43)
[2020-10-16 03:38] VITALS: BP 110/59; PULSE 110; RESP 18; TEMP 36.4; O2SAT 97
[2020-10-16 06:46] LABS: Hematocrit 31.6 % (37-47); Hemoglobin 10.2 g/dl (12.0-16.0); Mean Corpuscular HGB Conc 32.3 g/dl (31.0-35.0); Mean Corpuscular Hemoglobin 28.6 pg (27.0-33.0); Mean Corpuscular Volume 88.5 fL (80-98); Mean Platelet Volume 9.2 fL (9.4-12.3); Platelet Count 450 X10*3/uL (160-400); Red Blood Count 3.57 X10*6/uL (4.20-5.50); Red Cell Distribution Width 13.1 % (11.0-16.0); White Blood Count 8.3 X10*3/uL (4.8-10.8)
[2020-10-16 06:49] VITALS: BP 119/67; PULSE 106; RESP 18; TEMP 35.5; O2SAT 96
[2020-10-16 07:24] LABS: Blood Urea Nitrogen 6 mg/dL (9-16); Creatinine Clr Calc Pharmacy 131.7; Estimated Glomerular Filt Rate > 60; Glucose Random 82 mg/dL (60-115)
[2020-10-16 07:46] LABS: Anion Gap 18 (12-20); Calcium 8.8 mg/dL (8.4-10.2); Carbon Dioxide 21 mmol/L (22-29); Chloride 104 mmol/L (96-108); Potassium 4.5 mmol/L (3.3-5.1); Sodium 138 mmol/L (135-145)
[2020-10-16] MEDS: 0.9 % Sodium Chloride Flush 3 ML SYRINGE IVFLUSH ×2 (09:30→20:38)
[2020-10-16] MEDS: polyethylene glycoL 3350 17 GM POWD.PACK PO ×2 (09:31→20:39)
[2020-10-16] MEDS: Enoxaparin Sodium 40 MG/0.4 ML SYRINGE SUBCUT (09:31)
[2020-10-16] MEDS: buPROPion HCl XL 300 MG TAB.ER.24H PO (09:32)
[2020-10-16] MEDS: Fluconazole 100 MG TABLET 200 MG PO ×2 (09:32→20:37)
[2020-10-16] MEDS: Sennosides 8.6 MG TABLET 17.2 MG PO ×2 (09:32→20:36)
[2020-10-16] MEDS: Omeprazole 20 MG CAPSULE.DR PO (09:32)
[2020-10-16] MEDS: Cholecalciferol (Vitamin D3) 25 MCG TABLET PO (09:33)
[2020-10-16] MEDS: Docusate Sodium 100 MG CAPSULE PO ×2 (09:33→20:36)
[2020-10-16] MEDS: Gabapentin 100 MG CAPSULE 200 MG PO ×3 (09:54→20:35)
[2020-10-16] MEDS: Cyclobenzaprine HCl 10 MG TABLET PO ×3 (09:54→20:38)
[2020-10-16] MEDS: Baclofen 10 MG TABLET PO ×3 (09:54→20:38)
[2020-10-16 11:03] VITALS: BP 98/54; PULSE 120; RESP 18; TEMP 35.5; O2SAT 100
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
--- NOTE | 2020-10-16 15:25 | HO.PM.IMPN ---
Subjective Subjective Date of Service: 10/16/20 Interval History: The patient was seen and evaluated this morning Laying in bed, feels comfortable overall, have pain in her heel Denies any fever, chills since last night No reported other overnight events. Systemic review: No fever, chills or weakness No chest pain, palpitation No shortness of breath or coughing No abdominal pain, nausea or vomiting No urinary symptoms Left heel rash, no drain Physical Exam Vital Signs: Vital Signs: Last Vital Signs Temp 96 F L 10/16/20 11:03 Pulse 120 H 10/16/20 11:03 Resp 18 10/16/20 11:03 BP 98/54 L 10/16/20 11:03 Pulse Ox 100 10/16/20 11:03 Body Mass Index 28.7 Const: Other: Constitutional : Alert, oriented, not in distress Neck : Normal inspection, Supple Cardiovascular : RRR, S1 S2, no lower extremity edema Respiratory : Good bilateral air entry, no crackles, wheezes or rhonchi Gastrointestinal: soft, lax, Normal bowel sounds, Non tender Skin : Warm/Dry, L heel blister/erythema Neurological : Alert & oriented x3, paraplegic Objective Data Current Medications Generic Name Dose Route Start Last Admin Trade Name Freq PRN Reason Stop Dose Admin Acetaminophen 650 mg 10/13/20 20:23 10/14/20 16:16 Acetaminophen 325 Mg Tablet PO 650 mg Q6H PRN Administration Pain, Mild (Pain Scale 1-3) Baclofen 10 mg 10/11/20 13:02 10/16/20 13:15 Baclofen 10 Mg Tablet PO 10 mg 0900,1300,2100 ELIDIA Administration Bisacodyl 10 mg 10/13/20 20:24 Bisacodyl 10 Mg Supp.Rect [place] DAILY PRN Constipation Bupropion HCl 300 mg 10/09/20 10:30 10/16/20 09:32 Bupropion Hcl Xl 300 Mg Tab.Er.24h PO 300 mg DAILY ELIDIA Administration Cyclobenzaprine HCl 10 mg 10/11/20 13:15 10/16/20 13:15 Cyclobenzaprine Hcl 10 Mg Tablet PO 10 mg 0900,1300,2100 ELIDIA Administration Docusate Sodium 100 mg 10/13/20 21:00 10/16/20 09:33 Docusate Sodium 100 Mg Capsule PO 100 mg BID ELIDIA Administration Doxycycline Hyclate 100 mg 10/09/20 21:00 10/16/20 09:33 Doxycycline Hyclate 100 Mg Tablet PO 100 mg Q12H ELIDIA Administration Enoxaparin Sodium 40 mg 10/10/20 09:00 10/16/20 09:31 Enoxaparin Sodium 40 Mg/0.4 Ml Syringe SUBCUT 40 mg DAILY ELIDIA Administration Fluconazole 200 mg 10/14/20 09:00 10/16/20 09:32 Fluconazole 100 Mg Tablet PO 200 mg BID [facility] Administration Fluticasone Propionate 2 spray 10/10/20 09:00 10/16/20 10:04 Fluticasone Propionate Nasal 16 Gm [place] NOSTRIL-B Not Given DAILY [facility] Gabapentin 200 mg 10/11/20 13:15 10/16/20 13:15 Gabapentin 100 Mg Capsule PO 200 mg 0900,1300,2100 [facility] Administration Guaifenesin 600 mg 10/13/20 20:24 10/14/20 08:31 Guaifenesin La 600 Mg Tab.Er.12h PO 600 mg BID PRN Administration Congestion Sodium Chloride 1,000 mls @ 100 mls/hr 10/13/20 20:30 10/16/20 09:31 Ns IVCONT 100 mls/hr .Q10H [facility] Administration Piperacillin Sod/Tazobactam 50 mls @ 100 mls/hr 10/14/20 08:00 10/16/20 14:27 Sod 3.375 gm/ Sodium Chloride IV Infused Q6H [facility] Infusion Lactulose 20 gm 10/13/20 20:24 10/14/20 08:31 Lactulose 20 Gm/30 Ml Solution PO 20 gm BID PRN Administration Constipation Magnesium Citrate 150 ml 10/09/20 10:28 10/13/20 13:40 Magnesium Citrate 300 Ml Solution PO 150 ml DAILY PRN Administration constipation Magnesium Hydroxide 30 ml 10/13/20 20:24 Milk Of Magnesia 30 Ml Oral.Susp PO DAILY PRN Constipation Methadone HCl 20 mg 10/11/20 13:15 10/16/20 13:15 Methadone Hcl 1 Mg/0.1 Ml Oral.Conc PO 20 mg 0900,1300,2100 [facility] Administration Omeprazole 20 mg 10/10/20 09:00 10/16/20 09:32 Omeprazole 20 Mg Capsule.Dr PO 20 mg DAILY ELIDIA Administration Pharmacy Consult 1 each 10/09/20 05:57 Consult Rx Perform Med Rec MISCELLANE ONCE PRN Consult order Polyethylene Glycol 17 gm 10/13/20 21:00 10/16/20 09:31 Polyethylene Glycol 3350 17 Gm Powd.Pack PO 17 gm BID ELIDIA Administration Senna 17.2 mg 10/09/20 21:00 10/16/20 09:32 Sennosides 8.6 Mg Tablet PO 17.2 mg BID ELIDIA Administration Sodium Biphosphate/Sodium Phosphate 118 ml 10/13/20 20:24 Sodium Phosphate,[place]-Dibasic 133 Ml Enema [place] DAILY PRN Constipation Sodium Chloride 3 ml 10/14/20 00:00 10/16/20 09:30 0.9 % Sodium Chloride Flush 3 Ml Syringe IVFLUSH 3 ml QSHIFT ELIDIA Administration Tizanidine HCl 4 mg 10/09/20 10:28 10/13/20 20:49 Tizanidine Hcl 4 Mg Tablet PO 4 mg Q8H PRN Administration Spasms Vitamin D 25 mcg 10/14/20 09:00 10/16/20 09:33 Cholecalciferol (Vitamin D3) 25 Mcg Tablet PO 25 mcg DAILY [facility]IDIA Administration Zolpidem Tartrate 5 mg 10/14/20 21:14 10/15/20 20:53 Zolpidem Tartrate 5 Mg Tablet PO 5 mg BEDTIME PRN Administration Insomnia Labs CBC & Chem 7: 10/16/20 05:52 10/16/20 05:52 Microbiology Microbiology Results: Microbiology 10/13/20 21:03 Blood - Venous Blood Culture - Preliminary No growth after 48 hours. 10/13/20 17:57 Blood - Venous Blood Culture - Preliminary No growth after 48 hours. Assessment and Plan (1) Blister of foot: Status: Acute (2) Cellulitis: Status: Acute (3) Sepsis: Status: Acute Assessment and Plan: hospital d#3 40yo F with PMHx IVDU resulting in osteomyelitis, spinal abscess, and paraparesis, MDD, BPD recently discharged to [facility] but felt unsafe at rehab was awaiting placement in ED for 5d but then developed fever, hypotension, and concern for cellulitis around blisters on L heel # Sepsis, resolved # cellulitis was on doxycycline for MSSA bacteremia/diskitis/osteomyelitis and is followed by [facility] ID. Continue pip/randell. ID consult. follow BCx # hypotension resolved # MSSA bacteremia/diskitis/osteomyelitis continue doxycycline # candidemia [present prior to admission] continue fluconazole # pressure injury of heels wound care consult # opioid use disorder continue methadone # mood disorder continue bupropion # VTE ppx LMWH
[2020-10-16 15:59] LABS: COVID-19 Test Negative (Negative); IDNOW Serial# 9DD0AD1C
[2020-10-16 16:00] VITALS: BP 100/55; PULSE 100; RESP 18; TEMP 36.2; O2SAT 100
[2020-10-16 19:07] VITALS: BP 94/55; PULSE 80; RESP 20; TEMP 36; O2SAT 96
[2020-10-16] MEDS: Zolpidem Tartrate 5 MG TABLET PO (20:36)
[2020-10-17] VITALS: BP 94/52; PULSE 107; RESP 18; TEMP 37.4; O2SAT 98
[2020-10-17] MEDS: Piperacillin Sodium/Tazobactam 3.375 GM in 0.9 % Sodium Chloride 50 ML IV ×4 (01:33→19:59)
[2020-10-17 04:00] VITALS: BP 94/54; PULSE 103; RESP 18; TEMP 37.2; O2SAT 99
[2020-10-17 07:38] VITALS: BP 111/68; PULSE 108; RESP 17; TEMP 36.8; O2SAT 100
[2020-10-17] MEDS: polyethylene glycoL 3350 17 GM POWD.PACK PO ×2 (07:56→19:59)
[2020-10-17] MEDS: Acetaminophen 325 MG TABLET 650 MG PO (07:56)
[2020-10-17] MEDS: Enoxaparin Sodium 40 MG/0.4 ML SYRINGE SUBCUT (07:57)
[2020-10-17] MEDS: Sennosides 8.6 MG TABLET 17.2 MG PO ×2 (07:57→19:59)
[2020-10-17] MEDS: Fluconazole 100 MG TABLET 200 MG PO ×2 (07:57→19:59)
[2020-10-17] MEDS: buPROPion HCl XL 300 MG TAB.ER.24H PO (07:58)
[2020-10-17] MEDS: Cholecalciferol (Vitamin D3) 25 MCG TABLET PO (07:58)
[2020-10-17] MEDS: Omeprazole 20 MG CAPSULE.DR PO (07:58)
[2020-10-17] MEDS: Docusate Sodium 100 MG CAPSULE PO ×2 (07:58→19:59)
[2020-10-17] MEDS: 0.9 % Sodium Chloride Flush 3 ML SYRINGE IVFLUSH ×3 (07:59→20:05)
[2020-10-17] MEDS: Cyclobenzaprine HCl 10 MG TABLET PO ×3 (08:01→20:14)
[2020-10-17] MEDS: Gabapentin 100 MG CAPSULE 200 MG PO ×3 (09:07→20:13)
[2020-10-17] MEDS: Baclofen 10 MG TABLET PO ×3 (09:07→20:14)
[2020-10-17 11:33] VITALS: BP 111/62; PULSE 108; RESP 18; TEMP 36.3; O2SAT 96
--- NOTE | 2020-10-17 11:44 | MHC.CLN ---
F/U PO INTAKE 75-100% DIET RX: REGULAR-APPROPRIATE STAGE 2 L HEEL-[place] ENSURE IN PLACE TO INCREASE KCALS AND PROMOTE WOUND HEALING FOLLOWING
[2020-10-17 15:00] VITALS: BP 99/62; PULSE 100; RESP 20; TEMP 36; O2SAT 93
--- NOTE | 2020-10-17 16:48 | HO.PM.IMPN ---
Subjective Subjective Date of Service: 10/17/20 Interval History: The patient was seen and evaluated this morning Laying in bed, feels comfortable overall, have pain in her heel Denies any fever, chills since last night No reported other overnight events. Systemic review: No fever, chills or weakness No chest pain, palpitation No shortness of breath or coughing No abdominal pain, nausea or vomiting No urinary symptoms Left heel rash, no drain Physical Exam Vital Signs: Vital Signs: Last Vital Signs Temp 96.8 F 10/17/20 15:00 Pulse 100 10/17/20 15:00 Resp 20 10/17/20 15:00 BP 99/62 10/17/20 15:00 Pulse Ox 93 10/17/20 15:00 Body Mass Index 28.7 Const: Other: Constitutional : Alert, oriented, not in distress Neck : Normal inspection, Supple Cardiovascular : RRR, S1 S2, no lower extremity edema Respiratory : Good bilateral air entry, no crackles, wheezes or rhonchi Gastrointestinal: soft, lax, Normal bowel sounds, Non tender Skin : Warm/Dry, L heel blister/erythema Neurological : Alert & oriented x3, paraplegic Objective Data Current Medications Generic Name Dose Route Start Last Admin Trade Name Freq PRN Reason Stop Dose Admin Acetaminophen 650 mg 10/13/20 20:23 10/17/20 07:56 Acetaminophen 325 Mg Tablet PO 650 mg Q6H PRN Administration Pain, Mild (Pain Scale 1-3) Baclofen 10 mg 10/11/20 13:02 10/17/20 13:13 Baclofen 10 Mg Tablet PO 10 mg 0900,1300,2100 ELIDIA Administration Bisacodyl 10 mg 10/13/20 20:24 Bisacodyl 10 Mg Supp.Rect [place] DAILY PRN Constipation Bupropion HCl 300 mg 10/09/20 10:30 10/17/20 07:58 Bupropion Hcl Xl 300 Mg Tab.Er.24h PO 300 mg DAILY ELIDIA Administration Cyclobenzaprine HCl 10 mg 10/11/20 13:15 10/17/20 13:14 Cyclobenzaprine Hcl 10 Mg Tablet PO 10 mg 0900,1300,2100 EL[facility]IA Administration Docusate Sodium 100 mg 10/13/20 21:00 10/17/20 07:58 Docusate Sodium 100 Mg Capsule PO 100 mg BID ELIDIA Administration Doxycycline Hyclate 100 mg 10/09/20 21:00 10/17/20 07:58 Doxycycline Hyclate 100 Mg Tablet PO 100 mg Q12H [facility]IDIA Administration Enoxaparin Sodium 40 mg 10/10/20 09:00 10/17/20 07:57 Enoxaparin Sodium 40 Mg/0.4 Ml Syringe SUBCUT 40 mg DAILY ELIDIA Administration Fluconazole 200 mg 10/14/20 09:00 10/17/20 07:57 Fluconazole 100 Mg Tablet PO 200 mg BID ELIDIA Administration Fluticasone Propionate 2 spray 10/10/20 09:00 10/17/20 16:09 Fluticasone Propionate Nasal 16 Gm [place] NOSTRIL-B Not Given DAILY [facility] Gabapentin 200 mg 10/11/20 13:15 10/17/20 13:13 Gabapentin 100 Mg Capsule PO 200 mg 0900,1300,2100 [facility] Administration Guaifenesin 600 mg 10/13/20 20:24 10/14/20 08:31 Guaifenesin La 600 Mg Tab.Er.12h PO 600 mg BID PRN Administration Congestion Piperacillin Sod/Tazobactam 50 mls @ 100 mls/hr 10/14/20 08:00 10/17/20 16:09 Sod 3.375 gm/ Sodium Chloride IV Infused Q6H [facility] Infusion Lactulose 20 gm 10/13/20 20:24 10/14/20 08:31 Lactulose 20 Gm/30 Ml Solution PO 20 gm BID PRN Administration Constipation Magnesium Citrate 150 ml 10/09/20 10:28 10/13/20 13:40 Magnesium Citrate 300 Ml Solution PO 150 ml DAILY PRN Administration constipation Magnesium Hydroxide 30 ml 10/13/20 20:24 Milk Of Magnesia 30 Ml Oral.Susp PO DAILY PRN Constipation Methadone HCl 20 mg 10/11/20 13:15 10/17/20 13:26 Methadone Hcl 1 Mg/0.1 Ml Oral.Conc PO 20 mg 0900,1300,2100 [facility] Administration Omeprazole 20 mg 10/10/20 09:00 10/17/20 07:58 Omeprazole 20 Mg Capsule. PO 20 mg DAILY ELIDIA Administration Pharmacy Consult 1 each 10/09/20 05:57 Consult Rx Perform Med Rec MISCELLANE ONCE PRN Consult order Polyethylene Glycol 17 gm 10/13/20 21:00 10/17/20 07:56 Polyethylene Glycol 3350 17 Gm Powd.Pack PO 17 gm BID ELIDIA Administration Senna 17.2 mg 10/09/20 21:00 10/17/20 07:57 Sennosides 8.6 Mg Tablet PO 17.2 mg BID ELIDIA Administration Sodium Biphosphate/Sodium Phosphate 118 ml 10/13/20 20:24 Sodium Phosphate,[place]-Dibasic 133 Ml Enema [place] DAILY PRN Constipation Sodium Chloride 3 ml 10/14/20 00:00 10/17/20 07:59 0.9 % Sodium Chloride Flush 3 Ml Syringe IVFLUSH 3 ml QSHIFT ELIDIA Administration Tizanidine HCl 4 mg 10/09/20 10:28 10/13/20 20:49 Tizanidine Hcl 4 Mg Tablet PO 4 mg Q8H PRN Administration Spasms Vitamin D 25 mcg 10/14/20 09:00 10/17/20 07:58 Cholecalciferol (Vitamin D3) 25 Mcg Tablet PO 25 mcg DAILY [facility]IA Administration Zolpidem Tartrate 5 mg 10/14/20 21:14 10/16/20 20:36 Zolpidem Tartrate 5 Mg Tablet PO 5 mg BEDTIME PRN Administration Insomnia Labs CBC & Chem 7: 10/16/20 05:52 10/16/20 05:52 Microbiology Microbiology Results: Microbiology 10/13/20 21:03 Blood - Venous Blood Culture - Preliminary No growth after 48 hours. 10/13/20 17:57 Blood - Venous Blood Culture - Preliminary No growth after 48 hours. 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 Continue pip/randell. ID consult. follow BCx # hypotension resolved # MSSA bacteremia/diskitis/osteomyelitis continue doxycycline # candidemia [present prior to admission] continue fluconazole # pressure injury of heels wound care consult # opioid use disorder continue methadone # mood disorder continue bupropion # VTE ppx LMWH
[2020-10-17] MEDS: Lactulose 20 GM/30 ML SOLUTION PO (17:13)
[2020-10-17 19:04] VITALS: BP 110/60; PULSE 85; RESP 20; TEMP 36; O2SAT 98
[2020-10-17] MEDS: Zolpidem Tartrate 5 MG TABLET PO (20:14)
[2020-10-18] VITALS (7 sets, daily range): BP systolic 94–128; BP diastolic 57–67; PULSE 99–117; RESP 18–20; TEMP 36.1–37.8; O2SAT 95–100
[2020-10-18] MEDS: Piperacillin Sodium/Tazobactam 3.375 GM in 0.9 % Sodium Chloride 50 ML IV ×3 (03:00→13:03)
[2020-10-18] MEDS: Omeprazole 20 MG CAPSULE.DR PO (08:50)
[2020-10-18] MEDS: Fluconazole 100 MG TABLET 200 MG PO ×2 (08:50→20:39)
[2020-10-18] MEDS: buPROPion HCl XL 300 MG TAB.ER.24H PO (08:50)
[2020-10-18] MEDS: Cholecalciferol (Vitamin D3) 25 MCG TABLET PO (08:50)
[2020-10-18] MEDS: Sennosides 8.6 MG TABLET 17.2 MG PO ×2 (08:50→20:40)
[2020-10-18] MEDS: Docusate Sodium 100 MG CAPSULE PO ×2 (08:50→20:39)
[2020-10-18] MEDS: Enoxaparin Sodium 40 MG/0.4 ML SYRINGE SUBCUT (08:51)
[2020-10-18] MEDS: 0.9 % Sodium Chloride Flush 3 ML SYRINGE IVFLUSH ×3 (08:51→20:40)
[2020-10-18] MEDS: polyethylene glycoL 3350 17 GM POWD.PACK PO ×2 (08:52→20:40)
[2020-10-18] MEDS: Baclofen 10 MG TABLET PO ×3 (09:03→20:39)
[2020-10-18] MEDS: Fluticasone Propionate Nasal 16 GM SPRAY 2 SPRAY NOSTRIL-B (09:03)
[2020-10-18] MEDS: Cyclobenzaprine HCl 10 MG TABLET PO ×3 (09:03→20:39)
[2020-10-18] MEDS: Gabapentin 100 MG CAPSULE 200 MG PO ×3 (09:03→20:39)
[2020-10-18] MEDS: Lactulose 20 GM/30 ML SOLUTION PO ×2 (09:13→20:47)
--- NOTE | 2020-10-18 13:33 | MHC.CM.PN ---
[facility] is going for Medicaid approval. Anticipate dc today. CM will continue to follow.
--- NOTE | 2020-10-18 13:59 | HO.PM.IMPN ---
Subjective Subjective Date of Service: 10/18/20 Interval History: The patient was seen and evaluated this morning Laying in bed, feels comfortable overall Denies any fever, chills since last night No reported other overnight events. Systemic review: No fever, chills or weakness No chest pain, palpitation No shortness of breath or coughing No abdominal pain, nausea or vomiting No urinary symptoms Left heel rash, no drain Physical Exam Vital Signs: Vital Signs: Last Vital Signs Temp 97.5 F 10/18/20 11:35 Pulse 117 H 10/18/20 11:35 Resp 20 10/18/20 11:35 BP 98/57 L 10/18/20 11:35 Pulse Ox 98 10/18/20 11:35 Body Mass Index 28.7 Const: Other: Constitutional : Alert, oriented, not in distress Neck : Normal inspection, Supple Cardiovascular : RRR, S1 S2, no lower extremity edema Respiratory : Good bilateral air entry, no crackles, wheezes or rhonchi Gastrointestinal: soft, lax, Normal bowel sounds, Non tender Skin : Warm/Dry, L heel blister/erythema Neurological : Alert & oriented x3, paraplegic Objective Data Current Medications Generic Name Dose Route Start Last Admin Trade Name Freq PRN Reason Stop Dose Admin Acetaminophen 650 mg 10/13/20 20:23 10/17/20 07:56 Acetaminophen 325 Mg Tablet PO 650 mg Q6H PRN Administration Pain, Mild (Pain Scale 1-3) Baclofen 10 mg 10/11/20 13:02 10/18/20 13:03 Baclofen 10 Mg Tablet PO 10 mg 0900,1300,2100 ELIDIA Administration Bisacodyl 10 mg 10/13/20 20:24 Bisacodyl 10 Mg Supp.Rect [place] DAILY PRN Constipation Bupropion HCl 300 mg 10/09/20 10:30 10/18/20 08:50 Bupropion Hcl Xl 300 Mg Tab.Er.24h PO 300 mg DAILY ELIDIA Administration Cyclobenzaprine HCl 10 mg 10/11/20 13:15 10/18/20 13:02 Cyclobenzaprine Hcl 10 Mg Tablet PO 10 mg 0900,1300,2100 ELIDIA Administration Docusate Sodium 100 mg 10/13/20 21:00 10/18/20 08:50 Docusate Sodium 100 Mg Capsule PO 100 mg BID ELIDIA Administration Doxycycline Hyclate 100 mg 10/09/20 21:00 10/18/20 08:50 Doxycycline Hyclate 100 Mg Tablet PO 100 mg Q12H ELIDIA Administration Enoxaparin Sodium 40 mg 10/10/20 09:00 10/18/20 08:51 Enoxaparin Sodium 40 Mg/0.4 Ml Syringe SUBCUT 40 mg DAILY ELIDIA Administration Fluconazole 200 mg 10/14/20 09:00 10/18/20 08:50 Fluconazole 100 Mg Tablet PO 200 mg BID ELIDIA Administration Fluticasone Propionate 2 spray 10/10/20 09:00 10/18/20 09:03 Fluticasone Propionate Nasal 16 Gm [place] NOSTRIL-B 2 spray DAILY ELIDIA Administration Gabapentin 200 mg 10/11/20 13:15 10/18/20 13:02 Gabapentin 100 Mg Capsule PO 200 mg 0900,1300,2100 ELIDIA Administration Guaifenesin 600 mg 10/13/20 20:24 10/14/20 08:31 Guaifenesin La 600 Mg Tab.Er.12h PO 600 mg BID PRN Administration Congestion Piperacillin Sod/Tazobactam 50 mls @ 100 mls/hr 10/14/20 08:00 10/18/20 13:03 Sod 3.375 gm/ Sodium Chloride IV 100 mls/hr Q6H ELIDIA Administration Lactulose 20 gm 10/13/20 20:24 10/18/20 09:13 Lactulose 20 Gm/30 Ml Solution PO 20 gm BID PRN Administration Constipation Magnesium Citrate 150 ml 10/09/20 10:28 10/13/20 13:40 Magnesium Citrate 300 Ml Solution PO 150 ml DAILY PRN Administration constipation Magnesium Hydroxide 30 ml 10/13/20 20:24 Milk Of Magnesia 30 Ml Oral.Susp PO DAILY PRN Constipation Methadone HCl 20 mg 10/11/20 13:15 10/18/20 13:02 Methadone Hcl 1 Mg/0.1 Ml Oral.Conc PO 20 mg 0900,1300,2100 ELIDIA Administration Omeprazole 20 mg 10/10/20 09:00 10/18/20 08:50 Omeprazole 20 Mg Capsule.Dr PO 20 mg DAILY ELDIIA Administration Pharmacy Consult 1 each 10/09/20 05:57 Consult Rx Perform Med Rec MISCELLANE ONCE PRN Consult order Polyethylene Glycol 17 gm 10/13/20 21:00 10/18/20 08:52 Polyethylene Glycol 3350 17 Gm Powd.Pack PO 17 gm BID ELIDIA Administration Senna 17.2 mg 10/09/20 21:00 10/18/20 08:50 Sennosides 8.6 Mg Tablet PO 17.2 mg BID ELIDIA Administration Sodium Biphosphate/Sodium Phosphate 118 ml 10/13/20 20:24 Sodium Phosphate,[place]-Dibasic 133 Ml Enema [place] DAILY PRN Constipation Sodium Chloride 3 ml 10/14/20 00:00 10/18/20 08:51 0.9 % Sodium Chloride Flush 3 Ml Syringe IVFLUSH 3 ml QSHIFT ELIDIA Administration Tizanidine HCl 4 mg 10/09/20 10:28 10/13/20 20:49 Tizanidine Hcl 4 Mg Tablet PO 4 mg Q8H PRN Administration Spasms Vitamin D 25 mcg 10/14/20 09:00 10/18/20 08:50 Cholecalciferol (Vitamin D3) 25 Mcg Tablet PO 25 mcg DAILY ELIDIA Administration Zolpidem Tartrate 5 mg 10/14/20 21:14 10/17/20 20:14 Zolpidem Tartrate 5 Mg Tablet PO 5 mg BEDTIME PRN Administration Insomnia Labs CBC & Chem 7: 10/16/20 05:52 10/16/20 05:52 Microbiology Microbiology Results: Microbiology 10/13/20 21:03 Blood - Venous Blood Culture - Preliminary No growth after 48 hours. 10/13/20 17:57 Blood - Venous Blood Culture - Preliminary No growth after 48 hours. 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 Discontinue pip/randell. , change to Augmentin ID consult. Use recommended for 2 weeks on discharge follow BCx # hypotension resolved # MSSA bacteremia/diskitis/osteomyelitis continue doxycycline # candidemia [present prior to admission] continue fluconazole # pressure injury of heels wound care consult # opioid use disorder continue methadone # mood disorder continue bupropion # VTE ppx LMWH
--- NOTE | 2020-10-18 14:30 | MHC.CM.PN ---
CM met with pt to discuss DC planning., pt reports she did like it at [facility] until she started having trouble with the nurse and aid. pt reports because of that, she does not want to go to a [facility] facility. pt reports she was at [facility] in the past but at the time was new to SNFs and every time she would complain to her mother about something, her mother would call and file complaints with the nurses. she reports she is worried they will not take her back because of this. Pt reports she is on methadone however it is not for maintenance. She reports she used to be on Fentanyl and Dilaudid but while at [facility] they changed it to methadone. Per discussion, a referral was broadcast to several facilities including [facility].
[2020-10-18] MEDS: Amoxicillin/Potassium Clav 875 MG TABLET PO (20:39)
[2020-10-18] MEDS: Zolpidem Tartrate 5 MG TABLET PO (20:39)
[2020-10-19] VITALS: BP 118/68; PULSE 99; RESP 18; TEMP 37.1; O2SAT 98
[2020-10-19 04:00] VITALS: BP 119/64; PULSE 101; RESP 18; TEMP 37; O2SAT 98
[2020-10-19 07:49] VITALS: BP 125/58; PULSE 105; RESP 18; TEMP 36.8; O2SAT 99
[2020-10-19] MEDS: buPROPion HCl XL 300 MG TAB.ER.24H PO (09:20)
[2020-10-19] MEDS: Fluconazole 100 MG TABLET 200 MG PO (09:20)
[2020-10-19] MEDS: polyethylene glycoL 3350 17 GM POWD.PACK PO (09:23)
[2020-10-19] MEDS: Enoxaparin Sodium 40 MG/0.4 ML SYRINGE SUBCUT (09:23)
[2020-10-19] MEDS: Sennosides 8.6 MG TABLET 17.2 MG PO (09:23)
[2020-10-19] MEDS: Omeprazole 20 MG CAPSULE.DR PO (09:23)
[2020-10-19] MEDS: Docusate Sodium 100 MG CAPSULE PO (09:23)
[2020-10-19] MEDS: Amoxicillin/Potassium Clav 875 MG TABLET PO (09:23)
[2020-10-19] MEDS: Cholecalciferol (Vitamin D3) 25 MCG TABLET PO (09:23)
[2020-10-19] MEDS: Gabapentin 100 MG CAPSULE 200 MG PO ×2 (09:30→13:45)
[2020-10-19] MEDS: Baclofen 10 MG TABLET PO ×2 (09:30→13:45)
[2020-10-19] MEDS: Cyclobenzaprine HCl 10 MG TABLET PO ×2 (09:32→13:45)
[2020-10-19] MEDS: Fluticasone Propionate Nasal 16 GM SPRAY 2 SPRAY NOSTRIL-B (09:40)
[2020-10-19 12:00] VITALS: BP 115/48; PULSE 98; RESP 20; O2SAT 99
--- NOTE | 2020-10-19 12:59 | MHC.CM.PN ---
MDS was [facility] this am. [facility] has submitted Level 2. DC is anticipated today.
[2020-10-19 13:00] LABS: COVID-19 Test Negative (Negative); IDNOW Serial# 9DD0AD1C
--- NOTE | 2020-10-19 13:18 | MHC.CLN ---
F/U PO INTAKE 75% AVG DIET RX: REGULAR-APPROPRIATE STAGE 2 L HEEL-[place] AND ENSURE IN PLACE PROVIDES 700KCALS, 45G PROTEIN FOLLOWING
--- NOTE | 2020-10-19 14:18 | MHC.CM.PN ---
DC to [facility] in [place] [facility] via BLS @ 16:00 today.
[2020-10-19 15:40] VITALS: BP 120/73; PULSE 100; RESP 18; TEMP 36.1; O2SAT 96
== END 2020-10-19 16:00 | disposition skilled nursing facility (03) | DRG 383 ==
LOC: HO.ED 02:26 → HO.EDOVER 10-13 23:27 → HO.IMC 10-14 19:29
PROVIDERS: Physician Assistant; Physician Assistant Medical; Admitting Provider Hospitalist; Emergency Provider Student in an Organized Health Care Education/Training Program; Visit Provider Student in an Organized Health Care Education/Training Program
DX: L03.116 Cellulitis of left lower limb (principal); G82.50 Quadriplegia, unspecified; L89.616 Pressure-induced deep tissue damage of right heel; F11.20 Opioid dependence, uncomplicated; L89.626 Pressure-induced deep tissue damage of left heel; M86.9 Osteomyelitis, unspecified; S90.822A Blister (nonthermal), left foot, initial encounter; X58.XXXA Exposure to other specified factors, initial encounter; Y93.9 Activity, unspecified; Y92.9 Unspecified place or not applicable; Y99.9 Unspecified external cause status; F39 Unspecified mood [affective] disorder; N39.0 Urinary tract infection, site not specified; Z20.822 Contact with and (suspected) exposure to COVID-19; Z79.52 Long term (current) use of systemic steroids; Z87.891 Personal history of nicotine dependence; Z79.899 Other long term (current) drug therapy
CPT/HCPCS: 0241U; 36415; 71045; 73630; 80048; 80053; 80076; 80307; 80320; 81003; 81025; 82140; 83605; 83690; 83735; 83880; 85025; 85027; 85610; 85730; 87040; 87635; 93925; 93970; 97110; 97162; 97167; 99285; J0696; J1650; J2543